=== PATIENT | female | born 1950 | race Hispanic/Latino ===

== ENCOUNTER 2018-04-09 15:48 | Emergency (ER) | payer OTHER ==
--- OUTSIDE RECORDS SUMMARY | 2018-04-09 15:51 | XMS REPORT ---
:1950 Author Organization eClinicalWorks Care Team Providers Name Role Phone DelgadoRosieh Provider Role Unavailable Allergies, Adverse Reactions, Alerts Substance Reaction Event Type codeine Info Not Available Drug Allergy Problems Problem Type Condition Code Onset Dates Condition Status Problem Vitamin D deficiency E55.9 Active Problem Diverticulosis large intestine w/o K57.30 Active perforation or abscess w/o bleeding Problem Benign essential HTN I10 Active Problem Pharyngitis, unspecified etiology J02.9 Active Assessment Atherosclerosis of coronary artery I25.10 Active of [place] heart Problem Edema of foot R60.0 Active Assessment History of CVA (cerebrovascular Z86.73 Active accident) without residual deficits Assessment CKD (chronic kidney disease) stage N18.3 Active 3, GFR 30-59 ml/min Problem Cough R05 Active Problem History of CVA (cerebrovascular Z86.73 Active accident) without residual deficits Problem Irritable bowel syndrome without K58.9 Active diarrhea Problem Atherosclerosis of coronary artery I25.10 Active of [place] heart Problem Hyperlipidemia, mixed E78.2 Active Assessment Diabetes type 2, controlled E11.9 Active Assessment Hyperlipidemia, mixed E78.2 Active Assessment Benign essential HTN I10 Active Problem Diabetes type 2, controlled E11.9 Active Problem Chronic pancreatitis K86.1 Active Problem Tremor R25.1 Active Problem Weakness R53.1 Active Assessment Tremor R25.1 Active Problem CKD (chronic kidney disease) stage N18.3 Active 3, GFR 30-59 ml/min Problem Osteoporosis M81.0 Active Medications Medication Code Code Instructions Start End Status Dosage System Date Date Amlodipine ND 81656273072 10 MG Orally Active 1 tablet Besylate Once a day Vitamin D3 [facility] 17591738811 1000 UNIT Orally Active 1 capsule Once a day Magnesium ND 79836424685 250 MG Orally Active 1 tablet Once a day with a meal Ranexa ND 82980910795 500 MG Orally Active 1 tablet Twice a day Plavix ND 83106098569 75 MG Orally Active 1 tablet Once a day Carbidopa-Levod NDC 0 Active not opa CR defined Furosemide ND 78367124527 20 MG Orally Active 1 tablet Once a day Gabapentin [facility] 62319889985 600 MG Orally Active 1 tablet Once a day Simvastatin [facility] 24316891789 10 MG Orally Active 1 tablet Once a day in the evening Crestor [facility] 85442230067 20 MG Active 1 TAB(S) ONCE A DAY (AT BEDTIME) ORALLY Carvedilol [facility] 43835457971 12.5 MG Orally Active not defined Aspir-81 [facility] 15135989923 81 MG Orally Active 1 tablet Once a day Results No Known Results Summary Purpose eClinicalWorks Submission
--- OUTSIDE RECORDS SUMMARY | 2018-04-09 15:51 | XMS REPORT ---
:1950 Author Organization eClinicalWorks Care Team Providers Name Role Phone DelgadoDomenic Provider Role Unavailable Allergies, Adverse Reactions, Alerts Substance Reaction Event Type codeine Info Not Available Drug Allergy Problems Problem Type Condition Code Onset Dates Condition Status Problem Vitamin D deficiency E55.9 Active Problem Diverticulosis large intestine w/o K57.30 Active perforation or abscess w/o bleeding Problem Benign essential HTN I10 Active Problem Pharyngitis, unspecified etiology J02.9 Active Assessment History of CVA (cerebrovascular Z86.73 Active accident) without residual deficits Problem Edema of foot R60.0 Active Assessment CKD (chronic kidney disease) stage N18.3 Active 3, GFR 30-59 ml/min Assessment Tremor R25.1 Active Problem Cough R05 Active Problem History of CVA (cerebrovascular Z86.73 Active accident) without residual deficits Problem Irritable bowel syndrome without K58.9 Active diarrhea Problem Atherosclerosis of coronary artery I25.10 Active of [place] heart Problem Hyperlipidemia, mixed E78.2 Active Assessment Benign essential HTN I10 Active Assessment Diabetes type 2, controlled E11.9 Active Assessment Atherosclerosis of coronary artery I25.10 Active of [place] heart Assessment Hyperlipidemia, mixed E78.2 Active Problem Diabetes type 2, controlled E11.9 Active Problem Chronic pancreatitis K86.1 Active Problem Tremor R25.1 Active Problem Weakness R53.1 Active Problem CKD (chronic kidney disease) stage N18.3 Active 3, GFR 30-59 ml/min Problem Osteoporosis M81.0 Active Medications Medication Code Code Instructions Start End Status Dosage System Date Date Carvedilol ND 16610252673 12.5 MG Orally Active not defined Plavix NDC 45472740734 75 MG Orally Active 1 tablet Once a day Carbidopa-Levod NDC 0 Active not opa CR defined Ranexa ND 38398961769 500 MG Orally Active 1 tablet Twice a day Crestor NDC 24943592131 20 MG Orally Inactive 1 tablet Once a day Crestor NDC 90248962222 20 MG Active 1 TAB(S) ONCE A DAY (AT BEDTIME) ORALLY Magnesium [facility] 68828750159 250 MG Orally Active 1 tablet Once a day with a meal Aspir-81 [facility] 62771231936 81 MG Orally Active 1 tablet Once a day Furosemide [facility] 89424995353 20 MG Orally Active 1 tablet Once a day Vitamin D3 [facility] 02724188532 1000 UNIT Active 1 capsule Orally Once a day Simvastatin [facility] 55922879110 20 MG Orally July 19, Active 1 tablet Once a day 2018 in the evening Gabapentin [facility] 62141675521 600 MG Orally Active 1 tablet Once a day Results No Known Results Summary Purpose eClinicalWorks Submission
--- OUTSIDE RECORDS SUMMARY | 2018-04-09 15:52 | XMS REPORT ---
:1950 Author Organization eClinicalWorks Care Team Providers Name Role Phone Danny Domenic Provider Role Unavailable Allergies, Adverse Reactions, Alerts [...] Atherosclerosis of coronary artery I25.10 Active of [place] heart Problem Edema of foot R60.0 Active Assessment History of CVA (cerebrovascular Z86.73 Active accident) without residual deficits Assessment CKD (chronic kidney disease) stage N18.3 Active 3, GFR 30-59 ml/min Problem Cough R05 Active Problem History of CVA (cerebrovascular Z86.73 Active accident) without residual deficits Problem Irritable bowel syndrome without K58.9 Active diarrhea Problem Atherosclerosis of coronary artery I25.10 Active of [place] [facility] Problem Hyperlipidemia, mixed E78.2 Active Assessment [...] Start End Status Dosage System Date Date Simvastatin ND 44907055169 10 MG Orally Active 1 tablet Once a day in the evening Aspir-[address] [facility] 62833525861 81 MG Orally Active 1 tablet Once a day Carvedilol ND 73768022248 12.5 MG Orally Active 1 tab BID Carbidopa-Levod NDC 0 Active not opa CR defined Furosemide ND 01130354529 20 MG Orally Active 1 tablet Once a day Ranexa [facility] 69700965628 500 MG Orally Active 1 tablet Twice a day Amlodipine [facility] 80639104900 10 MG Orally Active 1 tablet Besylate Once a day Magnesium [facility] 68457703972 250 MG Orally Active 1 tablet Once a day with a meal Vitamin D3 [facility] 91628778988 1000 UNIT Orally Active 1 capsule Once a day Plavix [facility] 67040213296 75 MG Orally Active 1 tablet Once a day Gabapentin [facility] 81255316801 600 MG Orally Active 1 tablet Once a day Results No Known Results Summary Purpose eClinicalWorks Submission
[2018-04-09] MEDS ORDERED: NA CHLORIDE 0.9% 0 ML ONE (17:19)
[2018-04-09 17:27] LABS: Absolute Lymphocytes (CBC) 1.9 K/uL (0.7-4.9); Absolute Monocytes 0.6 K/uL (0.1-1.3); Absolute Neutrophil 4.7 K/uL (1.8-8.0); Basophils % 1.3 % (0-1.3); Eosinophils % 2.1 % (0-4.4); Hematocrit 41.5 % (36.0-45.0); Lymphocytes % 25.3 % (15.3-44.8); MPV 8.1 fL (7.6-11.3); RBC Red Blood Cell Count 4.22 M/uL (3.86-4.86)
[2018-04-09] MEDS ORDERED: NA CHLORIDE 0.9% 500 ML ONE (17:30)
[2018-04-09 18:00] LABS: Albumin 4.2 g/dL (3.4-5.0); Bilirubin Direct 0.2 mg/dL (0-0.2); Bilirubin Total 0.8 mg/dL (0.2-1.0); Potassium 3.8 mmol/L (3.5-5.1); Protein, Total 8.3 g/dL (6.4-8.2)
[2018-04-09 18:03] LABS: Urine Bacteria <20 /HPF (<20); Urine Culture Reflex Order NOT NEEDED; Urine RBC <5 /HPF (NONE SEEN)
--- NOTE | 2018-04-09 19:47 | RAD REPORT ---
EXAM DESCRIPTION: CT - Abdomen Pelvis W Contrast - 04/09/2018 7:35 pm CLINICAL HISTORY: Abdominal pain, right lower quadrant pain, history of chronic abdominal pain, dive rticulitis, IBS, pancreatitis and renal insufficiency; prior cholecystectomy and hysterectomy COMPARISON: June 2012 TECHNIQUE: Biphasic, helical CT imaging of the abdomen and pelvis was performed following 100 ml non -ionic IV contrast. Oral contrast was given. All CT scans are performed using dose optimization technique as appropriate and may include automated exposure control or mA/KV adjustment according to patient size. FINDINGS: No suspicious findings in the lung bases. The liver, spleen, and pancreas show no suspicious findings. Liver attenuation is borderline fatty in filtrated. Gallbladder is absent. Biliary tree is dilated but not outside of normal for a post cholec ystectomy patient. Duct stones can be occult. No pancreatitis findings. Symmetric renal function is seen with no hydronephrosis or suspicious renal mass. No pyelonephritis o r acute parenchymal process. No bladder abnormalities. No adrenal abnormalities. A 3.5 centimeter sylvain ign right renal cyst is present. No dilated bowel loops or bowel wall thickening. No appendicitis findings. No inflammatory bowel fischer ges identifiable. Patient does have mild to moderate sigmoid diverticulosis and mild retained stool i n the left side colon. No active colon process identifiable. No free air, free fluid or inflammatory stranding. No hernia, mass or bulky lymphadenopathy. Uterus is absent. No ovarian abnormality seen. No suspicious bony findings. Degenerative changes are present. IMPRESSION: Contrast enhanced CT abdomen and pelvis imaging shows no active abdominal or pelvic proc ess. Nonacute findings are detailed in the body of the report. Right renal cyst has enlarged but is other sunshine unremarkable.
[2018-04-09 19:51] LABS: Urine Blood NEGATIVE (NEG); Urine Glucose NEGATIVE (NEG); Urine Protein NEGATIVE (NEG)
--- NOTE | 2018-04-09 20:36 | ER ---
Nurse's Notes [facility] Name: Elisabeth Law Age: 68 yrs Sex: Female : 1950 Arrival Date: 04/09/2018 Time: 15:50 Bed 30 Private MD: Domenic Delgado Diagnosis: Low back pain;Diverticulosis of large intestine without perforation or abscess without bleeding Presentation: 04/09 16:18 Presenting complaint: Patient states: pain to R hip, down leg, and into stomach for the ch past month, getting worse, today it nearly dropped me to my knee. Transition of care: patient was not received from another setting of care. Onset of symptoms was March 2018. Risk Assessment: Do you want to hurt yourself or someone else? Patient reports no desire to harm self or others. Initial Sepsis Screen: Does the patient meet any 2 criteria? No. Patient's initial sepsis screen is negative. Does the patient have a suspected source of infection? No. Patient's initial sepsis screen is negative. Care prior to arrival: Medication(s) given: Tylenol. 16:18 Method Of Arrival: Ambulatory 16:18 Acuity: SHANA 3 Triage Assessment: 16:20 General: Appears in no apparent distress. comfortable, Behavior is calm, cooperative, ch appropriate for age. Pain: Complains of pain in back, abdomen, right iliac crest, right hip and lateral aspect of right thigh Pain currently is 4 out of 10 on a pain scale. at worst was 9 out of 10 on a pain scale. Historical: - Allergies: 16:20 Codeine; - Home Meds: 16:48 Amlodipine Besylate 10mg .5 tab daily [Active]; furosemide 20 mg Oral tab 1 tab once ca1 daily [Active]; carvedilol 25 mg oral tab .5 tab 2 times per day [Active]; Ranexa 500 mg oral Tb12 1 tab 2 times per day [Active]; clopidogrel 75 mg oral tab 1 tab once daily [Active]; simvastatin 20 mg Oral tab .5 tab once daily [Active]; Ecotrin 81 mg Oral 1 tab once daily [Active]; carbidopa-levodopa 25-100 mg Oral tab 1 tab 3 times per day [Active]; Nature Made D3 25mcg (1000 UI) daily [Active]; - PMHx: 16:20 Chronic pain; Diverticulitis; Hyperlipidemia; Hypertension; Irritable bowel syndrome; ch Osteoporosis; Pancreatitis; renal insufficiency; Diabetes - NIDDM; - PSHx: 16:20 neck-carotid; Cholecystectomy; Hysterectomy; ch - Immunization history:: Adult Immunizations up to date, Flu vaccine is up to date. - Social history:: Smoking status: Patient/guardian denies using tobacco, Patient/guardian denies using alcohol, street drugs. - Ebola Screening: : Patient negative for fever greater than or equal to 101.5 degrees Fahrenheit, and additional compatible Ebola Virus Disease symptoms Patient denies exposure to infectious person Patient denies travel to an Ebola-affected area in the 21 days before illness onset No symptoms or risks identified at this time. Screenin:32 Abuse screen: Denies threats or abuse. Denies injuries from another. Nutritional ca1 screening: No deficits noted. Tuberculosis screening: No symptoms or risk factors identified. Fall Risk None identified. IV access (20 points). Ambulatory Aid- Crutches/Cane/Walker (15 pts). Gait- Impaired (20 pts.). Assessment: 16:32 General: Appears in no apparent distress. uncomfortable, Behavior is cooperative, ca1 appropriate for age. Pain: Complains of pain in back and right iliac crest and right hip Pain radiates to right leg and pelvis and abdomen and lateral aspect of right thigh Pain currently is 4 out of 10 on a pain scale. at worst was 10 out of 10 on a pain scale. Quality of pain is described as burning, pressure, Is episodic, lasting a few seconds. Aggravated by repositioning. Neuro: Level of Consciousness is awake, alert, obeys commands, Oriented to person, place, time, situation, Reports dizziness. Neuro: Reports dizziness. Cardiovascular: Heart tones S1 S2 present Capillary refill < 3 seconds Patient's skin is warm and dry. Respiratory: Airway is patent Respiratory effort is even, unlabored, Respiratory pattern is regular, symmetrical, Breath sounds are clear bilaterally. GI: Abdomen is round non-distended, Bowel sounds present X 4 quads. Abd is soft and non tender X 4 quads. : No signs and/or symptoms were reported regarding the genitourinary system. EENT: No signs and/or symptoms were reported regarding the EENT system. Derm: Skin is intact, is healthy with good turgor, Skin is pink, warm \T\ dry. Musculoskeletal: Circulation, motion, and sensation intact. Capillary refill < 3 seconds. 17:30 Reassessment: Patient appears in no apparent distress at this time. Patient and/or ca1 family updated on plan of care and expected duration. Pain level reassessed. Patient is alert, oriented x 3, equal unlabored respirations, skin warm/dry/pink. For CT scan, waiting for contrast to flow through GI. 18:45 Reassessment: Patient appears in no apparent distress at this time. Patient and/or ca1 family updated on plan of care and expected duration. Pain level reassessed. Patient is alert, oriented x 3, equal unlabored respirations, skin warm/dry/pink. 19:50 Reassessment: Patient appears in no apparent distress at this time. Patient and/or ca1 family updated on plan of care and expected duration. Pain level reassessed. Patient is alert, oriented x 3, equal unlabored respirations, skin warm/dry/pink. 20:48 Reassessment: Patient appears in no apparent distress at this time. Patient and/or ca1 family updated on plan of care and expected duration. Pain level reassessed. Patient is alert, oriented x 3, equal unlabored respirations, skin warm/dry/pink. Patient states feeling better. Vital Signs: 16:20 Pulse 71; Resp 16; Temp 97.1; Pulse Ox 99% on R/A; Weight 68.04 kg; Height 4 ft. 9 in. (144.78 cm); Pain 4/10; 16:22 BP 152 / 56; ch 17:30 BP 160 / 50; Pulse 72; Resp 19; Pulse Ox 100% on R/A; ca1 18:45 BP 139 / 58; Pulse 67; Resp 18; Pulse Ox 100% on R/A; ca1 19:50 BP 144 / 63; Pulse 73; Resp 19; Pulse Ox 99% on R/A; ca1 20:48 BP 136 / 59; Pulse 71; Resp 19; Pulse Ox 100% on R/A; ca1 16:20 Body Mass Index 32.46 (68.04 kg, 144.78 cm) ED Course: 15:50 Patient arrived in ED. mr 15:51 Francesco Delgado MD is Private Physician. mr 15:51 Domenic Delgado DO is Private Physician. mr 16:19 Triage completed. 16:20 Arm band placed on left wrist. Patient placed in an exam room, on a stretcher. ch 16:28 Majo Martines, RN is Primary Nurse. ca1 16:32 Patient has correct armband on for positive identification. Bed in low position. Call ca1 light in reach. Side rails up X 1. Pulse ox on. NIBP on. Warm blanket given. 16:43 Alex Madrid PA is PHCP. cp 16:43 Lance Peralta MD is Attending Physician. cp 17:15 Inserted saline lock: 22 gauge in right antecubital area, using aseptic technique. ca1 Blood collected. 17:15 No provider procedures requiring assistance completed. ca1 17:16 Oral contrast given. jj2 19:[address] via wheelchair. jj2 19:36 CT completed. Patient tolerated procedure well. Patient moved back from CT. 2 19:37 CT Abd/Pelvis - W/Contrast In Process Unspecified. EDMS 20:49 IV discontinued, intact, bleeding controlled, No redness/swelling at site. Pressure ca1 dressing applied. Administered Medications: 17:20 Drug: NS 0.9% 500 ml Route: IV; Rate: bolus; Site: right antecubital; ca1 18:00 Follow up: Response: No adverse reaction; IV Status: Completed infusion ca1 20:36 Drug: UltRAM 50 mg Route: PO; ca1 20:48 Follow up: Response: Medication administered at discharge. ca1 20:47 Not Given (Patient Refused): TORadol 30 mg IVP once ca1 Outcome: 20:35 Discharge ordered by MD. cp 20:49 Discharged to home ambulatory, with family. ca1 20:49 Condition: stable 20:49 Discharge instructions given to patient, family, Instructed on discharge instructions, follow up and referral plans. medication usage, Demonstrated understanding of instructions, follow-up care, medications, Prescriptions given X 4. 20:50 Patient left the ED. ca1 Signatures: Dispatcher [employer] EDMS Lynda Saxena, REJI RN evert Carolina Mobley Justin j Alex Madrid PA PA cp [place], [facility] Majo Martines, RN RN ca1 Corrections: (The following items were deleted from the chart) 19:09 16:32 Fall Risk None identified. ca1 ca1
--- NOTE | 2018-04-09 20:36 | EDPHYS ---
Physician Documentation [facility] Name: Elisabeth Law Age: 68 yrs Sex: Female : 1950 Arrival Date: 04/09/2018 Time: 15:50 Bed 30 Private MD: Domenic Delgado ED Physician Lance Peralta HPI: 04/09 16:55 This 68 yrs old Female presents to ER via Ambulatory with complaints of cp Abdominal Pain, Back Pain. 16:55 The patient presents with abdominal pain right lower quadrant, right lower flank area. cp Onset: The symptoms/episode began/occurred 1 month(s) ago. The symptoms radiate to right hip. 16:55 Associated signs and symptoms: Pertinent positives: constipation, right side abdominal cp pain. 16:55 Modifying factors: the symptoms are aggravated by pressure. Severity of pain: in the cp emergency department the pain has improved moderately. Historical: - Allergies: 16:20 Codeine; ch - Home Meds: 16:48 Amlodipine Besylate 10mg .5 tab daily [Active]; furosemide 20 mg Oral tab 1 tab once ca1 daily [Active]; carvedilol 25 mg oral tab .5 tab 2 times per day [Active]; Ranexa 500 mg oral Tb12 1 tab 2 times per day [Active]; clopidogrel 75 mg oral tab 1 tab once daily [Active]; simvastatin 20 mg Oral tab .5 tab once daily [Active]; Ecotrin 81 mg Oral 1 tab once daily [Active]; carbidopa-levodopa 25-100 mg Oral tab 1 tab 3 times per day [Active]; Nature Made D3 25mcg (1000 UI) daily [Active]; - PMHx: 16:20 Chronic pain; Diverticulitis; Hyperlipidemia; Hypertension; Irritable bowel syndrome; ch Osteoporosis; Pancreatitis; renal insufficiency; Diabetes - NIDDM; - PSHx: 16:20 neck-carotid; Cholecystectomy; Hysterectomy; ch - Immunization history:: Adult Immunizations up to date, Flu vaccine is up to date. - Social history:: Smoking status: Patient/guardian denies using tobacco, Patient/guardian denies using alcohol, street drugs. - Ebola Screening: : Patient negative for fever greater than or equal to 101.5 degrees Fahrenheit, and additional compatible Ebola Virus Disease symptoms Patient denies exposure to infectious person Patient denies travel to an Ebola-affected area in the 21 days before illness onset No symptoms or risks identified at this time. ROS: 17:05 Constitutional: Negative for body aches, chills, fever, poor PO intake. cp 17:05 Eyes: Negative for injury, pain, redness, and discharge. cp 17:05 Cardiovascular: Negative for chest pain, edema, palpitations. 17:05 Respiratory: Negative for cough, shortness of breath, wheezing. 17:05 Abdomen/GI: Positive for abdominal pain, constipation, of the right lower flank and right lower abdomen, Negative for vomiting, diarrhea, anorexia, black/tarry stool, rectal bleeding. 17:05 Back: Positive for pain at rest, pain with movement, of the right low back. 17:05 : Negative for urinary symptoms. 17:05 Skin: Negative for cellulitis, rash. 17:05 Neuro: Negative for altered mental status, headache, weakness. 17:05 All other systems are negative. Exam: 17:10 Constitutional: The patient appears in no acute distress, alert, awake, cp non-diaphoretic, non-toxic, well developed, well nourished. 17:10 Head/Face: Normocephalic, atraumatic. Eyes: Pupils equal round and reactive to light, cp extra-ocular motions intact. Lids and lashes normal. Conjunctiva and sclera are non-icteric and not injected. Cornea within normal limits. Periorbital areas with no swelling, redness, or edema. ENT: Nares patent. No nasal discharge, no septal abnormalities noted. Tympanic membranes are normal and external auditory canals are clear. Oropharynx with no redness, swelling, or masses, exudates, or evidence of obstruction, uvula midline. Mucous membranes moist. Chest/axilla: Normal chest wall appearance and motion. Nontender with no deformity. No lesions are appreciated. Cardiovascular: Regular rate and rhythm with a normal S1 and S2. No gallops, murmurs, or rubs. Normal PMI, no JVD. No pulse deficits. Respiratory: Lungs have equal breath sounds bilaterally, clear to auscultation and percussion. No rales, rhonchi or wheezes noted. No increased work of breathing, no retractions or nasal flaring. 17:10 Abdomen/GI: Inspection: abdomen appears normal, Bowel sounds: active, all quadrants, Palpation: soft, in all quadrants, mild abdominal tenderness, in the right lower quadrant and right lower flank area, rebound tenderness, is not appreciated, involuntary guarding, is not appreciated. 17:10 Back: pain, that is mild, of the right low back, ROM is normal. 17:10 Musculoskeletal/extremity: ROM: full passive range of motion, in the right hip. 17:10 Skin: cellulitis, is not appreciated, no rash present. 17:10 Neuro: Orientation: to person, place \T\ time. Mentation: is normal, Cerebellar function: is grossly normal, Motor: moves all fours, strength is normal, Sensation: is normal. Vital Signs: 16:20 Pulse 71; Resp 16; Temp 97.1; Pulse Ox 99% on R/A; Weight 68.04 kg; Height 4 ft. 9 in. (144.78 cm); Pain 4/10; 16:22 BP 152 / 56; ch 17:30 BP 160 / 50; Pulse 72; Resp 19; Pulse Ox 100% on R/A; ca1 18:45 BP 139 / 58; Pulse 67; Resp 18; Pulse Ox 100% on R/A; ca1 19:50 BP 144 / 63; Pulse 73; Resp 19; Pulse Ox 99% on R/A; ca1 20:48 BP 136 / 59; Pulse 71; Resp 19; Pulse Ox 100% on R/A; ca1 16:20 Body Mass Index 32.46 (68.04 kg, 144.78 cm) MDM: 16:43 Patient medically screened. cp 20:15 Data reviewed: vital signs, nurses notes, lab test result(s), radiologic studies, CT cp scan. 04/09 16:57 Order name: Basic Metabolic Panel; Complete Time: 18:14 cp 04/09 18:15 Interpretation: Normal except: CL 108; BUN 21; GFR 47. cp 04/09 16:57 Order name: CBC with Diff; Complete Time: 18:14 cp 04/09 16:57 Order name: Creatinine for Radiology; Complete Time: 18:14 cp 03 19:50 Interpretation: Normal except: GFR 50. cp 04/09 16:57 Order name: Hepatic Function; Complete Time: 18:14 cp 04/09 18:15 Interpretation: Normal except: ALT 10; TP 8.3; GLOB 4.1; A/G 1.0. cp 04/09 16:57 Order name: Lipase; Complete Time: 18:14 cp 04/09 16:57 Order name: Urine Microscopic Only; Complete Time: 18:14 cp 04/09 16:57 Order name: IV Saline Lock; Complete Time: 17:22 cp 04/09 16:57 Order name: Labs collected and sent; Complete Time: 17:22 cp 04/09 16:57 Order name: Urine Dipstick-Ancillary (obtain specimen); Complete Time: 17:22 cp 04/09 16:57 Order name: CT Abd/Pelvis - W/Contrast; Complete Time: 19:49 cp 04/09 17:26 Order name: Urine Dipstick--Ancillary (enter results); Complete Time: 20:13 bd 04/09 19:50 Order name: PO challenge; Complete Time: 19:56 cp Administered Medications: 17:20 Drug: NS 0.9% 500 ml Route: IV; Rate: bolus; Site: right antecubital; ca1 18:00 Follow up: Response: No adverse reaction; IV Status: Completed infusion ca1 20:36 Drug: UltRAM 50 mg Route: PO; ca1 20:48 Follow up: Response: Medication administered at discharge. ca1 20:47 Not Given (Patient Refused): TORadol 30 mg IVP once ca1 Disposition: 04/09/18 20:35 Discharged to Home. Impression: Low back pain, Diverticulosis of large intestine without perforation or abscess without bleeding. - Condition is Stable. - Discharge Instructions: Back Pain, Adult, Diverticulosis, Back Exercises, [id number]. - Prescriptions for Tramadol 50 mg Oral Tablet - take 1 tablet by ORAL route every 8 hours as needed; 15 tablet. Cipro 500 mg Oral Tablet - take 1 tablet by ORAL route every 12 hours for 7 days; 14 tablet. Metronidazole 500 mg Oral Tablet - take 1 tablet by ORAL route every 8 hours for 7 days; 21 tablet. Miralax 17 gram/dose Oral - take 1 packet by ORAL route once daily for 10 days dilute powder in 8 ounces of water or juice; 10 packet. - Medication Reconciliation Form, Thank You Letter, Antibiotic Education, Prescription Opioid Use form. - Follow up: Private Physician; When: 2 - 3 days; Reason: Recheck today's complaints. - Problem is new. - Symptoms have improved. Signatures: Dispatcher [employer] EDMS Lynda Saxena, RN RN ch Alex Madrid PA PA cp Majo Martines RN RN ca1 Corrections: (The following items were deleted from the chart) 20:50 20:35 04/09/2018 20:35 Discharged to Home. Impression: Low back pain; Diverticulosis of ca1 large intestine without perforation or abscess without bleeding. Condition is Stable. Forms are Medication Reconciliation Form, Thank You Letter, Antibiotic Education, Prescription Opioid Use. Follow up: Private Physician; When: 2 - 3 days; Reason: Recheck today's complaints. Problem is new. Symptoms have improved. cp
[2018-04-09] MEDS ORDERED: TRAMADOL HCL 50 MG TAB ONE (20:44)
[2018-04-09] MEDS ORDERED: KETOROLAC 30 MG/ML INJ ONE (20:45)
[2018-04-09 21:06] VITALS: TEMP 97.1
[2018-04-09 21:14] VITALS: BP 136/59; O2SAT 100
== END 2018-04-09 20:50 | disposition home or self-care (01) ==
LOC: ER 15:48
DX: K57.30 Diverticulosis of large intestine without perforation or abscess without bleeding (principal); I10 Essential (primary) hypertension; E11.9 Type 2 diabetes mellitus without complications; E78.5 Hyperlipidemia, unspecified; Z88.5 Allergy status to narcotic agent
CPT/HCPCS: 85025; 80048; 36415; 80076; 83690; 74177; Q9967; 81003; 81015; 96360; 99284

== ENCOUNTER 2018-04-09 21:50 | Emergency (ER) | payer OTHER ==
--- OUTSIDE RECORDS SUMMARY | 2018-04-09 21:52 | XMS REPORT ---
[...] Atherosclerosis of coronary artery I25.10 Active of [place] heart Problem Edema of foot R60.0 Active Assessment History of CVA (cerebrovascular Z86.73 Active accident) without residual deficits Assessment CKD (chronic kidney disease) stage N18.3 Active 3, GFR 30-59 ml/min Problem Cough R05 Active Problem History of CVA (cerebrovascular Z86.73 Active accident) without residual deficits Problem Irritable bowel syndrome without K58.9 Active diarrhea Problem Atherosclerosis of coronary artery I25.10 Active of [place] heart Problem Hyperlipidemia, mixed E78.2 Active Assessment [...] Status Dosage System Date Date Simvastatin ND 66835332485 10 MG Orally Active 1 tablet Once a day in the evening Aspir-81 [facility] 02458216795 81 MG Orally Active 1 tablet Once a day Carvedilol ND 99997473241 12.5 MG Orally Active 1 tab BID Carbidopa-Levod NDC 0 Active not opa CR defined Furosemide ND 75232999149 20 MG Orally Active 1 tablet Once a day Ranexa [facility] 86643018394 500 MG Orally Active 1 tablet Twice a day Amlodipine [facility] 35319537436 10 MG Orally Active 1 tablet Besylate Once a day Magnesium [facility] 53853025986 250 MG Orally Active 1 tablet Once a day with a meal Vitamin D3 [facility] 08959710610 1000 UNIT Orally Active 1 capsule Once a day Plavix [facility] 68010291954 75 MG Orally Active 1 tablet Once a day Gabapentin [facility] 27616014855 600 MG Orally Active 1 tablet Once a day Results No Known Results Summary Purpose eClinicalWorks Submission
--- OUTSIDE RECORDS SUMMARY | 2018-04-09 21:52 | XMS REPORT ---
[...] Atherosclerosis of coronary artery I25.[address] [place] heart Problem Edema of foot R60.0 Active Assessment History of CVA (cerebrovascular Z86.73 Active accident) without residual deficits Assessment CKD (chronic kidney disease) stage N18.3 Active 3, GFR 30-59 ml/min Problem Cough R05 Active Problem History of CVA (cerebrovascular Z86.73 Active accident) without residual deficits Problem Irritable bowel syndrome without K58.9 Active diarrhea Problem Atherosclerosis of coronary artery I25.[address] [place] heart Problem Hyperlipidemia, mixed E78.2 Active Assessment [...] Status Dosage System Date Date Amlodipine ND 74299515759 10 MG Orally Active 1 tablet Besylate Once a day Vitamin D3 [facility] 66369806216 1000 UNIT Orally Active 1 capsule Once a day Magnesium ND 66299732666 250 MG Orally Active 1 tablet Once a day with a meal Ranexa ND 77775828128 500 MG Orally Active 1 tablet Twice a day Plavix ND 64754755769 75 MG Orally Active 1 tablet Once a day Carbidopa-Levod NDC 0 Active not opa CR defined Furosemide ND 78355201183 20 MG Orally Active 1 tablet Once a day Gabapentin [facility] 50467341544 600 MG Orally Active 1 tablet Once a day Simvastatin [facility] 88169173287 10 MG Orally Active 1 tablet Once a day in the evening Crestor [facility] 36147059812 20 MG Active 1 TAB(S) ONCE A DAY (AT BEDTIME) ORALLY Carvedilol [facility] 74332966669 12.5 MG Orally Active not defined Aspir-81 [facility] 55764441164 81 MG Orally Active 1 tablet Once a day Results No Known Results Summary Purpose eClinicalWorks Submission
--- OUTSIDE RECORDS SUMMARY | 2018-04-09 21:52 | XMS REPORT ---
[...] Atherosclerosis of coronary artery I25.10 Active of [place] heart Problem Hyperlipidemia, mixed E78.2 Active Assessment Benign essential HTN I10 Active Assessment Diabetes type 2, controlled E11.9 Active Assessment Atherosclerosis of coronary artery I25.10 Active of [place] heart Assessment Hyperlipidemia, mixed E78.2 Active Problem Diabetes type 2, controlled E11.9 Active Problem Chronic pancreatitis K86.1 Active Problem Tremor R25.1 Active Problem Weakness R53.1 Active Problem CKD (chronic kidney disease) stage N18.3 Active 3, GFR 30-59 ml/min Problem Osteoporosis M81.0 Active Medications Medication Code Code Instructions Start End Status Dosage System Date Date Carvedilol ND 42195862502 12.5 MG Orally Active not defined Plavix NDC 10036410030 75 MG Orally Active 1 tablet Once a day Carbidopa-Levod NDC 0 Active not opa CR defined Ranexa ND 57798803995 500 MG Orally Active 1 tablet Twice a day Crestor NDC 16336219032 20 MG Orally Inactive 1 tablet Once a day Crestor NDC 38835271207 20 MG Active 1 TAB(S) ONCE A DAY (AT BEDTIME) ORALLY Magnesium [facility] 79337401320 250 MG Orally Active 1 tablet Once a day with a meal Aspir-81 [facility] 31908548270 81 MG Orally Active 1 tablet Once a day Furosemide [facility] 36576829821 20 MG Orally Active 1 tablet Once a day Vitamin D3 [facility] 87112168828 1000 UNIT Active 1 capsule Orally Once a day Simvastatin [facility] 43846934413 20 MG Orally July 19, Active 1 tablet Once a day 2018 in the evening Gabapentin [facility] 77551168214 600 MG Orally Active 1 tablet Once a day Results No Known Results Summary Purpose eClinicalWorks Submission
[2018-04-09 22:43] LABS: Absolute Lymphocytes (CBC) 1.7 K/uL (0.7-4.9); Absolute Monocytes 0.8 K/uL (0.1-1.3); Absolute Neutrophil 5.9 K/uL (1.8-8.0); Eosinophils % 1.7 % (0-4.4); Hematocrit 41.1 % (36.0-45.0); Lymphocytes % 19.9 % (15.3-44.8); MPV 8.4 fL (7.6-11.3); Monocytes % 9.6 % (3.3-12.3); RBC Red Blood Cell Count 4.27 M/uL (3.86-4.86)
[2018-04-09 23:08] LABS: Albumin 3.9 g/dL (3.4-5.0); Bilirubin Direct 0.2 mg/dL (0-0.2); Bilirubin Total 0.8 mg/dL (0.2-1.0); Protein, Total 7.8 g/dL (6.4-8.2)
[2018-04-09 23:19] LABS: Magnesium 2.2 mg/dL (1.8-2.4); Troponin I < 0.02 ng/mL (0.0-0.045)
[2018-04-09] MEDS ORDERED: DICYCLOMINE HCL 10 MG CAP ONE (23:28)
[2018-04-09] MEDS ORDERED: FENTANYL CITR 100 MCG/2 ML ONE (23:29)
[2018-04-09] MEDS ORDERED: NA CHLORIDE 0.9% 500 ML ONE (23:29)
[2018-04-10] MEDS ORDERED: metroNIDAZOLE 500 MG TABLET ONE (00:09)
[2018-04-10] MEDS ORDERED: CIPROFLOXACIN HCL 500 MG TAB ONE (00:10)
[2018-04-10] MEDS ORDERED: ASPIRIN 81 MG CHEWABLE TABLET ONE (00:57)
--- NOTE | 2018-04-10 01:09 | ER ---
Nurse's Notes [facility] Name: Elisabeth Law Age: 68 yrs Sex: Female : 1950 Arrival Date: 04/09/2018 Time: 21:52 Bed 17 Private MD: Domenic Delgado Diagnosis: Other chest pain;Lower abdominal pain, unspecified;Low back pain Presentation: 04/09 21:45 Presenting complaint: Patient states: that she was just discharged from here approx 30 fc minutes ago. Upon arriving home she started to have severe abd pain that radiated to her back and down her right leg. Transition of care: patient was not received from another setting of care. Onset of symptoms was April 09, 2018. Risk Assessment: Do you want to hurt yourself or someone else? Patient reports no desire to harm self or others. Initial Sepsis Screen: Does the patient meet any 2 criteria? No. Patient's initial sepsis screen is negative. Does the patient have a suspected source of infection? No. Patient's initial sepsis screen is negative. Care prior to arrival: None. 21:45 Method Of Arrival: EMS: [facility] 21:45 Acuity: SHANA 3 fc Historical: - Allergies: 22:02 Codeine; fc - Home Meds: 22:02 Amlodipine Besylate 10mg 0.5 tab daily [Active]; furosemide 20 mg Oral tab 1 tab once fc daily [Active]; carvedilol 25 mg Oral tab 0.5 tab 2 times per day [Active]; Ranexa 500 mg Oral Tb12 1 tab 2 times per day [Active]; clopidogrel 75 mg Oral tab 1 tab once daily [Active]; simvastatin 20 mg Oral tab 0.5 tab once daily [Active]; Ecotrin 81 mg Oral 1 tab once daily [Active]; carbidopa-levodopa 25-100 mg Oral tab 1 tab 3 times per day [Active]; Nature Made D3 25mcg (1000 UI) daily [Active]; - PMHx: 22:02 Chronic pain; Diverticulitis; Hyperlipidemia; Hypertension; Irritable bowel syndrome; fc Osteoporosis; Pancreatitis; renal insufficiency; Diabetes - NIDDM; CAD; - PSHx: 22:02 neck-carotid; Cholecystectomy; Hysterectomy; fc - Immunization history:: Last tetanus immunization: up to date Flu vaccine is up to date. - Social history:: Smoking status: Patient/guardian denies using tobacco, Patient/guardian denies using alcohol, street drugs. - Ebola Screening: : Patient negative for fever greater than or equal to 101.5 degrees Fahrenheit, and additional compatible Ebola Virus Disease symptoms Patient denies exposure to infectious person Patient denies travel to an Ebola-affected area in the 21 days before illness onset. Screenin:59 Abuse screen: Denies threats or abuse. Nutritional screening: No deficits noted. fc Tuberculosis screening: No symptoms or risk factors identified. Fall Risk None identified. Assessment: 22:28 General: Appears uncomfortable, Behavior is calm, cooperative. Pain: Complains of pain ed1 in low back area Pain radiates to right leg Pain currently is 7 out of 10 on a pain scale. Quality of pain is described as sharp, shooting, Pain began 1 hour ago. Is continuous. Neuro: Level of Consciousness is awake, alert, obeys commands, Oriented to person, place, time, situation. Cardiovascular: Denies chest pain, Heart tones S1 S2 present. Respiratory: Airway is patent Respiratory effort is even, unlabored, Respiratory pattern is regular, symmetrical, Breath sounds are clear bilaterally. GI: Abdomen is non-distended, Bowel sounds present X 4 quads. Abd is soft and non tender X 4 quads. : No signs and/or symptoms were reported regarding the genitourinary system. EENT: No signs and/or symptoms were reported regarding the EENT system. Derm: Skin is intact, is healthy with good turgor, Skin is dry, Skin is normal, Skin temperature is warm. Musculoskeletal: Circulation, motion, and sensation intact. Range of motion: intact in all extremities, Swelling absent Reports pain in low back area. 23:33 Reassessment: Patient appears in no apparent distress at this time. No changes from ed1 previously documented assessment. Patient and/or family updated on plan of care and expected duration. Pain level reassessed. Patient is alert, oriented x 3, equal unlabored respirations, skin warm/dry/pink. Pt unable to ambulate at this time. Pt states "I feel dizzy." Patient states symptoms have not improved. 04/10 00:04 Reassessment: Patient and/or family updated on plan of care and expected duration. Pain ed1 level reassessed. Patient is alert, oriented x 3, equal unlabored respirations, skin warm/dry/pink. Pt reports chest pressure. Provider notified. 00:24 Reassessment: EKG repeated. ed1 01:08 Reassessment: Patient and/or family updated on plan of care and expected duration. Pain ed1 level reassessed. Patient is alert, oriented x 3, equal unlabored respirations, skin warm/dry/pink. Pt continues to report chest pressure. Provider notified. No new orders received. Vital Signs: 04/09 21:45 BP 151 / 66; Pulse 75; Resp 20; Temp 97.8(O); Pulse Ox 96% on R/A; Weight 68.04 kg (R); fc Height 4 ft. 9 in. (144.78 cm) (R); Pain 7/10; 23:33 BP 146 / 63; Pulse 67; Resp 17; Pulse Ox 96% on R/A; Pain 7/10; ed1 03/06 00:04 BP 143 / 48; Pulse 69; Resp 19; Pulse Ox 95% on R/A; Pain 6/10; ed1 01:23 BP 130 / 47; Pulse 66; Resp 16; Pulse Ox 98% on R/A; Pain 6/10; ed1 03/05 21:45 Body Mass Index 32.46 (68.04 kg, 144.78 cm) fc ED Course: 04/09 21:45 Arm band placed on Patient placed in an exam room, on a stretcher. fc 21:52 Patient arrived in ED. fc 21:52 Francesco Delgado MD is Private Physician. fc 21:52 Domenic Delgado DO is Private Physician. fc 21:56 [facility] Madrid [facility] cp 21:56 Alex Larios MD is Attending Physician. cp 21:57 Triage completed. fc 21:59 Patient has correct armband on for positive identification. Placed in gown. Bed in low fc position. Call light in reach. Side rails up X 1. Pulse ox on. NIBP on. 21:59 No provider procedures requiring assistance completed. fc 22:01 Hollie Ortiz, RN is Primary Nurse. ed1 22:31 Patient requests pain medication. ed1 03/06 00:24 EKG done, by ED staff, reviewed by Alex Larios MD. ed1 01:08 Kay Sahu MD is Hospitalizing Provider. cp 01:35 XRAY Chest (1 view) In Process Unspecified. EDMS 01:40 Domenic Delgado DO is Referral Physician. cp 01:55 IV discontinued, intact, bleeding controlled, No redness/swelling at site. Pressure ed1 dressing applied. Administered Medications: 04/09 23:25 Drug: NS 0.9% 500 ml Route: IV; Rate: bolus; Site: left antecubital; ed1 03 01:57 Follow up: IV Intake: 500ml ed1 01:58 Follow up: IV Status: Completed infusion; IV Intake: 500ml ed1 04/09 23:25 Drug: fentaNYL (PF) 25 mcg Route: IVP; Site: left antecubital; ed1 04/10 00:37 Follow up: Response: No adverse reaction; Pain is decreased ed1 00:37 Follow up: Response: No adverse reaction ed1 04/09 23:25 Drug: Bentyl 20 mg Route: PO; ed1 03 00:52 Follow up: Response: No adverse reaction; Pain is unchanged, physician notified ed1 00:09 Not Given (Physician Discretion): Cipro 500 mg PO once cp 00:09 Not Given (Physician Discretion): metroNIDAZOLE 500 mg PO once cp 00:52 Drug: Aspirin Chewable Tablet 324 mg Route: PO; ed1 01:56 Follow up: Response: No adverse reaction ed1 01:56 Not Given (Physician Discretion): NS 0.9% 1000 ml IV at 75 ml/hr continuous ed1 Intake: 01:57 IV: 500ml; Total: 500ml. ed1 01:58 IV: 500ml; Total: 1000ml. ed1 Outcome: 01:09 Decision to Hospitalize by Provider. cp 01:41 Discharge ordered by . cp 01:55 Discharged to home via wheelchair, with family. ed1 01:55 Condition: good 01:55 Discharge instructions given to patient, family, Instructed on discharge instructions, follow up and referral plans. Demonstrated understanding of instructions, follow-up care. 01:57 Patient left the ED. ed1 Signatures: Dispatcher [employer] EDMS Nathaly Peters RN RN Hollie Ortiz RN RN ed1 Alex Madrid PA PA cp Corrections: (The following items were deleted from the chart) 04/09 23:34 23:33 Reassessment: Patient appears in no apparent distress at this time. No changes ed1 from previously documented assessment. Patient and/or family updated on plan of care and expected duration. Pain level reassessed. Patient is alert, oriented x 3, equal unlabored respirations, skin warm/dry/pink. ed1
--- NOTE | 2018-04-10 01:09 | EDPHYS ---
Physician Documentation [facility] Name: Elisabeth Law Age: 68 yrs Sex: Female : 1950 Arrival Date: 04/09/2018 Time: 21:52 Bed 17 Private MD: Domenic Delgado ED Physician Alex Larios HPI: 04/09 22:20 This 68 yrs old Female presents to ER via EMS with complaints of Abd Pain > 50 cp y/o. 22:20 The patient presents with abdominal pain in the lower abdomen. Onset: The cp symptoms/episode began/occurred suddenly, tonight after returning home. The symptoms radiate to right leg. Associated signs and symptoms: Pertinent positives: low back pain. Patient reports she was at home after being discharged from this ED and went to remove her pants, had sudden onset severe lower back pain. EMS was called. Historical: - Allergies: 22:02 Codeine; fc - Home Meds: 22:02 Amlodipine Besylate 10mg 0.5 tab daily [Active]; furosemide 20 mg Oral tab 1 tab once fc daily [Active]; carvedilol 25 mg Oral tab 0.5 tab 2 times per day [Active]; Ranexa 500 mg Oral Tb12 1 tab 2 times per day [Active]; clopidogrel 75 mg Oral tab 1 tab once daily [Active]; simvastatin 20 mg Oral tab 0.5 tab once daily [Active]; Ecotrin 81 mg Oral 1 tab once daily [Active]; carbidopa-levodopa 25-100 mg Oral tab 1 tab 3 times per day [Active]; Nature Made D3 25mcg (1000 UI) daily [Active]; - PMHx: 22:02 Chronic pain; Diverticulitis; Hyperlipidemia; Hypertension; Irritable bowel syndrome; fc Osteoporosis; Pancreatitis; renal insufficiency; Diabetes - NIDDM; CAD; - PSHx: 22:02 neck-carotid; Cholecystectomy; Hysterectomy; fc - Immunization history:: Last tetanus immunization: up to date Flu vaccine is up to date. - Social history:: Smoking status: Patient/guardian denies using tobacco, Patient/guardian denies using alcohol, street drugs. - Ebola Screening: : Patient negative for fever greater than or equal to 101.5 degrees Fahrenheit, and additional compatible Ebola Virus Disease symptoms Patient denies exposure to infectious person Patient denies travel to an Ebola-affected area in the 21 days before illness onset. ROS: 22:25 Constitutional: Negative for body aches, chills, fever, poor PO intake. cp 22:25 Eyes: Negative for injury, pain, redness, and discharge. cp 22:25 ENT: Negative for drainage from ear(s), ear pain, sore throat, difficulty swallowing, difficulty handling secretions. 22:25 Neck: Positive for pain at rest, Negative for injury or acute deformity. 22:25 Cardiovascular: Negative for chest pain, edema, palpitations. 22:25 Respiratory: Negative for cough, shortness of breath, wheezing. 22:25 Abdomen/GI: Positive for abdominal pain, Negative for diarrhea, constipation, black/tarry stool, rectal bleeding. 22:25 Back: Positive for pain at rest, pain with movement, of the right low back. 22:25 : Negative for urinary symptoms, difficulty urinating, bladder incontinence. 22:25 MS/extremity: Positive for pain, of the right leg, Negative for injury or acute deformity, decreased range of motion. 22:25 Skin: Negative for cellulitis, rash. 22:25 Neuro: Negative for altered mental status, headache, numbness, visual changes, weakness. 22:25 All other systems are negative. Exam: 22:30 Constitutional: The patient appears in no acute distress, alert, awake, non-toxic, well cp developed, well nourished. 22:30 Head/Face: Normocephalic, atraumatic. cp 22:30 Eyes: Periorbital structures: appear normal, Conjunctiva: normal, no exudate, no injection, Sclera: no appreciated abnormality, Lids and lashes: appear normal, bilaterally. 22:30 ENT: External ear(s): are unremarkable, Ear canal(s): are normal, clear, TM's: dullness, bilaterally, Nose: is normal, Mouth: Lips: moist, Oral mucosa: pink and intact, moist, Posterior pharynx: is normal, airway is patent, no erythema, no exudate. 22:30 Neck: ROM/movement: pain, that is mild, limited range of motion, is not appreciated, Meningeal signs: are not present, nuchal rigidity, is not appreciated. 22:30 Chest/axilla: Inspection: normal, Palpation: is normal, no crepitus, no tenderness. 22:30 Cardiovascular: Rate: normal, Rhythm: regular, Edema: is not appreciated, JVD: is not appreciated. 22:30 Respiratory: the patient does not display signs of respiratory distress, Respirations: normal, no use of accessory muscles, no retractions, no splinting, no tachypnea, labored breathing, is not present, Breath sounds: are clear throughout, no decreased breath sounds, no stridor, no wheezing. 22:30 Abdomen/GI: Inspection: abdomen appears normal, Bowel sounds: active, all quadrants, Palpation: soft, in all quadrants, mild abdominal tenderness, in the right lower quadrant, rebound tenderness, is not appreciated, voluntary guarding, is not appreciated, involuntary guarding, is not appreciated. 22:30 Back: pain, that is severe, of the right low back, ROM is painful. 22:30 Skin: cellulitis, is not appreciated, no rash present. 22:30 Neuro: Orientation: to person, place \T\ time. Mentation: is normal, Cerebellar function: is grossly normal, Motor: moves all fours, strength is normal, Sensation: is normal. 22:55 ECG was reviewed by the Attending Physician. cp Vital Signs: 21:45 BP 151 / 66; Pulse 75; Resp 20; Temp 97.8(O); Pulse Ox 96% on R/A; Weight 68.04 kg (R); fc Height 4 ft. 9 in. (144.78 cm) (R); Pain 7/10; 23:33 BP 146 / 63; Pulse 67; Resp 17; Pulse Ox 96% on R/A; Pain 7/10; ed1 04/10 00:04 BP 143 / 48; Pulse 69; Resp 19; Pulse Ox 95% on R/A; Pain 6/10; ed1 01:23 BP 130 / 47; Pulse 66; Resp 16; Pulse Ox 98% on R/A; Pain 6/10; ed1 04/09 21:45 Body Mass Index 32.46 (68.04 kg, 144.78 cm) fc MDM: 04/09 21:56 Patient medically screened. cp 23:00 Differential diagnosis: AAA, acute coronary syndrome, diverticulitis, gastritis, cp non-specific abd pain, Pyelonephritis, Ureterolithiasis, urinary tract infection, chronic low back pain. 04/10 00:30 Data reviewed: vital signs, nurses notes, lab test result(s), EKG. 01:37 Physician consultation: Kay Sahu MD was contacted at 01:37, regarding admission, cp to the telemetry unit. in the emergency department to see patient at 01:30, evaluates patient, reviews labs, EKG and recommends patient is stable for discharge to home. Discussed findings of CT showing diverticulosis and recommends return to ED worsen symptoms and no antibiotic use at this time. 04/09 22:00 Order name: Basic Metabolic Panel; Complete Time: 23:30 cp 04/09 23:30 Interpretation: Normal except: CL 109; GLUC 139; BUN 20; GFR 51. cp 04/09 22:00 Order name: CBC with Diff; Complete Time: 23:30 04/09 23:30 Interpretation: Reviewed. 04/09 22:00 Order name: Creatinine for Radiology; Complete Time: 23:30 cp 04/09 22:00 Order name: Hepatic Function; Complete Time: 23:30 cp 04/09 22:00 Order name: Lipase; Complete Time: 23:30 cp 04/09 22:19 Order name: Magnesium; Complete Time: 23:30 cp 04/09 22:19 Order name: Troponin I; Complete Time: 23:30 cp 04/10 00:31 Order name: XRAY Chest (1 view) cp 04/09 22:00 Order name: IV Saline Lock; Complete Time: 22:31 cp 04/09 22:00 Order name: Labs collected and sent; Complete Time: 22:31 cp 04/09 22:19 Order name: EKG; Complete Time: 22:20 cp 04/09 22:19 Order name: EKG - Nurse/Tech; Complete Time: 23:24 cp EC/05 22:55 Rate is 68 beats/min. Rhythm is regular. NC interval is normal. QRS interval is normal. cp QT interval is normal. Interpreted by me. Reviewed by me. Administered Medications: 23:25 Drug: NS 0.9% 500 ml Route: IV; Rate: bolus; Site: left antecubital; ed1 03/ 01:57 Follow up: IV Intake: 500ml ed1 01:58 Follow up: IV Status: Completed infusion; IV Intake: 500ml ed1 04/09 23:25 Drug: fentaNYL (PF) 25 mcg Route: IVP; Site: left antecubital; ed1 04/10 00:37 Follow up: Response: No adverse reaction; Pain is decreased ed1 00:37 Follow up: Response: No adverse reaction ed1 03 23:25 Drug: Bentyl 20 mg Route: PO; ed1 04/10 00:52 Follow up: Response: No adverse reaction; Pain is unchanged, physician notified ed1 00:09 Not Given (Physician Discretion): Cipro 500 mg PO once cp 00:09 Not Given (Physician Discretion): metroNIDAZOLE 500 mg PO once cp 00:52 Drug: Aspirin Chewable Tablet 324 mg Route: PO; ed1 01:56 Follow up: Response: No adverse reaction ed1 01:56 Not Given (Physician Discretion): NS 0.9% 1000 ml IV at 75 ml/hr continuous ed1 Disposition: 11:09 Co-signature as Attending Physician, Alex Larios MD I agree with the assessment and [facility] plan of care. Disposition: 04/10/18 01:41 Discharged to Home. Impression: Other chest pain, Lower abdominal pain, unspecified, Low back pain. - Condition is Stable. - Discharge Instructions: Abdominal Pain, Adult, Back Pain, Adult, Nonspecific Chest Pain, Aspirin and Your Heart, Back Exercises, [id number]. - Medication Reconciliation Form, Thank You Letter, Antibiotic Education, Prescription Opioid Use form. - Follow up: Domenic Delgado DO; When: 1 - 2 days; Reason: Recheck today's complaints. - Problem is new. - Symptoms have improved. Signatures: Dispatcher [employer] [facility] Alex Larios MD MD cha Chretien, Felicia RN RN Hollie Barajas RN RN ed1 Alex Madrid PA PA cp Corrections: (The following items were deleted from the chart) 00:37 03 23:31 Misc. Order ordered. cp ed1 04/10 01:40 01:09 Hospitalization Ordered by Kay Sahu MD for Observation. Preliminary cp diagnosis is Chest pain, unspecified; Lower abdominal pain, unspecified. Bed requested for Telemetry/MedSurg (observation). Status is Observation. Condition is Stable. Problem is new. Symptoms have improved. UTI on Admission? No. cp 01:57 01:41 04/10/2018 01:41 Discharged to Home. Impression: Other chest pain; Lower ed1 abdominal pain, unspecified; Low back pain. Condition is Stable. Forms are Medication Reconciliation Form, Thank You Letter, Antibiotic Education, Prescription Opioid Use. Follow up: Domenic Delgado; When: 1 - 2 days; Reason: Recheck today's complaints. Problem is new. Symptoms have improved. cp
--- NOTE | 2018-04-10 01:43 | P.CNS ---
Date of Consult: 04/10/18 Reason for Consult: abdominal pain Requesting Physician: Alex Madrid Primary Care Provider: Marleen Delgado Chief Complaint: abdominal pain History of Present Illness: Ms Law is a 68 years old woman with multiple medical problems including DM II, HTN, CKD, chronic back pain, who came to ED this morning complaining of right lower quadrant pain. The patient says that she has had this pain for 1 month already, and today it was worse. She describe a constant pain, 5/10 of intensity. She denied fever, chills, nausea, vomiting or diarrhea. She had a CT abd/pelvis done showing no acute abnormalities. The patient was discharged home from ER, however, she came back later to ED complaining of the same pain. After she was told that there was no acute pathology to be treated in the hospital, she start complaining of chest pain. At my encounter, she was chest pain free. She describe a right side chest wall pain radiated to the right arm and right neck. The pain is worse with the right arm movement and head movement. Trop I is negative. EKG shows no ST-T abnormalities. Allergies codeine Allergy (Severe, Verified 08/01/13 23:11) Anaphylaxis Home medications list reviewed: Yes Home Medications: Carvedilol [Coreg*] 25 mg PO BID 06/21/12 Ranolazine [Ranexa*] 500 mg PO BID 06/21/12 Rosuvastatin [Crestor*] 20 mg PO BEDTIME 06/21/12 Clopidogrel Bisulfate [Plavix] 75 mg PO 30 MIN BEFORE HS 04/11/13 Dexlansoprazole [Dexilant] 60 mg PO DAILY 03/21/16 Gabapentin Enacarbil [Horizant] 600 mg PO BEDTIME 03/21/16 Metformin HCl [Glucophage*] 500 mg PO DAILY 03/21/16 Olmesartan/Hydrochlorothiazide [Benicar Hct 40-25 mg Tablet] mg PO BID 03/21/16 Ciprofloxacin HCl [Cipro 500 MG Tablet] 500 mg PO BID #10 tab 03/23/16 Metronidazole 500 mg PO TID #15 tablet 03/23/16 - Past Medical/Surgical History Diabetic: Yes -: HTN -: Diabetes mellitus type 2 -: Hyperlipidemia -: Carotid arterial disease -: Diverticulosis -: GERD -: Chronic renal disease -: Anemia -: Chronic back pain -: History of CVA -: Hystercotomy -: Cholecystectomy -: Carotid endarterectomy bilaterally Psychosocial/ Personal History: She is , has 4 children. She lives with her . She does not work. - Social History Smoking Status: Never smoker Alcohol use: No CD- Drugs: No Caffeine use: No Place of Residence: Home Review of Systems 10-point ROS is otherwise unremarkable Physical Examination General: Alert, Mild distress (due to anxiety) HEENT: Atraumatic, PERRLA, Mucous membr. moist/pink, EOMI, Sclerae nonicteric Neck: Supple, 2+ carotid pulse no bruit, No LAD, Without JVD or thyroid abnormality Respiratory: Clear to auscultation bilaterally, Normal air movement Cardiovascular: Regular rate/rhythm, Normal S1 S2 Gastrointestinal: Normal bowel sounds, No tenderness Musculoskeletal: No tenderness Integumentary: No rashes Neurological: Normal gait, Normal speech, Normal tone, Normal affect Lymphatics: No axilla or inguinal lymphadenopathy Laboratory Data (last 24 hrs) 04/09/18 22:25: Magnesium 2.2, Troponin I < 0.02 04/09/18 22:25: Creatinine 1.02 04/09/18 22:25: WBC 8.7 D, Hgb 13.9, Hct 41.1, Plt Count 205 04/09/18 22:25: Sodium 142, Potassium 4.0, BUN 20 H, Creatinine 1.06, Glucose 139 H, Total Bilirubin 0.8, AST 17, ALT 16, Alkaline Phosphatase 59, Lipase 118 - Problems (1) Chest pain, atypical Current Visit: Yes Status: Acute (2) Abdominal pain Onset Date: 03/22/16 Current Visit: No Status: Acute Qualifiers: Abdominal location: generalized Qualified Code(s): R10.84 - Generalized abdominal pain (3) Carotid arterial disease Onset Date: 03/22/16 Current Visit: No Status: Chronic Qualifiers: Laterality: bilateral Qualified Code(s): I77.9 - Disorder of arteries and arterioles, unspecified (4) Chronic renal disease Onset Date: 03/22/16 Current Visit: No Status: Chronic Qualifiers: Chronic kidney disease stage: stage 3 (moderate) Qualified Code(s): N18.3 - Chronic kidney disease, stage 3 (moderate) (5) Diabetes mellitus, type II Onset Date: 03/22/16 Current Visit: No Status: Chronic Qualifiers: Diabetes mellitus correction insulin use: unspecified correction insulin use status Diabetes mellitus complication status: without complication Qualified Code(s): E11.9 - Type 2 diabetes mellitus without complications (6) Hypertension Onset Date: 03/22/16 Current Visit: No Status: Chronic Qualifiers: Hypertension type: essential hypertension Qualified Code(s): I10 - Essential (primary) hypertension (7) Renal cyst Onset Date: 03/22/16 Current Visit: No Status: Chronic Conclusions/Impression: The patient came to ED due to right lower quadrant abdominal pain. She has normal WBC count, no fever, CT abd/pelis shows no signs of acute intra- abdominal process. Her chest pain is atypical, with normal cardiac enzymes and EKG. At this point, the patient will not benefit from a hospital admission. I recommend to discharge the patient with pain medication, and follow up with her PCP to continue investigating the unclear etiology of her chronic abdominal pain. The patient and her daughter understood and they are agree with the plan.
[2018-04-10 02:05] VITALS: BP 130/47; O2SAT 98
--- NOTE | 2018-04-10 08:25 | RAD REPORT ---
EXAM DESCRIPTION: RAD - Chest Single View - 04/10/2018 1:34 am CLINICAL HISTORY: CHEST PAIN Chest pain. COMPARISON: Chest Single View dated 03/22/2016; Chest Single View dated 03/21/2016; CHEST SINGLE VIEW dated 07/13/2013 FINDINGS: Portable technique limits examination quality. The lungs are grossly clear. The heart is normal in size. No displaced fractures. IMPRESSION: No acute intrathoracic process suspected.
--- NOTE | 2018-04-10 12:35 | EKG ---
Test Date: 2018-04-10 Test Time: 00:19:12 Helicopter Repairer: AKHIL MEASUREMENT RESULTS: Intervals: Rate: 70 VA: 158 QRSD: 78 QT: 394 QTc: 425 [place]: P: 49 VA: 158 QRS: 68 T: 39 INTERPRETIVE STATEMENTS: Normal sinus rhythm Nonspecific ST and T wave abnormality Abnormal ECG Compared to ECG 07/18/2016 13:39:36 ST (T wave) deviation now present Electronically Signed On 04-10-18 12:34:39 MODELING AGENCY MANAGER by Stepan Thompson
--- NOTE | 2018-04-10 12:36 | EKG ---
Test Date: 2018-04-09 Test Time: 22:45:44 Embossing Machine Tender: TAB MEASUREMENT RESULTS: Intervals: Rate: 68 VA: 136 QRSD: 76 QT: 420 QTc: 446 [place]: P: 48 VA: 136 QRS: 42 T: 57 INTERPRETIVE STATEMENTS: Normal sinus rhythm Normal ECG Compared to ECG 07/18/2016 13:39:36 No significant changes Electronically Signed On 04-10-18 12:34:55 ELECTRICAL ENGINEERING DRAFTING OFFICER by Stepan Thompson
== END 2018-04-10 01:57 | disposition home or self-care (01) ==
LOC: ER 21:50
DX: R07.89 Other chest pain (principal); M54.5 Low back pain; I10 Essential (primary) hypertension; E11.9 Type 2 diabetes mellitus without complications; Z88.5 Allergy status to narcotic agent
CPT/HCPCS: 96361; 93005 ×2; 85025; 80048; 36415; 83735; 80076; 84484; 83690; 71045; 96374; 99284; J3010

== ENCOUNTER 2018-10-23 17:55 | Emergency (ER) | payer OTHER ==
--- OUTSIDE RECORDS SUMMARY | 2018-10-23 17:58 | XMS REPORT ---
:1950 Author Organization eClinical[employer] Care Team Providers Name Role Phone Domenic Delgado Provider Role Unavailable Allergies No Known Allergies Problems Problem Type Condition Code Onset Dates Condition Status Problem Weakness R53.1 Active Problem Vitamin D deficiency E55.9 Active Problem Osteoporosis M81.0 Active Problem Other chronic pain G89.29 Active Problem Constipation, unspecified K59.00 Active constipation type Problem Diverticulitis K57.92 Active Problem Cough R05 Active Problem Benign essential HTN I10 Active Problem Adult BMI 31.0-31.9 kg/sq m Z68.31 Active Problem Pharyngitis, unspecified etiology J02.9 Active Problem Irritable bowel syndrome without K58.9 Active diarrhea Problem History of CVA (cerebrovascular Z86.73 Active accident) without residual deficits Problem Tremor R25.1 Active Problem CKD (chronic kidney disease) stage N18.3 Active 3, GFR 30-59 ml/min Problem Atherosclerosis of coronary artery I25.10 Active of ambler heart Problem Edema of foot R60.0 Active Problem Hyperlipidemia, mixed E78.2 Active Problem Diabetes type 2, controlled E11.9 Active Problem Diverticulosis large intestine w/o K57.30 Active perforation or abscess w/o bleeding Problem Chronic pancreatitis K86.1 Active Medications No Known Medications Results No Known Results Summary Purpose eClinicalWorks Submission
--- NOTE | 2018-10-23 18:23 | EDPHYS ---
Physician Documentation [facility] Name: Elisabeth Law Age: 68 yrs Sex: Female : 1950 Arrival Date: 10/23/2018 Time: 17:58 Bed 17 Private MD: ED Physician Emanuel Powers HPI: 10/23 18:19 This 68 yrs old Female presents to ER via Ambulatory with complaints of Finger kb laceration. 18:19 The patient has a laceration related to: cutting grape [place] occurred at home, and kb there are no complicating factors. The injury was accidental. The laceration(s) is(are) located on the palmar aspect of distal phalanx of left little finger. Onset: The symptoms/episode began/occurred just prior to arrival. Associated signs and symptoms: Pertinent positives: heavy bleeding, Pertinent negatives: deformity, dizziness, loss of consciousness, numbness distal to injury, suspected foreign body. The patient has not experienced similar symptoms in the past. The patient has not recently seen a physician. PT reports she was using scissors to cut grapes off of the vine and accidentally cut a piece of the tip of her left pinky off. Pt is on Plavix and Aspirin and she was worried because of the bleeding. Historical: - Allergies: 18:08 Codeine; hb - Immunization history:: Adult Immunizations up to date. - Social history:: Smoking status: Patient/guardian denies using tobacco. - Ebola Screening: : No symptoms or risks identified at this time. ROS: 18:18 Constitutional: Negative for fever, chills, and weight loss, ENT: Negative for injury, kb pain, and discharge, Neck: Negative for injury, pain, and swelling, Cardiovascular: Negative for chest pain, palpitations, and edema, Respiratory: Negative for shortness of breath, cough, wheezing, and pleuritic chest pain, Abdomen/GI: Negative for abdominal pain, nausea, vomiting, diarrhea, and constipation, MS/Extremity: Negative for injury and deformity, Neuro: Negative for headache, weakness, numbness, tingling, and seizure. 18:18 Skin: Positive for avulsion, laceration(s), of the palmar aspect of distal phalanx of left little finger. Exam: 18:18 Constitutional: This is a well developed, well nourished patient who is awake, alert, kb and in no acute distress. Head/Face: Normocephalic, atraumatic. Neck: Trachea midline, no thyromegaly or masses palpated, and no cervical lymphadenopathy. Supple, full range of motion without nuchal rigidity, or vertebral point tenderness. No Meningismus. Chest/axilla: Normal chest wall appearance and motion. Nontender with no deformity. No lesions are appreciated. Cardiovascular: Regular rate and rhythm with a normal S1 and S2. No gallops, murmurs, or rubs. Normal PMI, no JVD. No pulse deficits. Respiratory: Lungs have equal breath sounds bilaterally, clear to auscultation and percussion. No rales, rhonchi or wheezes noted. No increased work of breathing, no retractions or nasal flaring. Abdomen/GI: Soft, non-tender, with normal bowel sounds. No distension or tympany. No guarding or rebound. No evidence of tenderness throughout. MS/ Extremity: Pulses equal, no cyanosis. Neurovascular intact. Full, normal range of motion. Neuro: Awake and alert, GCS 15, oriented to person, place, time, and situation. Cranial nerves II-XII grossly intact. Motor strength 5/5 in all extremities. Sensory grossly intact. Cerebellar exam normal. Normal gait. 18:18 Skin: injury, avulsion(s), a small of the palmar aspect of distal phalanx of left little finger. Vital Signs: 18:08 BP 135 / 58; Pulse 87; Resp 16; Temp 97.8; Pulse Ox 100% on R/A; Weight 63.96 kg; hb Height 4 ft. 9 in. (144.78 cm); Pain 2/10; 18:08 Body Mass Index 30.51 (63.96 kg, 144.78 cm) hb MDM: 18:12 Patient medically screened. kb 18:18 Data reviewed: vital signs, nurses notes. Data interpreted: Pulse oximetry: on room air kb is 100 %. Interpretation: normal. Counseling: I had a detailed discussion with the patient and/or guardian regarding: the historical points, exam findings, and any diagnostic results supporting the discharge/admit diagnosis, the need for outpatient follow up, a family practitioner, to return to the emergency department if symptoms worsen or persist or if there are any questions or concerns that arise at home. 10/23 18:17 Order name: Dressing - Wound: surgicel and pressure dressing; Complete Time: 18:25 kb Administered Medications: 18:40 Drug: Tetanus-Diphtheria Toxoid Adult 0.5 ml {Service Administrator: [employer]. Exp: ca1 06/18/2020. Lot #: [id number]. } Route: IM; Site: right deltoid; 18:55 Follow up: Response: No adverse reaction ca1 Disposition: 10/24 08:55 Co-signature as Attending Physician, Emnauel Powers MD I agree with the assessment and kdr plan of care. Disposition: 10/23/18 18:22 Discharged to Home. Impression: Laceration without foreign body of left little finger with damage to nail - avulsion laceration. - Condition is Stable. - Discharge Instructions: Laceration Care, Adult, [id number]. - Medication Reconciliation Form, Thank You Letter, Antibiotic Education, Prescription Opioid Use form. - Follow up: Emergency Department; When: As needed; Reason: Worsening of condition. Follow up: Private Physician; When: 2 - 3 days; Reason: Recheck today's complaints, Continuance of care, Re-evaluation by your physician. Signatures: Falguni Ortiz, JUKE BOX MECHANIC-C JUKE BOX MECHANIC-Cameronb Emanuel Powers MD MD [facility] Tiffanie Sharp RN RN Majo Martines RN RN ca1 Corrections: (The following items were deleted from the chart) 10/23 18:57 18:22 10/23/2018 18:22 Discharged to Home. Impression: Laceration without foreign body ca1 of left little finger with damage to nail - avulsion laceration. Condition is Stable. Forms are Medication Reconciliation Form, Thank You Letter, Antibiotic Education, Prescription Opioid Use. Follow up: Emergency Department; When: As needed; Reason: Worsening of condition. Follow up: Private Physician; When: 2 - 3 days; Reason: Recheck today's complaints, Continuance of care, Re-evaluation by your physician. kb
--- NOTE | 2018-10-23 18:23 | ER ---
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 Transition of care: patient was not received from another setting of care. Onset of symptoms was October 23, 2018. Risk Assessment: Do you want to hurt yourself or someone else? Patient reports no desire to harm self or others. Initial Sepsis Screen: Does the patient meet any 2 criteria? No. Patient's initial sepsis screen is negative. Does the patient have a suspected source of infection? No. Patient's initial sepsis screen is negative. Care prior to arrival: None. 18:07 Method Of Arrival: Ambulatory hb 18:07 Acuity: SHANA 4 hb Historical: - Allergies: 18:08 Codeine; hb - Immunization history:: Adult Immunizations up to date. - Social history:: Smoking status: Patient/guardian denies using tobacco. - Ebola Screening: : No symptoms or risks identified at this time. Screenin:20 Abuse screen: Denies threats or abuse. Denies injuries from another. Nutritional ca1 screening: No deficits noted. Tuberculosis screening: No symptoms or risk factors identified. Fall Risk None identified. Assessment: 18:20 General: Appears in no apparent distress. comfortable, Behavior is calm, cooperative, ca1 appropriate for age. Pain: Complains of pain in palmar aspect of distal phalanx of left little finger Pain currently is 4 out of 10 on a pain scale. Pain began 30 min ago. Derm: Skin is healthy with good turgor, Skin is pink, warm \T\ dry. Musculoskeletal: Circulation, motion, and sensation intact. Capillary refill < 3 seconds, Range of motion: intact in all extremities. Injury Description: Laceration sustained to palmar aspect of distal phalanx of left little finger is clean, 0.5 to 2.5 cm long, bleeding moderately, was sustained less than 30 minutes ago. a small amount of bleeding noted at this time. Vital Signs: 18:08 BP 135 / 58; Pulse 87; Resp 16; Temp 97.8; Pulse Ox 100% on R/A; Weight 63.96 kg; hb Height 4 ft. 9 in. (144.78 cm); Pain 2/10; 18:08 Body Mass Index 30.51 (63.96 kg, 144.78 cm) hb ED Course: 17:58 Patient arrived in ED. mr 17:58 Francesco Delgado MD is Private Physician. mr 18:08 Triage completed. hb 18:08 Arm band placed on. hb 18:09 Majo Martines, RN is Primary Nurse. ca1 18:11 Falguni Ortiz FNP-C is [facility]. kb 18:11 Emanuel Powers MD is Attending Physician. kb 18:20 Patient has correct armband on for positive identification. Placed in gown. Bed in low ca1 position. Call light in reach. Side rails up X 1. Pulse ox on. NIBP on. 18:26 Dressings: SURGICEL AND PRESSURE DRESSING . [facility] 18:43 No provider procedures requiring assistance completed. Patient did not have IV access ca1 during this emergency room visit. Administered Medications: 18:40 Drug: Tetanus-Diphtheria Toxoid Adult 0.5 ml {Typist: [email or web address]. Exp: ca1 06/18/2020. Lot #: [id number]. } Route: IM; Site: right deltoid; 18:55 Follow up: Response: No adverse reaction ca1 Outcome: 18:22 Discharge ordered by . kb 18:56 Discharged to home ambulatory, with significant other. ca1 18:56 Condition: stable 18:56 Discharge instructions given to patient, Instructed on discharge instructions, follow up and referral plans. wound care, Demonstrated understanding of instructions, follow-up care, wound care. 18:57 Patient left the ED. ca1 Signatures: Falguni Ortiz FNP-C FNP-Ckb Carolina Mobley Tiffanie Sharp RN RN hb Martinez, Maria [facility] Majo Martines RN RN [facility]
[2018-10-23] MEDS ORDERED: TETANUS & DIPHTHERIA TOX,ADULT 0.5 ML VIAL ONE (18:35)
[2018-10-23 22:36] VITALS: BP 135/58; TEMP 97.8; O2SAT 100
== END 2018-10-23 18:57 | disposition home or self-care (01) ==
LOC: ER 17:55
DX: S61.317A Laceration without foreign body of left little finger with damage to nail, initial encounter (principal); W45.8XXA Other foreign body or object entering through skin, initial encounter; Y93.H2 Activity, gardening and landscaping; Y92.009 Unspecified place in unspecified non-institutional (private) residence as the place of occurrence of the external cause; Z23 Encounter for immunization; Z88.5 Allergy status to narcotic agent
CPT/HCPCS: 90471; 90714; 99283

== ENCOUNTER 2020-08-15 13:54 | Emergency (ER) | payer OTHER ==
--- OUTSIDE RECORDS SUMMARY | 2020-08-15 13:57 | XMS REPORT | Continuity of Care Document ---
:1950 Author Organization [facility] t Address [address] [place] [address] Care Team Providers Name Role Phone Edward Delgado DO Primary Care Physician MCCULLOUGH Attending Clinician Unavailable MCCULLOUGH Admitting Clinician Unavailable Problems Condition Condition Condition Status Onset Resolution Last Treating Co mments Source Name Details Category Date Date Treatment Clinician Date Diverticul Diverticul Disease Active 2020-0 [place] itis, itis, 1-10 [facility] colon colon 00:00: st 00 Allergies, Adverse Reactions, Alerts Allergy Allergy Status Severity Reaction(s) Onset Inactive Treating Comm ents Source Name Type Date Date Clinician Codeine Propensi Active GI 2019- Shortness [place] to Intolerance 2-24 of breath Me thodi adverse 00:00: st reaction 00 s to drug codeine Adverse Active Info Not [facility] Reaction Available [facility] Family History Family Member Diagnosis Comments Start Date Stop Date Source Natural father Colon cancer [place] [facility] Natural mother Diabetes [place] [facility] Social History Social Habit Start Date Stop Date Quantity Comments Source History SDOH [place] [facility] Alcohol Binge History SDOH [place] [facility] Alcohol Std Drinks Tobacco use and 2019-02-17 2019-02-17 Never used [place] ethodist exposure 00:00:00 00:00:00 Alcohol intake 2019-02-17 2019-02-17 Lifetime Flaco Tucker thodist 00:00:00 00:00:00 non-drinker (finding) History SDOH 2019-02-14 2019-02-14 1 [place] [facility] Alcohol Frequency 00:00:00 00:00:00 Sex [birth year] [place] Rosa ethodist 00:00:00 00:00:00 Smoking Status Start Date Stop Date Source Never smoker [place] [facility] t Medications Ordered Filled Start Stop Current Ordering Indication Dosage Frequency Signature Comments Components Source Medication Medication Date Date Medication? Clinician (SIG) Name Name Rosuvastati Rosuvastati Yes [place] [address] [facility] n Calcium n Calcium 3-11 Delgado [facility] denosumab Yes 60mg Q180D Inject 60 [place] (PROLIA) 60 1-12 mg under Meth juan mg/mL 13:57: the skin st syringe 53 every 6 syringe (six) months. aspirin Yes 81mg QD Take 81 mg [place] (ECOTRIN) 1-12 by mouth Method i 81 MG 13:57: daily. st enteric 53 coated tablet cholecalcif Yes 1000U QD Take 1,000 Sam elver, 1-12 Units by [facility] vitamin D3, 13:57: mouth st (VITAMIN 53 daily. D3) 1,000 unit tablet clopidogrel 2018-02 Yes 75mg QD Take 75 mg Sam (PLAVIX) 75 02-05 by mouth Meth juan mg tablet 00:00: daily. st 00 simvastatin 2018-02 Yes 10mg QD Take 10 mg Sam (ZOCOR) 10 02-05 by mouth Metho di MG tablet 00:00: every st 00 evening. carbidopa-l 2018-02 Yes 1{tbl} QD Take 1 [place] evodopa -01 tablet by [facility] (SINEMET) 00:00: mouth st 25-100 mg 00 daily. May per tablet take 2nd dose in the evening if needed per amLODIPine 2018-02 Yes 10mg QD Take 10 mg [place] (NORVASC) 0-22 by mouth Method i 10 mg 00:00: daily. st tablet 00 pantoprazol 2018-02 Yes QD every [place] e 0-22 morning. [facility] (PROTONIX) 00:00: st 40 MG EC 00 tablet ranolazine 2018-02 Yes 500mg Q.5D Take 500 [place] (RANEXA) 0-15 mg by [facility] 500 MG 12 00:00: mouth 2 st hr ER 00 (two) tablet times a day. Ondansetron Ondansetron Yes Domenic [address] [facility] HCl HCl 9-04 [facility]gado [facility] furosemide Yes 20mg Q24H Take 20 mg [place] (LASIX) 20 4-06 by mouth Metho di mg tablet 00:00: daily as st 00 needed. carvedilol Yes 25mg Q.5D Take 25 mg [place] (COREG) 25 9-27 by mouth 2 Met hodi MG tablet 00:00: (two) st 00 times a day. Probiotic Probiotic Yes Domenic as [facility] Pear[facility] Pearls Delgado directed [facility] Colace Colace Yes Domenic [address] [facility] Delgado as needed [facility] Ranexa Ranexa Yes [facility] 1 tablet [facility] Furosemide Furosemide Yes [facility] [address] [facility] Plavix Plavix Yes [facility] 1 tablet [facility] Carvedilol Carvedilol Yes [facility] [address] [facility] Delgado ORALLY 30 [facility] Linzess Linzess Yes Domenic not [facility] Delgado defined [facility] Gabapentin Gabapentin Yes [facility] [address] [facility]gado [facility] Benefiber Benefiber Yes Domenic as [facility] Delgado directed [facility] Amlodipine Amlodipine Yes [facility] [address] [facility] Besylate Besylate Delgado [facility] Vitamin D3 Vitamin D3 Yes [facility]omenic [address] [facility] Delgado [facility] Aspir-81 Aspir-81 Yes Domenic [address] [facility]gado [facility] Carbidopa-L Carbidopa-L Yes Domenic not [facility] evodopa CR evodopa CR Delgado defined [facility] Magnesium Magnesium Yes Domenic [address] [facility] Delgado with a [facility] - meal [facility] Pantoprazol Pantoprazol Yes Domenic [address] e Sodium e Sodium Delgado [facility] Simvastatin Simvastatin Yes Domenic [address] [facility] Delgado in the [facility] - evening [facility] Prolia Prolia Yes Domenic as [facility] Delgado directed [facility] Amlodipine Amlodipine Yes Domenic TAKE [address] [facility] [facility] Besylate Besylate Delgado TABLET BY L ukes - MOUTH Memoria EVERY DAY [facility] Carvedilol Carvedilol Yes Domenic [address] [facility] Delgado ORALLY 30 [facility] - DAYS [facility] Simvastatin Simvastatin Yes Domenic [address] [facility] [facility] Delgado in the [facility] - evening [facility] Immunizations Ordered Filled Immunization Date Status Comments [facility] e Immunization Name Name Afluria single dose Afluria single dose 2018-12-[address] [facility] 00:[facility]:00 [facility] Prevnar 13 Prevnar 13 2018-05-[address] [facility] - -Pneumonia Vaccine -Pneumonia Vaccine 00:00:00 [facility] Procedures This patient has no known procedures. Plan of Care Planned Activity Planned Date Details Comments Source Future Scheduled 2020-09-05 INFLUENZA VACCINE [place] [facility] 00:00:00 [code = INFLUENZA VACCINE] Future Scheduled 1998 BREAST CANCER [facility] thodist Test 00:00:00 SCREENING [code = BREAST CANCER SCREENING] Future Scheduled 1998 COLONOSCOPY SCREENING [place] [facility] Test 00:00:00 [code = COLONOSCOPY SCREENING] Future Scheduled 1998 SHINGLES VACCINES (#1) [place] [facility] Test 00:00:00 [code = SHINGLES VACCINES (#1)] Future Scheduled 1966 Hepatitis C screening [place] [facility] Test 00:00:00 (procedure) [code = 172850005] Future Scheduled 1960 COVID-19 VACCINE (1) [place] [facility] Test 00:00:00 [code = COVID-19 VACCINE (1)] Future Scheduled 1958 DIABETES: RETINAL EYE [place] [facility] 00:00:00 EXAM [code = DIABETES: RETINAL EYE EXAM] Future Scheduled 1958 DIABETIC FOOT EXAM [place] [facility] Test 00:00:00 [code = DIABETIC FOOT EXAM] Future Scheduled 1958 URINE MICROALBUMIN [place] [facility] Test 00:00:00 [code = URINE MICROALBUMIN] Future Scheduled 1954 65+ PNEUMOCOCCAL [facility] Test 00:00:00 VACCINE (1 of 4 - PCV13) [code = 65+ PNEUMOCOCCAL VACCINE (1 of 4 - PCV13)] Encounters Start End Encounter Admission Attending Care Care Encounter Source Date/Time Date/Time Type Type Clinicians Facility Department ID 2020-04-14 2020-04-14 [id number] 2020-03-01 2020-03-01 [facility] [id number] [facility] 2020-02-26 2020-02-26 [facility] [id number] [facility] 2020-02-23 2020-02-23 [facility] [id number] [facility] 2020-02-10 2020-02-10 [facility] [id number] [facility] 2020-02-03 2020-02-03 [facility] [id number] [facility] 2020-01-15 2020-01-15 [facility] [id number] [facility] 2020-01-12 2020-01-12 [facility] [id number] [facility] 2019-12-25 2019-12-25 [facility] [id number] [facility] 2019-12-23 2019-12-23 Out[facility] [id number] [facility] 2019-10-16 2019-10-16 [facility] [id number] 09:30:00 09:30:[address] Luke s - Drive [facility] l [facility] Outpat[facility] Clinics 2019-08-01 2019-08-01 [facility] [id number] 09[facility]50:00 09:50:00 t Eugene Eugene [employer] s - Drive [facility] Out[facility] Clinics 2019-07-17 2019-07-17 [facility] [id number] 10:00:00 10:00:00 t Eugene Eugene [employer] Luke s - Drive [facility] Medicine Outpat[facility] Clinics 2019-07-11 2019-07-11 [facility] [id number] 13:24:00 13:24:00 t Eugene Eugene Zapper s - Drive [facility] l Medicine Outpat[facility] Clinics 2019-04-16 2019-04-16 [facility] [id number] 09:00:00 09:00:00 t Eugene Eugene [employer] s - Drive [facility] l Medicine Outpati ent Clinics 2019-04-16 2019-04-16 [facility] [id number] 08:30:00 08:30:00 t Eugene Eugene [employer] s - Drive [facility] Medicine l Medicine Outpati ent Clinics 2019-03-17 2019-03-17 [facility] [id number] 10:00:00 10:00:00 t Eugene Eugene [employer] s - Drive [facility] Medicine l Medicine Outpati ent Clinics 2019-02-14 2019-02-16 Inpatient REBECCA MCCULLOUGH [facility] [id number] [place] 00:00:00 00:00:[address] 2019-01-23 2019-01-23 [facility] [id number] 11:21:00 11:21:[address] Luke s - Drive [facility] Medicine Medicine Outpati ent Clinics 2019-01-09 2019-01-09 [facility] [id number] 08:15:00 08:15:[address] Luke s - Drive [facility] Medicine Outpati ent Clinics 2018-12-31 2018-12-31 [facility] [id number] 16:44:00 16:44:00 t Eugene Eugene [employer] Luke s - Drive [facility] Medicine Outpati ent Clinics 2018-12-19 2018-12-19 [facility] [id number] 10:45:00 10:45:00 t Eugene Eugene [employer] Luke s - Drive [facility] Medicine Outpati ent Clinics 2018-10-28 2018-10-28 [facility] [id number] 09:30:00 09:30:00 t Eugene Eugene [employer] Luke s - Drive [facility] Medicine Medicine Outpati ent Clinics 2018-10-21 2018-10-21 [facility] [id number] 09:46:00 09:46:00 t Eugene Eugene [employer] Luke s - Drive [facility] Medicine Medicine Outpati ent Clinics 2018-10-09 2018-10-09 [facility] [id number] 14:15:00 14:15:00 t Eugene Eugene [employer] Luke s - Drive [facility] Medicine Medicine Outpati ent Clinics 2018-10-09 2018-10-09 [facility] [id number] 08:30:00 08:30:[address] Luke s - Drive [facility] Medicine Outpati ent Clinics 2018-07-19 2018-07-19 [facility] [id number] 10:04:00 10:04:[address] Luke s - Drive [facility] Medicine Outpati ent Clinics 2018-06-03 2018-06-03 [facility] [id number] 09:20:00 09:20:00 t Eugene Eugene [employer] - [employer] [facility] Medicine Outpati ent Clinics 2018-05-30 2018-05-30 [facility] [id number] 13:00:00 13:00:00 t Eugene [employer] [facility] Medicine Outpati ent Clinics 2018-05-01 2018-05-01 [facility] [id number] 09:15:00 09:15:00 t Eugene [employer] s - [employer] [facility] Medicine Outpati ent Clinics 2018-04-17 2018-04-17 [facility] [id number] 10:04:00 10:04:00 t Eugene [employer] [facility] Medicine Outpati ent Clinics 2018-04-11 2018-04-11 [facility] [id number] 09:45:00 09:45:00 t Eugene [employer] [facility] Medicine Outpati ent Clinics 2018 2018 [facility] [id number] [facility] 08:30:00 08:30:00 t Eugene [employer] Res[employer] [facility] Medicine Outpati ent Clinics 2017-10-02 2017-10-02 [facility] [id number] 09:00:00 09:00:00 t [employer] [facility] Medicine Outpati ent Clinics 2017-07-19 2017-07-19 [facility] [id number] 09:00:00 09:00:00 t [employer] [facility] Medicine Outpati ent Clinics Results This patient has no known results.
[2020-08-15 14:58] LABS: Absolute Lymphocytes (CBC) 1.4 K/uL (0.7-4.9); Hematocrit 40.8 % (36.0-45.0); Lymphocytes % 25.2 % (15.3-44.8); MPV 7.9 fL (7.6-11.3); RBC Red Blood Cell Count 4.16 M/uL (3.86-4.86)
[2020-08-15 15:15] LABS: Bilirubin Direct 0.2 mg/dL (0-0.2); Bilirubin Total 0.8 mg/dL (0.2-1.0); Potassium 4.2 mmol/L (3.5-5.1); Protein, Total 7.7 g/dL (6.4-8.2)
[2020-08-15 15:26] LABS: Urine Blood Negative (Negative); Urine Glucose Negative (Negative); Urine Protein Negative (Negative); Urine Specific Gravity 1.015 (1.005-1.030)
--- NOTE | 2020-08-15 16:05 | RAD REPORT ---
EXAM DESCRIPTION: CT - Abdomen Pelvis W Contrast - 08/15/2020 3:43 pm CLINICAL HISTORY: Abdominal pain COMPARISON: 2019 TECHNIQUE: Computed axial tomography of the abdomen pelvis was obtained. 100 cc Isovue-300 was admin istered intravenously. Oral contrast was not requested which limits evaluation of bowel. All CT scans are performed using dose optimization technique as appropriate and may include automated exposure control or mA/KV adjustment according to patient size. FINDINGS: The liver, spleen, pancreas, and adrenals appear unremarkable. There is no evidence of diverticulitis. Normal appendix. Small umbilical hernia Bilateral renal cysts. Hysterectomy. Cholecystectomy. Sigmoidectomy IMPRESSION: No acute abnormality is displayed.
--- NOTE | 2020-08-15 16:15 | EDPHYS ---
Physician Documentation [facility] Name: Elisabeth Law Age: 70 yrs Sex: Female : 1950 Arrival Date: 08/15/2020 Time: 13:57 Bed 16 Private MD: ED Physician Manuel Moreau HPI: 08/15 16:13 This 70 yrs old Female presents to ER via Ambulatory with complaints of kb Abdominal Pain. 16:13 The patient presents with abdominal pain right lower quadrant. Onset: The kb symptoms/episode began/occurred 9 month(s) ago. The symptoms do not radiate. Associated signs and symptoms: none. The symptoms are described as intermittent. Modifying factors: The symptoms are alleviated by nothing, the symptoms are aggravated by nothing. Severity of pain: At its worst the pain was moderate in the emergency department the pain is unchanged. The patient has not experienced similar symptoms in the past. The patient has not recently seen a physician. Pt reports RLQ pain that has been intermittent for 9 months to a year. States she normally has the pain every day, but it doesn't last all day. This time the pain started Sunday and hasn't gone away at all. . 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 - Social history:: Smoking status: Patient denies any tobacco usage or history of. ROS: 16:12 Constitutional: Negative for fever, chills, and weight loss. kb 16:12 Abdomen/GI: Positive for abdominal pain, Negative for nausea, vomiting, and diarrhea. 16:12 All other systems are negative. Exam: 16:12 Constitutional: This is a well developed, well nourished patient who is awake, alert, kb and in no acute distress. Head/Face: Normocephalic, atraumatic. ENT: Moist Mucous membranes Cardiovascular: Regular rate and rhythm with a normal S1 and S2. No gallops, murmurs, or rubs. No pulse deficits. Respiratory: Respirations even and unlabored. No increased work of breathing, no retractions or nasal flaring. Abdomen/GI: Soft, non-tender. No distention Skin: Warm, dry with normal turgor. Normal color. MS/ Extremity: Pulses equal, no cyanosis. Neurovascular intact. Full, normal range of motion. Neuro: Awake and alert, GCS 15, oriented to person, place, time, and situation. Moves all extremities. Normal gait. Psych: Awake, alert, with orientation to person, place and time. Behavior, mood, and affect are within normal limits. Vital Signs: 14:10 BP 151 / 56; Pulse 67; Resp 18 S; Temp 97.6(TE); Pulse Ox 100% on R/A; Weight 63.5 kg ca1 (R); Height 4 ft. 11 in. (149.86 cm) (R); Pain 7/10; 16:29 BP 132 / 62; Pulse 72; Resp 18; Pulse Ox 98% on R/A; ap3 14:10 Body Mass Index 28.28 (63.50 kg, 149.86 cm) ca1 MDM: 14:39 Patient medically screened. kb 16:09 Data reviewed: vital signs, nurses notes. Data interpreted: Pulse oximetry: on room air kb is 100 %. Interpretation: normal. Counseling: I had a detailed discussion with the patient and/or guardian regarding: the historical points, exam findings, and any diagnostic results supporting the discharge/admit diagnosis, lab results, radiology results, the need for outpatient follow up, a family practitioner, to return to the emergency department if symptoms worsen or persist or if there are any questions or concerns that arise at home. 08/15 14:39 Order name: Basic Metabolic Panel; Complete Time: 15:19 kb 08/15 14:39 Order name: CBC with Diff; Complete Time: 15:02 kb 08/15 14:39 Order name: Hepatic Function; Complete Time: 15:19 kb 08/15 14:39 Order name: Lipase; Complete Time: 15:19 kb 08/15 14:39 Order name: CT Abd/Pelvis - IV Contrast Only; Complete Time: 16:08 kb 08/15 15:25 Order name: Urine Dipstick-Ancillary; Complete Time: 15:27 EDMS 08/15 14:39 Order name: IV Saline Lock; Complete Time: 14:52 kb 08/15 14:39 Order name: Labs collected and sent; Complete Time: 14:52 kb 08/15 14:39 Order name: Urine Dipstick-Ancillary (obtain specimen); Complete Time: 15:58 kb Administered Medications: No medications were administered Disposition Summary: 08/15/20 16:14 Discharge Ordered Location: Home kb Condition: Stable kb Diagnosis - Abdominal pain, Generalized kb Followup: kb - With: Emergency Department - When: As needed - Reason: Worsening of condition Followup: kb - With: Private Physician - When: 2 - 3 days - Reason: Recheck today's complaints, Continuance of care, Re-evaluation by your physician Discharge Instructions: - Discharge Summary Sheet kb - Abdominal Pain, Adult, [id number] kb Forms: - Medication Reconciliation Form kb - Thank You Letter kb - Antibiotic Education kb - Prescription Opioid Use kb Signatures: Dispatcher [employer] EDFalguni Solorzano FNP-C FNP-Ckb Prokisch, Amanda RN RN ap3 Majo Martines RN RN ca1 Corrections: (The following items were deleted from the chart) 14:52 14:50 Home Meds: Nature Made D3 25mcg (1000 UI) daily; ap3 ap3
--- NOTE | 2020-08-15 16:15 | ER ---
Nurse's Notes [facility] Name: Elisabeth Law Age: 70 yrs Sex: Female : 1950 Arrival Date: 08/15/2020 Time: 13:57 Bed 16 Private MD: Diagnosis: Abdominal pain, Generalized Presentation: 08/15 14:10 Chief complaint: Patient states: RLQ pain off and on x 9 months. Haven't seen doctor to ca1 consult re pain. This time it started on Sunday08/13/2020, has been constant and did not go away. Been causing my whole body to hurt too. Coronavirus screen: Client denies travel out of the [place] in the last 14 days. At this time, the client does not indicate any symptoms associated with coronavirus-19. Ebola Screen: Patient negative for fever greater than or equal to 101.5 degrees Fahrenheit, and additional compatible Ebola Virus Disease symptoms Patient denies exposure to infectious person. Patient denies travel to an Ebola-affected area in the 21 days before illness onset. No symptoms or risks identified at this time. Initial Sepsis Screen: Does the patient meet any 2 criteria? No. Patient's initial sepsis screen is negative. Does the patient have a suspected source of infection? No. Patient's initial sepsis screen is negative. Risk Assessment: Do you want to hurt yourself or someone else? Patient reports no desire to harm self or others. Onset of symptoms was August 13, 2020. 14:10 Method Of Arrival: Ambulatory ca1 14:10 Acuity: SHANA 3 ca1 Historical: - Allergies: 14:13 Codeine; ca1 - Home Meds: 14:50 Amlodipine Besylate 10mg 0.5 tab daily [Active]; carvedilol 12.5 mg oral tab [Active]; ap3 Ranexa 500 mg Oral Tb12 1 tab 2 times per day [Active]; clopidogrel 75 mg Oral tab 1 tab once daily [Active]; simvastatin 10 mg oral tab 1 tab once daily [Active]; carbidopa-levodopa 25-100 mg Oral tab 1 tab 3 times per day [Active]; Ecotrin 81 mg Oral 1 tab once daily [Active]; furosemide 20 mg Oral tab 1 tab once daily [Active]; - PMHx: 14:13 Fabián disease; Chronic pain; Diverticulitis; Hyperlipidemia; Osteoporosis; Irritable ca1 bowel syndrome; Hypertension; Diabetes - NIDDM; Pancreatitis; CAD; renal insufficiency; - PSHx: 14:13 hysterectomy; Colon resection; neck surgery; Cholecystectomy; ca1 - Immunization history:: Client reports receiving the 2nd dose of the Covid vaccine, Client reports receiving the 1st dose of the Covid vaccine, Pneumococcal vaccine is up to date, Flu vaccine is up to date. - Social history:: Smoking status: Patient denies any tobacco usage or history of. Screenin:50 Abuse screen: Denies threats or abuse. Nutritional screening: No deficits noted. ap3 Tuberculosis screening: No symptoms or risk factors identified. Fall Risk None identified. Assessment: 14:43 General: Appears in no apparent distress. comfortable, Behavior is calm, cooperative, ap3 appropriate for age. Pain: Complains of pain in right lower quadrant Pain radiates to abdomen Pain currently is 7 out of 10 on a pain scale. at worst was 9 out of 10 on a pain scale. Quality of pain is described as aching, crampy, Pain began 9 months ago. Neuro: Level of Consciousness is awake, alert, obeys commands, Oriented to person, place, time, situation, Appropriate for age Moves all extremities. Speech is normal. Cardiovascular: Denies chest pain, shortness of breath, Capillary refill < 3 seconds. Respiratory: Airway is patent Respiratory effort is even, unlabored, Respiratory pattern is regular, symmetrical. GI: Bowel sounds present X 4 quads. Abd is soft and non tender X 4 quads. : Reports abdominal pain increases when she has a full bladder. 15:06 Reassessment: patient provided with specimen cup, wipes and education on proper urine ap3 collection. Patient verbalized understanding. . 16:07 Reassessment: Patient and/or family updated on plan of care and expected duration. Pain ap3 level reassessed. Patient is alert, oriented x 3, equal unlabored respirations, skin warm/dry/pink. Vital Signs: 14:10 BP 151 / 56; Pulse 67; Resp 18 S; Temp 97.6(TE); Pulse Ox 100% on R/A; Weight 63.5 kg ca1 (R); Height 4 ft. 11 in. (149.86 cm) (R); Pain 7/10; 16:29 BP 132 / 62; Pulse 72; Resp 18; Pulse Ox 98% on R/A; ap3 14:10 Body Mass Index 28.28 (63.50 kg, 149.86 cm) ca1 ED Course: 13:57 Patient arrived in ED. as 14:13 Triage completed. ca1 14:13 Arm band placed on right wrist. ca1 14:39 Falguni Ortiz FNP-C is [facility]. kb 14:39 Manuel Moreau MD is Attending Physician. kb 14:39 Rosalba Keene, RN is Primary Nurse. ap3 14:50 Patient has correct armband on for positive identification. Bed in low position. Call ap3 light in reach. Side rails up X2. Adult w/ patient. Pulse ox on. NIBP on. Door closed. Noise minimized. 15:42 CT Abd/Pelvis - IV Contrast Only In Process Unspecified. EDMS 16:29 No provider procedures requiring assistance completed. IV discontinued, intact, ap3 bleeding controlled, No redness/swelling at site. Pressure dressing applied. Administered Medications: No medications were administered Outcome: 16:14 Discharge ordered by MD. kb 16:29 Discharged to home via wheelchair, with family. ap3 16:29 Condition: good 16:29 Discharge instructions given to patient, family, Instructed on discharge instructions, follow up and referral plans. Demonstrated understanding of instructions, follow-up care. 16:30 Patient left the ED. ap3 Signatures: Dispatcher [employer] EDMS Falguin Ortiz FNP-C FNP-[facility] as Rosalba Keene RN RN ap3 Majo Martines RN RN ca1 Corrections: (The following items were deleted from the chart) 14:52 14:50 Home Meds: Nature Made D3 25mcg (1000 UI) daily; ap3 ap3
[2020-08-15 16:36] VITALS: TEMP 97.6
[2020-08-15 16:38] VITALS: BP 132/62; O2SAT 98
== END 2020-08-15 16:30 | disposition home or self-care (01) ==
LOC: ER 13:54
DX: R10.84 Generalized abdominal pain (principal); N28.9 Disorder of kidney and ureter, unspecified; I10 Essential (primary) hypertension; E11.9 Type 2 diabetes mellitus without complications; Z88.5 Allergy status to narcotic agent
CPT/HCPCS: 85025; 80048; 36415; 80076; 81003; 83690; 74177; 99283; Q9967

== ENCOUNTER 2020-08-19 00:47 | Emergency (ER) | payer OTHER ==
--- OUTSIDE RECORDS SUMMARY | 2020-08-19 00:51 | XMS REPORT | Continuity of Care Document ---
:1950 Author Organization [facility] t Address [address] [place] [address] Care Team Providers Name Role Phone Edward [...] Date Date Clinician Codeine Propensi Active GI 2018- Shortness [place] to Intolerance 2-24 of breath Me thodi adverse 00:00: st reaction 00 s to drug codeine Adverse Active Info Not [facility] Reaction Available [facility] Family History Family Member Diagnosis Comments Start Date Stop Date Source Natural father Colon cancer [place] [facility] Natural mother Diabetes [facility] Social History Social Habit Start Date Stop Date Quantity Comments Source History SDOH [place] [facility] Alcohol Binge History SDOH [place] [facility] Alcohol Std Drinks Tobacco use and 2019-02-17 2019-02-17 Never used [place] [facility] exposure 00:00:00 00:00:00 Alcohol intake 2019-02-17 2019-02-17 Lifetime [place] [facility] 00:00:00 00:00:00 non-drinker (finding) History SDOH 2019-02-14 2019-02-14 1 [place] [facility] Alcohol Frequency 00:00:00 00:00:00 Sex [birth year] [employer] [facility]ist 00:00:00 00:00:00 Smoking Status Start Date Stop Date Source Never smoker [place] [facility] t Medications Ordered Filled Start Stop [...] [facility] Vitamin D3 Vitamin D3 Yes Domenic [address] [facility] Delgado [facility] Aspir-81 Aspir-81 Yes Domenic [address] Delgado [facility] Carbidopa-L Carbidopa-L Yes Domenic not [facility] evodopa CR evodopa CR Delgado defined [facility] ent [facility] Magnesium Magnesium Yes [place]omenic [address] [facility] Delgado with a [facility] - meal [facility] Pantoprazol Pantoprazol Yes [place]omen[place] [address] e Sodium e Sodium Delgado [facility] - [facility] Simvastatin Simvastatin Yes [place]omenic [address] [facility] Delgado in the [facility] - evening [facility] ent Clinics Prolia Prolia Yes Domenic as [facility] Delgado directed [facility] - [facility] ent [facility] Amlodipine Amlodipine Yes Dmoenic TAKE [address] [facility] Besylate Besylate Delgado TABLET BY L [facility] Carvedilol Carvedilol Yes Domenic [address] [facility]gado ORALLY 30 [facility] - DAYS [facility] ent [facility] Simvastatin Simvastatin Yes [place]omenic [address] [facility]gado in the [facility] - evening [facility] Immunizations Ordered Filled Immunization Date Status Comments [facility] e Immunization Name Name Afluria single dose Afluria single dose 2018-12-[address] [facility] - 00:00:00 [facility] Prevnar 13 Prevnar 13 2018-05-[address] [facility] - -Pneumonia Vaccine -Pneumonia Vaccine 00:00:00 [facility] Procedures This patient has no known procedures. Plan of Care Planned Activity Planned Date Details Comments Source Future Scheduled 2020-09-05 INFLUENZA VACCINE [place] [facility] Test 00:00:00 [code = INFLUENZA VACCINE] Future Scheduled 1998 BREAST CANCER [facility] Test 00:00:00 SCREENING [code = BREAST CANCER SCREENING] Future Scheduled 1998 COLONOSCOPY SCREENING [place] [facility] Test 00:00:00 [code = COLONOSCOPY SCREENING] Future Scheduled 1998 SHINGLES VACCINES (#1) [place] [facility] Test 00:00:00 [code = SHINGLES VACCINES (#1)] Future Scheduled 1966 Hepatitis C screening [place] [facility] Test 00:00:00 (procedure) [code = 657041259] Future Scheduled 1960 COVID-19 VACCINE (1) [place] [facility] Test 00:00:00 [code = COVID-19 VACCINE (1)] Future Scheduled 1958 DIABETES: RETINAL EYE [place] [facility] Test 00:00:00 EXAM [code = DIABETES: RETINAL EYE EXAM] Future Scheduled 1958 DIABETIC FOOT EXAM [place] [facility] Test 00:00:00 [code = DIABETIC FOOT EXAM] Future Scheduled 1958 URINE MICROALBUMIN [place] [facility] Test 00:00:00 [code = URINE MICROALBUMIN] Future Scheduled 1954 65+ PNEUMOCOCCAL [place] [facility] Test 00:00:00 VACCINE (1 of 4 - PCV13) [code = 65+ PNEUMOCOCCAL VACCINE (1 of 4 - PCV13)] Encounters Start End Encounter Admission Attending Care Care Encounter Source Date/Time Date/Time Type Type Clinicians Facility Department ID 2020-08-16 2020-08-16 [id number] 2020-04-14 2020-04-14 [facility] [id number] [facility] 2020-03-01 2020-03-01 [facility] [id number] [facility] 2020-02-26 2020-02-26 [facility] [id number] [facility] 2020-02-23 2020-02-23 [facility] [id number] [facility] 2020-02-10 2020-02-10 [facility] [id number] [facility] 2020-02-03 2020-02-03 [facility] [id number] [facility] 2020-01-15 2020-01-15 [facility] [id number] [facility] 2020-01-12 2020-01-12 [facility] [id number] [facility] 2019-12-25 2019-12-25 [facility] [id number] [facility] 2019-12-23 2019-12-23 [facility] [id number] [facility] 2019-10-16 2019-10-16 [facility] [id number] 09:30:00 09:30:[address] Luke s - Drive [facility] l Medicine Outpati ent Clinics 2019-08-01 2019-08-01 [facility] [id number] 09[facility]50:00 09:50:00 t Kingsley Kingsley Livevol s - Drive [facility] Medicine l Medicine Outpati ent Clinics 2019-07-17 2019-07-17 [facility] [id number] 10:00:00 10:00:00 t Kingsley Kingsley FP Complete [place] [facility] - Drive [facility] l Medicine Outpati ent Clinics 2019-07-11 2019-07-11 [facility] [id number] 13:24:00 13:24:00 t Kingsley Kingsley FP Complete [place] s - Drive [facility] l Medicine Outpati ent Clinics 2019-04-16 2019-04-16 [facility] [id number] 09:00:00 09:00:00 t Kingsley Kingsley [place] - Drive [facility] Medicine l Medicine Outpati ent Clinics 2019-04-16 2019-04-16 [facility] [id number] 08:30:00 08:30:[address] Inogen s - Drive [facility] Medicine l Medicine Outpati ent Clinics 2019-03-17 2019-03-17 [facility] [id number] 10:00:00 10:00:00 t Kingsley Kingsley FP Complete [place] s - Drive [facility] Medicine l Medicine Outpati ent Clinics 2019-02-14 2019-02-16 Inpatient [facility] [id number] [place] 00:00:00 00:00:[address] 2019-01-23 2019-01-23 [facility] [id number] 11:21:00 11:21:00 t Kingsley Kingsley FP Complete [place] - Drive [facility] Medicine l Medicine Outpati ent Clinics 2019-01-09 2019-01-09 [facility] [id number] 08:15:00 08:15:00 t Kingsley Kingsley FP Complete [place] s - Drive [facility] Medicine l Medicine Outpati ent Clinics 2018-12-31 2018-12-31 [facility] [id number] 16:44:00 16:44:00 t Kingsley Kingsley [place] - Drive [facility] Medicine Medicine Outpati ent Clinics 2018-12-19 2018-12-19 [facility] [id number] 10:45:00 10:45:00 t Kingsley Kingsley FP Complete LuMeilimei s - FP Complete [facility] Medicine l Medicine Outpati ent Clinics 2018-10-28 2018-10-28 [facility] [id number] 09:30:00 09:30:00 t Kingsley Kingsley FP Complete LuMeilimei s - FP Complete [facility] Medicine l Medicine Outpati ent Clinics 2018-10-21 2018-10-21 [facility] [id number] 09:46:00 09:46:00 t Kingsley Kingsley FP Complete [place] s - Drive [facility] Medicine l Medicine Outpati ent Clinics 2018-10-09 2018-10-09 [facility] [id number] 14:15:00 14:15:00 t Kingsley Kingsley FP Complete [place] s - Drive [facility] Medicine l Medicine Outpati ent Clinics 2018-10-09 2018-10-09 [facility] [id number] 08:30:00 08:30:00 t Kingsley Kingsley FP Complete [place] s - Drive [facility] Medicine l Medicine Outpati ent Clinics 2018-07-19 2018-07-19 [facility] [id number] 10:04:00 10:04:[address] Luke s - Drive [facility] Medicine l Medicine Outpati ent Clinics 2018-06-03 2018-06-03 [facility] [id number] 09:20:00 09:20:00 t Kingsley Kingsley FP Complete [place] s - Drive [facility] l Medicine Outpati ent Clinics 2018-05-30 2018-05-30 [facility] [id number] 13:00:00 13:00:00 t Kingsley Kingsley FP Complete [place] - Drive [facility] Medicine l Medicine Outpati ent Clinics 2018-05-01 2018-05-01 [facility] [id number] 09:15:00 09:15:00 t Kingsley Kingsley [place] - Drive [facility] Medicine l Medicine Outpati ent Clinics 2018-04-17 2018-04-17 [facility] [id number] 10:04:00 10:04:00 t Kingsley Kingsley FP Complete [place] - Drive [facility] l Medicine Outpati ent Clinics 2018-04-11 2018-04-11 [facility] [id number] 09:45:00 09:45:00 t Kingsley Kingsley [place] s - Drive [facility] Medicine Outpati ent Clinics 2018 2018 [facility] [id number] 08:30:00 08:30:00 t Kingsley Kingsley FP Complete [place] s - Drive [facility] l Medicine Outpati ent Clinics 2017-10-02 2017-10-02 [facility] [id number] 09:00:00 09:00:00 t Kingsley Kingsley FP Complete [place] s - Drive [facility] l Medicine Outpati ent Clinics 2017-07-19 2017-07-19 [facility] [id number] 09:00:00 09:00:00 t Kingsley Kingsley Live[place] - Drive [facility] Medicine Outpati ent Clinics Results This patient has no known results.
[2020-08-19 01:38] LABS: Urine Blood Negative (Negative); Urine Glucose Negative (Negative); Urine Protein 2+ (Negative); Urine Specific Gravity 1.025 (1.005-1.030); Urine pH 5.5 (5.0-7.0)
[2020-08-19 01:55] LABS: Absolute Lymphocytes (CBC) 1.7 K/uL (0.7-4.9); Basophils % 0.7 % (0-1.3); Hematocrit 45.5 % (36.0-45.0); Lymphocytes % 23.2 % (15.3-44.8); MPV 8.2 fL (7.6-11.3); RBC Red Blood Cell Count 4.65 M/uL (3.86-4.86)
[2020-08-19 02:06] LABS: Albumin 4.4 g/dL (3.4-5.0); Bilirubin Direct 0.2 mg/dL (0-0.2); Bilirubin Total 0.9 mg/dL (0.2-1.0); Potassium 3.9 mmol/L (3.5-5.1); Protein, Total 8.2 g/dL (6.4-8.2)
[2020-08-19] MEDS ORDERED: ONDANSETRON 4 MG/2 ML VIAL ONE (03:32)
[2020-08-19] MEDS ORDERED: MORPHINE 4 MG/ML SYR ONE (03:32)
--- NOTE | 2020-08-19 04:19 | ER ---
Nurse's Notes [facility] Name: Elisabeth Law Age: 70 yrs Sex: Female : 1950 Arrival Date: 08/19/2020 Time: 00:51 Bed 19 Private MD: Diagnosis: right inguinal lymphadenitis;RLQ abdominal pain Presentation: 08/19 00:55 Coronavirus screen: Client denies travel out of the [place] in the last 14 days. Ebola jm8 Screen: Patient negative for fever greater than or equal to 101.5 degrees Fahrenheit, and additional compatible Ebola Virus Disease symptoms Patient denies exposure to infectious person. Patient denies travel to an Ebola-affected area in the 21 days before illness onset. Initial Sepsis Screen: Does the patient meet any 2 criteria? No. Patient's initial sepsis screen is negative. Does the patient have a suspected source of infection? No. Patient's initial sepsis screen is negative. Risk Assessment: Do you want to hurt yourself or someone else? Patient reports no desire to harm self or others. Onset of symptoms was August 18, 2020 at 15:00. 00:55 Method Of Arrival: EMS: [facility] 8 00:55 Acuity: SHANA 3 jm8 00:57 Chief complaint: EMS states: patient has been complaining of abdominal pain and jm8 diarrhea since yesterday at 3 pm. Triage Assessment: 00:59 General: Appears in no apparent distress. comfortable, Behavior is calm, cooperative, jm8 appropriate for age. Pain: Complains of pain in abdomen Pain currently is 10 out of 10 on a pain scale. Pain began 1 day ago. EENT: No deficits noted. No signs and/or symptoms were reported regarding the EENT system. Neuro: No deficits noted. Level of Consciousness is awake, alert, obeys commands, Oriented to person, place, time. Cardiovascular: No deficits noted. Respiratory: No deficits noted. Airway is patent Trachea midline Respiratory effort is even, unlabored, Respiratory pattern is regular, symmetrical. GI: Reports lower abdominal pain, upper abdominal pain, diarrhea. : No deficits noted. No signs and/or symptoms were reported regarding the genitourinary system. Derm: No deficits noted. No signs and/or symptoms reported regarding the dermatologic system. Musculoskeletal: No deficits noted. No signs and/or symptoms reported regarding the musculoskeletal system. Historical: - Allergies: 00:56 Codeine; jm8 - Home Meds: 00:56 Amlodipine Besylate 10mg 0.5 tab daily [Active]; carvedilol 12.5 mg Oral tab [Active]; jm8 Ecotrin 81 mg Oral 1 tab once daily [Active]; carbidopa-levodopa 25-100 mg Oral tab 1 tab 3 times per day [Active]; Nature Made D3 25mcg (1000 UI) daily [Active]; clopidogrel 75 mg Oral tab 1 tab once daily [Active]; furosemide 20 mg Oral tab 1 tab once daily [Active]; Ranexa 500 mg Oral Tb12 1 tab 2 times per day [Active]; simvastatin 10 mg Oral tab 1 tab once daily [Active]; - PMHx: 00:56 Hypertension; Irritable bowel syndrome; Osteoporosis; Pancreatitis; renal jm8 insufficiency; Fabián disease; CAD; Chronic pain; Diabetes - NIDDM; Diverticulitis; Hyperlipidemia; - PSHx: 00:56 Cholecystectomy; colon resection; neck surgery; hysterectomy; jm8 - Immunization history:: Adult Immunizations up to date, Client reports receiving the 2nd dose of the Covid vaccine. - Social history:: Smoking status: Patient denies any tobacco usage or history of. Screenin:58 Abuse screen: Denies threats or abuse. Denies injuries from another. Nutritional [facility] screening: No deficits noted. Tuberculosis screening: No symptoms or risk factors identified. Fall Risk None identified. Vital Signs: 00:55 BP 185 / 63; Pulse 101; Resp 16; Temp 98; Pulse Ox 100% ; Weight 65.77 kg; Height 4 ft. jm8 11 in. (149.86 cm); Pain 10/10; 03:15 BP 169 / 69; Pulse 95; Resp 16; Pulse Ox 96% on R/A; 8 04:27 BP 152 / 58; Pulse 88; Resp 16; Pulse Ox 99% on R/A; 8 00:55 Body Mass Index 29.29 (65.77 kg, 149.86 cm) jm8 ED Course: 00:51 Patient arrived in ED. 00:56 Triage completed. 8 00:56 Arm band placed on right wrist. 8 00:58 Patient has correct armband on for positive identification. Bed in low position. Call [facility] light in reach. Side rails up X2. Adult w/ patient. 01:00 Inserted saline lock: 20 gauge in right forearm, using aseptic technique. jm8 01:31 Lobo Howard MD is Attending Physician. ps1 02:57 CT Abd/Pelvis - IV Contrast Only In Process Unspecified. EDMS 04:17 Gm Martinez MD is Referral Physician. ps1 04:27 No provider procedures requiring assistance completed. IV discontinued, intact. jm8 Administered Medications: 03:15 Drug: morphine 4 mg Route: IVP; Site: right antecubital; jm8 04:27 Follow up: Response: No adverse reaction jm8 03:15 Drug: Zofran (Ondansetron) 4 mg Route: IVP; Site: right antecubital; jm8 04:27 Follow up: Response: No adverse reaction jm8 04:17 Drug: HYDROcodone-acetaminophen 5 mg-325 mg 1 tabs Route: PO; ak2 04:27 Follow up: Response: No adverse reaction jm8 Outcome: 04:19 Discharge ordered by MD. ps1 04:28 Discharged to home ambulatory, with family. jm8 04:28 Condition: good 04:28 Discharge instructions given to patient, family, Instructed on discharge instructions, follow up and referral plans. medication usage, Demonstrated understanding of instructions, follow-up care, medications. 04:28 Patient left the ED. jm8 Signatures: Dispatcher [employer] EDKY Lobo Howard MD MD ps1 Onel Prasad RN RN jm8 Lauri Evangelista ak2 Corrections: (The following items were deleted from the chart) 00:58 00:55 Chief complaint: jmAlia schulte 00:59 00:58 Patient has correct armband on for positive identification. jmAlia jm8
--- NOTE | 2020-08-19 04:19 | EDPHYS ---
Physician Documentation [facility] Name: Elisabeth Law Age: 70 yrs Sex: Female : 1950 Arrival Date: 08/19/2020 Time: 00:51 Bed 19 Private MD: ED Physician Lobo Howard HPI: 08/19 04:11 This 70 yrs old Female presents to ER via EMS with complaints of Abdominal ps1 Pain. 04:11 pain onset over a week ago. Pain localized R>L lower abdomen and into the groin. ps1 Patient rates the pain as severe and fluctuating. Points to the inguinal area. Patient was seen and evaluated for same complaint a week ago in ED. CT negative and labs unremarkable. Sent to GI for further evaluation. Had a tele visit and was prescribed Carafate, Augmentin, and Flagyl for reported "possible diverticulitis". Patient denies bloody stools, fever, and now has diarrhea since starting the medications. . Historical: - Allergies: 00:56 Codeine; jm8 - Home Meds: 00:56 Amlodipine Besylate 10mg 0.5 tab daily [Active]; carvedilol 12.5 mg Oral tab [Active]; jm8 Ecotrin 81 mg Oral 1 tab once daily [Active]; carbidopa-levodopa 25-100 mg Oral tab 1 tab 3 times per day [Active]; Nature Made D3 25mcg (1000 UI) daily [Active]; clopidogrel 75 mg Oral tab 1 tab once daily [Active]; furosemide 20 mg Oral tab 1 tab once daily [Active]; Ranexa 500 mg Oral Tb12 1 tab 2 times per day [Active]; simvastatin 10 mg Oral tab 1 tab once daily [Active]; - PMHx: 00:56 Hypertension; Irritable bowel syndrome; Osteoporosis; Pancreatitis; renal jm8 insufficiency; Fabián disease; CAD; Chronic pain; Diabetes - NIDDM; Diverticulitis; Hyperlipidemia; - PSHx: 00:56 Cholecystectomy; colon resection; neck surgery; hysterectomy; jm8 - Immunization history:: Adult Immunizations up to date, Client reports receiving the 2nd dose of the Covid vaccine. - Social history:: Smoking status: Patient denies any tobacco usage or history of. ROS: 04:11 Constitutional: Negative for fever, chills, and weight loss, Eyes: Negative for injury, ps1 pain, redness, and discharge, Cardiovascular: Negative for chest pain, palpitations, and edema, Respiratory: Negative for shortness of breath, cough, wheezing, and pleuritic chest pain, MS/Extremity: Negative for injury and deformity, Skin: Negative for injury, rash, and discoloration, Neuro: Negative for headache, weakness, numbness, tingling, and seizure. 04:11 Abdomen/GI: Positive for abdominal pain. Exam: 04:11 Constitutional: This is a well developed, well nourished patient who is awake, alert, ps1 and in no acute distress. Head/Face: Normocephalic, atraumatic. Eyes: Pupils equal round and reactive to light, extra-ocular motions intact. Lids and lashes normal. Conjunctiva and sclera are non-icteric and not injected. Cardiovascular: Regular rate and rhythm. No gallops, murmurs, or rubs. Normal PMI, no JVD. No pulse deficits. Respiratory: Lungs have equal breath sounds bilaterally, clear to auscultation and percussion. No rales, rhonchi or wheezes noted. No increased work of breathing, no retractions or nasal flaring. Skin: Warm, dry with normal turgor. Normal color with no rashes, no lesions, and no evidence of cellulitis. MS/ Extremity: Pulses equal, no cyanosis. Neurovascular intact. Full, normal range of motion. Neuro: Awake and alert, GCS 15, oriented to person, place, time, and situation. Cranial nerves II-XII grossly intact. Sensory grossly intact. 04:11 Abdomen/GI: Inspection: prominent lymph node in right inguinal area, Bowel sounds: normal, Palpation: abdomen is soft and non-tender, in all quadrants, Hernia: not appreciated. Vital Signs: 00:55 BP 185 / 63; Pulse 101; Resp 16; Temp 98; Pulse Ox 100% ; Weight 65.77 kg; Height 4 ft. jm8 11 in. (149.86 cm); Pain 10/10; 03:15 BP 169 / 69; Pulse 95; Resp 16; Pulse Ox 96% on R/A; jm8 04:27 BP 152 / 58; Pulse 88; Resp 16; Pulse Ox 99% on R/A; jm8 00:55 Body Mass Index 29.29 (65.77 kg, 149.86 cm) jm8 MDM: 02:51 Patient medically screened. ps1 04:11 Differential diagnosis: appendicitis, bowel obstruction, gastritis, non-specific abd ps1 pain, pancreatitis, Peptic Ulcer Disease, Ureterolithiasis, urinary tract infection, lymphadenitis, hernia, diverticulitis. Data reviewed: vital signs, nurses notes, lab test result(s), radiologic studies, and as a result, I will discharge patient. Counseling: I had a detailed discussion with the patient and/or guardian regarding: the historical points, exam findings, and any diagnostic results supporting the discharge/admit diagnosis, lab results, radiology results, the need for outpatient follow up, a teller, an speech language pathologist travel, to return to the emergency department if symptoms worsen or persist or if there are any questions or concerns that arise at home. Special discussion: Based on the patient's Hx, exam, and Dx evaluation, there is no indication for emergent surgery or inpatient Tx. It is understood by the patient/guardian that if the Sx's persist or worsen they need to return immediately for re-evaluation. Based on the history and exam findings, there is no indication for further emergent testing or inpatient evaluation. I discussed with the patient/guardian the need to see the teller for further evaluation of the symptoms. 08/19 01:28 Order name: Basic Metabolic Panel [facility] 08/19 01:28 Order name: CBC with Diff; Complete Time: 02:22 [facility] 08/19 01:28 Order name: Hepatic Function; Complete Time: 02:22 [facility] 08/19 01:28 Order name: Lipase; Complete Time: 02:22 [facility] 08/19 01:28 Order name: Basic Metabolic Panel; Complete Time: 02:22 [facility] 08/19 01:36 Order name: Urine Dipstick-Ancillary; Complete Time: 02:22 [facility] 08/19 01:28 Order name: IV Saline Lock; Complete Time: 01:28 [facility] 08/19 01:28 Order name: Labs collected and sent; Complete Time: 01:28 [facility] 08/19 01:30 Order name: Urine Dipstick-Ancillary (obtain specimen); Complete Time: 01:37 [facility] 08/19 02:22 Order name: CT Abd/Pelvis - IV Contrast Only ps1 Administered Medications: 03:15 Drug: morphine 4 mg Route: IVP; Site: right antecubital; jm8 04:27 Follow up: Response: No adverse reaction jm8 03:15 Drug: Zofran (Ondansetron) 4 mg Route: IVP; Site: right antecubital; jm8 04:27 Follow up: Response: No adverse reaction jm8 04:17 Drug: HYDROcodone-acetaminophen 5 mg-325 mg 1 tabs Route: PO; ak2 04:27 Follow up: Response: No adverse reaction jm8 Disposition Summary: 08/19/20 04:19 Discharge Ordered Location: Home ps1 Problem: an ongoing problem ps1 Symptoms: have improved ps1 Condition: Stable ps1 Diagnosis - right inguinal lymphadenitis ps1 - RLQ abdominal pain ps1 Followup: ps1 - With: Gm Martinez MD - When: 48 Hours - Reason: Further diagnostic work-up, Recheck today's complaints, Continuance of care, Re-evaluation by your physician Followup: ps1 - With: Private Physician - When: As needed - Reason: Further diagnostic work-up, Recheck today's complaints, Re-evaluation by your physician Followup: ps1 - With: Emergency Department - When: As needed - Reason: Fever > 102 F, Trouble breathing, Worsening of condition Discharge Instructions: - Discharge Summary Sheet ps1 - Lymphangitis, Adult ps1 Forms: - Medication Reconciliation Form ps1 - Thank You Letter ps1 - Antibiotic Education ps1 - Prescription Opioid Use ps1 Signatures: Dispatcher [employer] Lobo Cotton MD MD ps1 Onel Prasad RN RN jm8 aLuri Evangelista2
[2020-08-19] MEDS ORDERED: HYDROCODONE/APAP 5/325 MG TAB ONE (04:35)
[2020-08-19 04:36] VITALS: TEMP 98
[2020-08-19 04:40] VITALS: BP 152/58; O2SAT 99
--- NOTE | 2020-08-19 11:52 | RAD REPORT ---
EXAM DESCRIPTION: CTAbdomen Pelvis W Contrast - 08/19/2020 6:34 am CLINICAL HISTORY: The patient is 70 years old and is Female; RLQ abdominal pain / inguinal pain pos hernia TECHNIQUE: Axial computed tomography images of the abdomen and pelvis with intravenous contrast. S agittal and coronal reformatted images were created and reviewed. This CT exam was performed using one or more of the following dose reduction techniques: automated exposure control, adjustment of t he mA and/or kV according to patient size, and/or use of iterative reconstruction technique. COMPARISON: CT abdomen and pelvis August 16, 2019 FINDINGS: Lung bases: Unremarkable. No mass. No consolidation. ABDOMEN: Liver: Unremarkable. No mass. Gallbladder and bile ducts: Gallbladder is surgically absent. No ductal dilation. Pancreas: Unremarkable. No mass. No ductal dilation. Spleen: Unremarkable. No splenomegaly. Adrenals: Unremarkable. No mass. Kidneys and ureters: Simple cysts in the kidneys bilaterally. ACR White Paper guidelines (Herjony, et al. JACR 2018; 15(2):264-273) suggest no follow-up is necessary. No hydronephrosis. Stomach and bowel: Postsurgical changes in the distal colon. No obstruction. No mucosal thickening. PELVIS: Appendix: No findings to suggest acute appendicitis. Bladder: Unremarkable. No mass. Reproductive: Uterus is not seen. ABDOMEN and PELVIS: Intraperitoneal space: Unremarkable. No free air. No significant fluid collection. Bones/joints: Disc space narrowing with degenerative endplate changes most prominent at L3-L4. Anterior osteophytosis in the lower thoracic spine. No acute fracture. No dislocation. Soft tissues: Unremarkable. Vasculature: Scattered atherosclerotic vascular calcifications causing narrowing of the mesenter ic and renal arteries. No abdominal aortic aneurysm. Lymph nodes: Unremarkable. No enlarged lymph nodes. IMPRESSION: No acute findings in the abdomen or pelvis. Electronically signed by: Sriram Hardy MD 08/19/2020 3:32 AM CDT Due to temporary technical issues with the PACS/Fluency reporting system, reports are being signed by the in house radiologist without review as a courtesy to ensure prompt reporting. The interpreting r adiologist is fully responsible for the content of the report.
== END 2020-08-19 04:28 | disposition home or self-care (01) ==
LOC: ER 00:47
DX: L04.1 Acute lymphadenitis of trunk (principal); I10 Essential (primary) hypertension; E11.9 Type 2 diabetes mellitus without complications; Z88.5 Allergy status to narcotic agent
CPT/HCPCS: 85025; 80048; 36415; 80076; 81003; 83690; 74177; 96375; 96374; 99284; Q9967; J2405

== ENCOUNTER 2020-10-25 19:50 | Emergency (ER) | payer OTHER | END 2020-10-25 20:41 | disposition left against medical advice (07) | LOC: ER 19:50 | DX: Z02.9 Encounter for administrative examinations, unspecified (principal) ==

== ENCOUNTER 2021-01-18 13:08 | Emergency (ER) | payer OTHER ==
--- OUTSIDE RECORDS SUMMARY | 2021-01-18 13:11 | XMS REPORT | Continuity of Care Document ---
:1950 Author Organization [facility] t Address [address] [place] [address] Care Team Providers Name Role Phone Tracy HERMAN, F Attending Clinician MCCULLOUGH Attending Clinician Unavailable MCCULLOUGH Admitting Clinician Unavailable Payers Payer Name Policy Type Policy Number Effective Date Expiration Date S renetta MEDICARE PART A [id number] 2013 \T\ B 00:00:00 Problems Condition Condition Condition Status Onset Resolution Last Treating Co mments Source Name Details Category Date Date Treatment Clinician Date Chronic Chronic Disease Active Univers low back low back ity of pain pain [facility] Allergies, Adverse Reactions, Alerts Allergy Allergy Status Severity Reaction(s) Onset Inactive Treating Comm ents Source Name Type Date Date Clinician Tramadol Propensi Active Nausea Univer s ty to and/or -04 ity of adverse Vomiting 00:00: [place] reaction 00 Medical s to Branch drug TRAMADOL DRUG Active Med N/V Univers INGREDI 1-04 ity of 00:00: [place] 00 Medical Branch Codeine Propensi Active Nausea Univers ty to and/or 08-16 ity of adverse Vomiting 00:00: [place] reaction 00 Medical s Branch CODEINE DRUG Active N/V Univers INGREDI 08-16 ity of 00:00: [place] 00 Medical Branch codeine Adverse Active Info Not [facility] Reaction Available [facility] Social History Social Habit Start Date Stop Date Quantity Comments Source Exposure to Not sure [facility] SARS-CoV-2 [facility] (event) Branch Tobacco use and 2020-08-19 2020-08-19 Never used Universit y of exposure 00:00:00 00:00:[address] [facility] Alcohol intake 2020-08-19 2020-08-19 Current [facility] 00:00:00 00:00:00 non-drinker of [facility] alcohol Branch (finding) Sex Assigned At [birth year] Universit y of 00:00:00 00:00:[address] [facility] Smoking Status Start Date Stop Date Source Never smoker [facility] Medications Ordered Filled Start Stop Current Ordering Indication Dosage Frequency Signature Comments Components Source Medication Medication Date Date Medication? Clinician (SIG) Name Name dicyclomine 2020- No 20mg 20 mg, Uni vers (BENTYL) 08-20 Intramuscu ity of injection 00:45: 23:50 [place]CE[place] 20 mg 00 :00 1 dose, Medical Maxine Branch 08/19/20 at 1945, Routine dicyclomine 2020- No [id number] 20mg Take 1 Univers 20 mg 08-19 tablet by ity of tablet 00:00: 04:59 mouth 4 [place] 00 :00 (four) Medical times Branch daily for 7 days. Rosuvastati Rosuvastati Yes Domenic [address] n Calcium n Calcium 3-11 Delgado [facility] - 00:00: [facility] Ondansetron Ondansetron Yes Domenic [address] HCl HCl 9-04 [facility] - 00:[facility]: [facility] rosuvastati Yes 10mg Take 10 mg Univers n (CRESTOR) 1-08 by mouth ity of 10 mg 16:46: at [place] [address] bedtime. Medical Branch clopidogrel Yes 75mg Take 75 mg Univers (PLAVIX) 75 1-08 by mouth ity of mg tablet 16:46: daily. [place] [address] Medical Branch ranolazine 2015- Yes 500mg Take 500 Un nhan (RANEXA) 1-08 mg by ity of 500 mg 12 16:46: mouth 2 [place] hr tablet 47 (two) Medical times Branch daily. carvedilol Yes 12.5mg Take 12.5 Univers (COREG) 1-08 mg by ity of 12.5 mg 16:46: mouth 2 [place] tablet 47 (two) Medical times Branch daily with meals. GLIMEPIRIDE Yes 1mg Take 1 mg U nivers ORAL 1-08 by mouth ity of 16:46: at [place] [address] bedtime. Medical Branch Amlodipine- Yes 1{tbl} Take 1 Tab Univers Olmesartan 1-08 by mouth ity o f (CONNIE) 5-40 16:46: [place] mg [facility] Medical Branch Probiotic Probiotic Yes Domenic as [facility] [...] l Outpati ent Clinics Amlodipine Amlodipine Yes Doemnic [address] [facility] [address] Besylate Besylate [facility] Vitamin D3 Vitamin D3 Yes Domenic [address] [facility]gado [facility] Aspir-81 Aspir-81 Yes Domenic [address] [facility] Carbidopa-L Carbidopa-L Yes Domenic not [facility] evodopa CR evodopa CR Delgado defined [facility] Magnesium Magnesium Yes Domenic [address] [facility] [facility] Delgado with a [facility] - meal [facility] Pantoprazol Pantoprazol Yes Domenic [address] e Sodium e Sodium [facility] Simvastatin Simvastatin Yes Domenic [address] Delgado in the [facility] - evening [facility]ics Prolia Prolia Yes Domenic as [facility] Delgado directed [facility] Amlodipine Amlodipine Yes Domenic TAKE [address] [facility] Besylate Besylate Delgado TABLET BY L ukes - MOUTH Memoria EVERY DAY [facility] ent [facility] Carvedilol Carvedilol Yes Domenic [address] [facility] Delgado ORALLY 30 [facility] - DAYS [facility] Simvastatin Simvastatin Yes Domenic [address] Delgado in the [facility] - evening [facility] Immunizations Ordered Filled Immunization Date Status Comments Sour e Immunization Name Name Afluria single dose Afluria single dose 2018-12-[address] [facility] 00:[facility] [facility] Outpatient [facility] Prevnar 13 Prevnar 13 2018-05-[address] [facility] - -Pneumonia Vaccine -Pneumonia Vaccine 00:00:[address] [facility] Vital Signs Vital Name Observation Time Observation Value Comments Source Systolic blood 2020-08-19 23:00:00 184 mm[Hg] Univer sity of pressure [facility] Diastolic blood 2020-08-19 23:00:00 62 mm[Hg] [facility] Heart rate 2020-08-19 23:00:00 93 /min [facility] Respiratory rate 2020-08-19 23:00:00 19 /min [facility] Body temperature 2020-08-19 22:53:[address] [facility] Body weight 2020-08-19 22:53:00 76.658 kg [facility] BMI 2020-08-19 22:53:00 34.13 kg/m2 [facility] Medical Branch Oxygen saturation in 2020-08-19 22:53:00 99 /min University Arterial blood by [facility] Pulse oximetry Branch Procedures Procedure Date / Time Performed Performing Clinician Sour e NOTICE OF PRIVACY 2020-08-19 22:45:09 Doctor Unassigned, No Univ ersity [facility] Name Medical Branch NOTICE OF PRIVACY 2020-08-19 22:42:29 Doctor Unassigned, No Univ ersity [facility] Name Medical Branch CONSENT/REFUSAL FOR 2020-08-19 22:41:47 [facility] AND Name Medical Branch TREATMENT Encounters Start End Encounter Admission Attending Care Care Encounter Source Date/Time Date/Time Type Type Clinicians Facility Department ID 2021-01-05 2021-01-05 ambulatory [facility] [id number] [facility] 2021-01-03 2021-01-03 ambulatory [facility] [id number] [facility] 2020-12-27 2020-12-27 ambulatory [facility] [id number] [facility] 2020-10-18 2020-10-18 Outpatient [facility] [id number] [facility] 2020-08-25 2020-08-25 Outpatient [facility] [id number] [facility] 2020-08-25 2020-08-25 Outpatient [facility] [id number] [facility] 2020-08-19 2020-08-19 Emergency Tracy [facility] [id number] [facility] 17:58:00 19:27:00 Lazarus Lund [id number] [place] [id number] [facility] [id number] [place] [address] Branch 2020-08-19 2020-08-19 Emergency X [facility] ERT [id number] Univers 17:40:00 17:40:00 ity [facility] 2020-08-19 2020-08-19 Outpatient [facility]ML[facility] [id number] [facility] 2020-08-16 2020-08-16 Outpatient [facility] [id number] [facility] 2020-04-14 2020-04-14 Outpatient [facility] [id number] [facility] 2020-03-01 2020-03-01 Outpatient [facility] [id number] [facility] 2020-02-26 2020-02-26 Outpatient [facility] [id number] [facility] 2020-02-23 2020-02-23 Outpatient [facility] [id number] [facility] 2020-02-10 2020-02-10 Outpatient [facility] [id number] [facility] 2020-02-03 2020-02-03 Outpatient [facility] [id number] [facility] 2020-01-15 2020-01-15 Outpatient [facility] [id number] [facility] 2020-01-12 2020-01-12 Outpatient [facility] [id number] [facility] 2019-12-25 2019-12-25 Outpatient [facility] [id number] [facility] 2019-12-23 2019-12-23 Outpatient [facility] [id number] [facility] 2019-10-16 2019-10-16 [facility] [id number] 09:30:00 09:30:00 t Baxter Baxter [employer] s - Drive [facility] Medicine Medicine Outpati ent Clinics 2019-08-01 2019-08-01 [facility] [id number] 09:50:00 09:50:00 t Baxter [employer] s - [employer] [facility] [place] Medicine Outpati ent Clinics 2019-07-17 2019-07-17 [facility] [id number] 10:00:00 10:00:00 t Baxter [employer] s - [employer] [facility] [place] Medicine Outpati ent Clinics 2019-07-11 2019-07-11 [facility] [id number] 13:24:00 13:24:00 t Baxter Baxter [employer] s - [employer] [facility] Medicine Outpati ent Clinics 2019-04-16 2019-04-16 [facility] [id number] 09:00:00 09:00:00 t Baxter [employer] s - [employer] [facility] [place] Medicine Outpati ent Clinics 2019-04-16 2019-04-16 [facility] [id number] 08:30:00 08:30:00 t Baxter [employer] s - [employer] [facility] [place] Medicine Outpati ent Clinics 2019-03-17 2019-03-17 [facility] [id number] 10:00:00 10:00:00 t Baxter [employer] s - [employer] [facility] [place] Medicine Outpati ent Clinics 2019-02-14 2019-02-16 Inpatient REBECCA MCCULLOUGH [facility] [id number] [place] 00:00:00 00:00:[address] 2019-01-23 2019-01-23 [facility] [id number] 11:21:00 11:21:[address] Luke s - Drive [facility] Medicine l Medicine Outpati ent Clinics 2019-01-09 2019-01-09 [facility] [id number] 08:15:00 08:15:[address] Luke s - Drive [facility] Medicine Outpati ent Clinics 2018-12-31 2018-12-31 [facility] [id number] 16:44:00 16:44:[address] Luke s - Drive [facility] Medicine l Medicine Outpati ent Clinics 2018-12-19 2018-12-19 [facility] [id number] 10:45:00 10:45:[address] Luke s - Drive [facility] Medicine Outpati ent Clinics 2018-10-28 2018-10-28 [facility] [id number] 09:30:00 09:30:[address] Luke s - [facility] [place] Medicine Outpati ent Clinics 2018-10-21 2018-10-21 [facility] [id number] 09:46:00 09:46:[address] Luke s - Drive [facility] Medicine Outpati ent Clinics 2018-10-09 2018-10-09 [facility] [id number] 14:15:00 14:15:[address] Luke s - [address] [facility] [place] Medicine Outpati ent Clinics 2018-10-09 2018-10-09 [facility] [id number] 08:30:00 08:30:[address] Luke s - Drive [facility] Medicine l Medicine Outpati ent Clinics 2018-07-19 2018-07-19 [facility] [id number] 10:04:00 10:04:[address] Luke s - Drive [facility] Medicine Outpati ent Clinics 2018-06-03 2018-06-03 [facility] [id number] 09:20:00 09:20:[address] Luke s - Drive [facility] Medicine l Medicine Outpati ent Clinics 2018-05-30 2018-05-30 [facility] [id number] 13:00:00 13:00:[address] [employer] s - Drive [facility] [place] Medicine Outpati ent Clinics 2018-05-01 2018-05-01 [facility] [id number] 09:15:00 09:15:00 t Baxter Baxter [employer] s - Drive [facility] [place] Medicine Outpati ent Clinics 2018-04-17 2018-04-17 [facility] [id number] 10:04:00 10:04:00 t Baxter Baxter [employer] s - Drive [facility] [place] Medicine Outpati ent Clinics 2018-04-11 2018-04-11 [facility] [id number] 09:45:00 09:45:00 t Baxter Baxter [employer] s - Drive [facility] [place] Medicine Outpati ent Clinics 2018 2018 [facility] [id number] 08:30:00 08:30:00 t Baxter Baxter [employer] s - Drive [facility] [place] Medicine Outpati ent Clinics 2017-10-02 2017-10-02 [facility] [id number] 09:00:00 09:00:00 t Baxter Baxter [employer] s - Drive [facility] [place] Medicine Outpati ent Clinics 2017-07-19 2017-07-19 [facility] [id number] 09:00:00 09:00:00 t Baxter [employer] s - Drive [facility] [place] Medicine Outpati ent Clinics Results This patient has no known results.
--- NOTE | 2021-01-18 14:46 | ER ---
Nurse's Notes [facility] Name: Elisabeth Law Age: 70 yrs Sex: Female : 1950 Arrival Date: 01/18/2021 Time: 13:16 Bed Waiting Private MD: Domenic Delgado Diagnosis: Presentation: 01/18 13:23 Chief complaint: Patient states: fell from standing positing and landed on rt hip. pt jh6 having rt hip and leg pain. Coronavirus screen: Vaccine status: Patient reports receiving the 2nd dose of the covid vaccine. Ebola Screen: No symptoms or risks identified at this time. Initial Sepsis Screen: Does the patient meet any 2 criteria? No. Patient's initial sepsis screen is negative. Does the patient have a suspected source of infection? No. Patient's initial sepsis screen is negative. Risk Assessment: Do you want to hurt yourself or someone else? Patient reports no desire to harm self or others. Onset of symptoms was January 18, 2021. 13:23 Method Of Arrival: EMS: [facility] 13:23 Acuity: SHANA 3 [facility] 13:23 Acuity: Unassigned [facility] Triage Assessment: 13:29 General: Appears in no apparent distress. Behavior is calm, cooperative. Pain: 6 Complains of pain in right iliac crest and right hip Pain radiates to right leg Pain currently is 5 out of 10 on a pain scale. Pain began suddenly, Is continuous, Aggravated by increased activity, repositioning, weight bearing. Historical: - Immunization history:: Adult Immunizations up to date, Client reports receiving the 2nd dose of the Covid vaccine. - Social history:: Smoking status: Patient denies any tobacco usage or history of. Vital Signs: 13:23 BP 106 / 84; Pulse 82; Resp 18; Temp 98.2(T); Pulse Ox 98% ; Weight 61.23 kg; Height 4 [facility] ft. 10 in. (147.32 cm); Pain 5/10; 13:23 Body Mass Index 28.21 (61.23 kg, 147.32 cm) [facility] ED Course: 13:16 Patient arrived in ED. as 13:16 Domenic Delgado DO is Private Physician. as 13:29 Triage completed. [facility] 13:30 Arm band placed on left wrist. jh6 Administered Medications: No medications were administered Outcome: 14:45 Patient left the ED. ss Signatures: Caridad Acuña Shelby, RN RN ss Sangeeta Saldana RN RN 6 Corrections: (The following items were deleted from the chart) 13: 13:29 PMHx: Irritable bowel syndrome; [place] [address] 13: 13:29 PMHx: Pancreatitis; [place] [address] 13: 13:29 PMHx: Osteoporosis; [place] [address] 13: 13:29 PMHx: Hypertension; [place] [address] 13: 13:29 PMHx: Hyperlipidemia; [place] [address] 13: 13:29 PMHx: Diverticulitis; [place] [address] 13: 13:29 PMHx: renal insufficiency; [place] [address] 13: 13:29 PMHx: Chronic pain; [place] [address] 13: 13:29 PMHx: Diabetes - NIDDM; [place] [address] 13: 13:29 PMHx: CAD; [place] [address] 13: 13:29 PMHx: Fabián disease; [place] [address] 13:29 13:29 PSHx: hysterectomy; [place] [address] 13:29 13:29 PSHx: colon resection; [place] [address] 13:29 13:29 PSHx: neck surgery; [place] [address] 13:29 13:29 PSHx: Cholecystectomy; [place] [address]
[2021-01-18 15:24] VITALS: BP 106/84; TEMP 98.2; O2SAT 98
== END 2021-01-18 14:45 | disposition left against medical advice (07) ==
LOC: ER 13:08
DX: Z53.21 Procedure and treatment not carried out due to patient leaving prior to being seen by health care provider (principal)
CPT/HCPCS: 99282

== ENCOUNTER 2023-11-01 05:03 | Inpatient (IN) | payer OTHER ==
[2023-11-01] MEDS ORDERED: KETOROLAC 30 MG/ML INJ ONE (05:39)
[2023-11-01] MEDS ORDERED: ONDANSETRON 4 MG/2 ML VIAL ONE (05:39)
[2023-11-01] MEDS ORDERED: FENTANYL CITR 100 MCG/2 ML ONE (05:40)
[2023-11-01] MEDS ORDERED: FAMOTIDINE 20 MG/2 ML VIAL IV ONE (05:41)
[2023-11-01] MEDS ORDERED: NA CHLORIDE 0.9% 1,000 ML ONE (05:41)
[2023-11-01] MEDS ORDERED: NA CHLORIDE 0.9% 500 ML ONE (05:41)
[2023-11-01 05:46] LABS: Absolute Basophils 0.1 K/uL (0-0.5); Absolute Lymphocytes (CBC) 0.6 K/uL (0.7-4.9); Absolute Monocytes 0.4 K/uL (0.1-1.3); Absolute Neutrophil 8.9 K/uL (1.8-8.0); Basophils % 0.6 % (0-1.3); Eosinophils % 0.1 % (0-4.4); Hematocrit 40.3 % (36.0-45.0); Hemoglobin 13.4 g/dL (12.0-15.0); Lymphocytes % 6.2 % (15.3-44.8); MCH 32.7 pg (27.0-35.0); MCHC 33.3 g/dL (32.0-36.0); MCV 98.2 fL (80-100); MPV 8.4 fL (7.6-11.3); Monocytes % 3.5 % (3.3-12.3); Neutrophils % 89.6 % (41.7-73.7); Platelets 162 thou/uL (152-406); Red Cell Distribution Width 14.5 % (12.1-15.2)
[2023-11-01 08:27] LABS: Specific Gravity 1.015 (1.005-1.030); Urine Bilirubin Negative (Negative); Urine Blood Negative (Negative); Urine Clarity Clear (Clear); Urine Color Yellow (Yellow); Urine Glucose 1+ (Negative); Urine Ketones Negative (Negative); Urine Nitrite Negative (Negative); Urine Protein Negative (Negative); Urine Urobilinogen 0.2 mg/dL (0.2-1.0)
[2023-11-01 08:31] LABS: Urine Microscopic Reflex YN NO UMIC
[2023-11-01 08:42] LABS: AST/SGOT 11 U/L (15-37); Albumin 3.2 g/dL (3.4-5.0); Albumin/Globulin Ratio 0.9 (1.1-1.8); Alkaline Phosphatase 37 U/L (45-117); BUN Blood Urea Nitrogen 22 mg/dL (7-18); Bicarbonate 26 mEq/L (21-32); Bilirubin Total 0.7 mg/dL (0.2-1.0); Globulin 3.4 g/dL (2.3-3.5); Glomerular Filtration Rate 64 ml/min (=/>90); Glucose Level 171 mg/dL (74-106); Lipase 18 U/L (13-75); Protein, Total 6.6 g/dL (6.4-8.2); Sodium Level 139 mEq/L (136-145)
[2023-11-01 08:46] LABS: ALT/SGPT < 14 U/L (13-56)
[2023-11-01 09:13] LABS: Blood Morphology Comment NOT SEEN (NOT SEEN); Platelet Estimate ADEQ; White Blood Cell Scan OK (OK)
--- NOTE | 2023-11-01 09:54 | RAD REPORT ---
EXAMINATION: CT ABDOMEN AND PELVIS WITH CONTRAST CLINICAL INDICATION: Female, 73 years old. Abdominal pain TECHNIQUE: CT abdomen and pelvis was performed, after the administration of 100 mL Isovue 300 intrave nously, as per department protocol. Axial, sagittal and coronal reconstructions were obtained. One or more of the following dose reduction techniques were used: Automated exposure control, adjustment of the mA and kV according to patient size, and iterative reconstruction. Unless otherwise specified, incidental findings do not require dedicated imaging follow-up. COMPARISON: 09/19/2023 CT abdomen and pelvis FINDINGS: LOWER CHEST: The visualized lung bases are clear. LIVER: Normal in size and contour. No focal lesion. BILIARY SYSTEM: Status post cholecystectomy. SPLEEN: Normal size. No focal lesion. PANCREAS: No mass, ductal dilation, or rylie-pancreatic fluid. ADRENALS: Normal; no mass. KIDNEYS: Normal size and contour. No hydronephrosis. Multiple renal cysts, largest at the right inter polar region measuring 5.2 cm, stable URINARY BLADDER: Unremarkable. GASTROINTESTINAL TRACT: No evidence of free air, bowel obstruction or abscess. Small volume pelvic f ree fluid along loops of nondistended fluid filled small bowel. Sequelae of partial colon resection with colorectal anastomosis again seen. APPENDIX: Normal appendix. LYMPH NODES: No lymphadenopathy. MUSCULOSKELETAL: No acute or suspicious osseous abnormality. ADDITIONAL FINDINGS: None. IMPRESSION: Small volume pelvic free fluid, among nondistended small bowel fluid-filled loops. The findings are n onspecific and could relate to enteritis or mild ileus. No other acute or concerning abnormalities seen in the abdomen or pelvis.
--- NOTE | 2023-11-01 10:13 | ER ---
Nurse's Notes [facility] Name: Elisabeth Law Age: 73 yrs Sex: Female : 1950 Arrival Date: 11/01/2023 Time: 05:03 Bed 14 Private MD: Diagnosis: Ileus, unspecified;Constipation, unspecified;Dehydration Presentation: 10/31 05:24 Chief complaint: Patient states: c/o generalized abdominal pain since 1900 yesterday al5 evening, has been experiencing also nausea and constipation. Coronavirus screen: At this time, the client does not indicate any symptoms associated with coronavirus-19. Ebola Screen: No symptoms or risks identified at this time. Initial Sepsis Screen: Does the patient meet any 2 criteria? No. Patient's initial sepsis screen is negative. Does the patient have a suspected source of infection? No. Patient's initial sepsis screen is negative. Risk Assessment: Do you want to hurt yourself or someone else? Patient reports no desire to harm self or others. Onset of symptoms was October 31, 2023. 05:24 Method Of Arrival: Ambulatory al5 05:24 Acuity: SHANA 3 al5 Triage Assessment: 05:29 General: Appears in no apparent distress. uncomfortable, Behavior is calm, cooperative. al5 Pain: Complains of pain in abdomen Pain currently is 8 out of 10 on a pain scale. EENT: No signs and/or symptoms were reported regarding the EENT system. Neuro: Level of Consciousness is awake, alert, obeys commands, Oriented to person, place, time, situation. Cardiovascular: Capillary refill < 3 seconds Patient's skin is warm and dry. Respiratory: Airway is patent Respiratory effort is even, unlabored, Respiratory pattern is regular, symmetrical. GI: Abdomen is round Stools are reported to be normal. constipated. Last BM was October 31, 2023. Reports lower abdominal pain, upper abdominal pain, constipation, nausea. : No signs and/or symptoms were reported regarding the genitourinary system. Derm: Skin is intact, Skin is pink, warm \\T\\ dry. normal. Musculoskeletal: No signs and/or symptoms reported regarding the musculoskeletal system. Historical: - Allergies: 05:26 Codeine; al5 05:26 Morphine; al5 - PMHx: 05:26 Parkinson's disease; Hypertensive disorder; Diabetes mellitus; al5 - PSHx: 05:26 colon resection; Cholecystectomy; al5 - Immunization history:: Adult Immunizations up to date. - Infectious Disease History:: Denies. - Social history:: Smoking status: Patient denies any tobacco usage or history of. - Family history:: not pertinent. Screenin:31 [facility] ED Fall Risk Assessment (Adult) History of falling in the last 3 months, al5 including since admission No falls in past 3 months (0 pts) Confusion or Disorientation No (0 pts) Intoxicated or Sedated No (0 pts) Impaired Gait Yes (1 pt) Mobility Assist Device Used Yes (1 pt) Altered Elimination No (0 pt) Score/Fall Risk Level 0 - 2 = Low Risk Oriented to surroundings, Maintained a safe environment, Hourly rounding (assess needs \\T\\ fall precautionary measures) done. Abuse screen: Denies threats or abuse. Denies injuries from another. Nutritional screening: No deficits noted. Tuberculosis screening: No symptoms or risk factors identified. Assessment: 05:31 Reassessment: see triage assessment. al5 05:32 GI: Bowel sounds present X 4 quads. Abdomen is tender to palpation X 4 quads. al5 07:43 General: Appears in no apparent distress. Behavior is calm, cooperative. Neuro: Level iw of Consciousness is awake, alert, obeys commands, Oriented to person, place, time, situation, Moves all extremities. Full function. Respiratory: Respiratory effort is even, unlabored, Respiratory pattern is regular. Derm: Skin is intact, is healthy with good turgor. Musculoskeletal: Range of motion: intact in all extremities. 08:22 Reassessment: Patient states feeling better. Patient states symptoms have improved. iw 09:30 Reassessment: Patient appears in no apparent distress at this time. Patient and/or iw family updated on plan of care and expected duration. Pain level reassessed. Patient is alert, oriented x 3, equal unlabored respirations, skin warm/dry/pink. Vital Signs: 05:24 BP 151 / 87; Pulse 86; Resp 18; Temp 97.9; Pulse Ox 100% on R/A; Weight 63.96 kg; al5 Height 4 ft. 11 in. ; Pain 8/10; 07:00 BP 164 / 56; Pulse 81; Resp 18 S; Pulse Ox 97% on R/A; br2 05:24 Body Mass Index 28.48 (63.96 kg, 149.86 cm) al5 05:24 Pain Scale: Adult al5 Meredith Coma Score: 06:29 Eye Response: spontaneous(4). Motor Response: obeys commands(6). Verbal Response: sp4 oriented(5). Total: 15. ED Course: 05:07 Patient arrived in ED. jj6 05:09 Dm Mckeon MD is Attending Physician. al5 05:26 Triage completed. al5 05:30 Arm band placed on right wrist. Patient placed in the treatment room, on a stretcher. al5 05:31 Patient has correct armband on for positive identification. Placed in gown. Bed in low al5 position. Call light in reach. Side rails up X2. Provided Education on: processes and procedures. 05:31 No provider procedures requiring assistance completed. al5 05:35 Inserted saline lock: 22 gauge in right hand, using aseptic technique. ,using aseptic br2 technique. THUMB Blood collected. Flushed with 10 mL NS Missed attempt(s): 20 gauge in left antecubital area. 05:51 CMP Sent. br2 05:51 Lipase Sent. br2 07:00 CMP Sent. br2 07:00 Lipase Sent. br2 07:05 Inserted saline lock: 20 gauge in right antecubital area, using aseptic technique. br2 07:25 Attending Physician role handed off by Dm Mckeon MD rn 07:25 Lance Peralta MD is Attending Physician. rn 07:43 Jackie Mac, REJI is Primary Nurse. iw 09:02 CT Abd/Pelvis - IV Contrast Only In Process Unspecified. EDMS 10:13 Sylvia Jerome MD is Hospitalizing Provider. rn 12:33 MIKE met with , her son and daughter in law at the bedside in the ED exam ane room. Patient identified by name and . Demographic sheet confirmed. Patient states she lives with her Melchor and daughter Rosi in a single story home. She reports that prior to admission, she performs all ADLs independently with use of a walker at all times. She also states she has a cane , a "completely handicapped equipped home", including wide doorways, occasional babysitter bars in the bedroom and bathroom. No HH, no home oxygen or other medical services at this time. Patient states MPOA is in place. Her preferred plan is to return home upon discharge and states Rosi will be her transportation home. CM team will continue to follow and coordinate care during this hospital stay. Administered Medications: 05:49 Drug: NS 0.9% IV 500 ml IV at bolus once Route: IV; Rate: bolus; Site: right hand; br2 05:49 Drug: Ketorolac IVP 15 mg IVP once Route: IVP; Site: right hand; br2 06:59 Follow up: Response: No adverse reaction br2 05:50 Drug: Famotidine IVP 20 mg IVP once; dilute with 10 mL 0.9% NaCl; give over 2 minutes br2 Route: IVP; Site: right hand; 06:59 Follow up: Response: No adverse reaction br2 05:50 Drug: Ondansetron IVP 4 mg IVP once; over 2 minutes Route: IVP; Site: right hand; br2 07:00 Follow up: Response: No adverse reaction br2 05:50 Drug: fentaNYL (PF) IVP 50 mcg IVP once Route: IVP; Site: right hand; br2 06:59 Follow up: Response: No adverse reaction; Pain is decreased br2 08:21 Drug: NS 0.9% IV 1000 ml IV at 125 ml/hr continuous Route: IV; Rate: 125 ml/hr; Site: iw right antecubital; Medication: 05:31 VIS not applicable for this client. al5 Outcome: 10:13 Decision to Hospitalize by Provider. rn 15:13 Patient left the ED. ph Signatures: Dispatcher [employer] EDJackie Gordillo RN RN iw Nieto, Roman, MD MD rn Hall, Patricia, RN RN ph Sangeeta Garcia6 Dm Mckeon MD MD sp4 Rosalba Madrid RN RN al5 Nicole Lopez RN RN br2 Jennifer Montejo RN RN ane
--- NOTE | 2023-11-01 10:13 | EDPHYS ---
Physician Documentation [facility] Name: Elisabeth Law Age: 73 yrs Sex: Female : 1950 Arrival Date: 11/01/2023 Time: 05:03 Bed 14 Private MD: ED Physician Lance Peralta HPI: 10/31 05:19 This 73 yrs old Female presents to ER via Unassigned with complaints of sp4 Abdominal Pain. 06:29 Patient presents with acute onset diffuse abdominal pain associated with nausea. sp4 History of partial colectomy, hypertension, diabetes, cholecystectomy, Parkinson's disease. Partial abdominal hysterectomy. Historical: - Allergies: 05: Codeine; al5 05:26 Morphine; al5 - PMHx: 05:26 Parkinson's disease; Hypertensive disorder; Diabetes mellitus; al5 - PSHx: 05:26 colon resection; Cholecystectomy; al5 - Immunization history:: Adult Immunizations up to date. - Infectious Disease History:: Denies. - Social history:: Smoking status: Patient denies any tobacco usage or history of. - Family history:: not pertinent. ROS: 06:29 Constitutional: Negative for fever, chills, and weight loss, positive diffuse abdominal sp4 pain and nausea 06:29 All other systems are negative, Exam: 06:29 Constitutional: This is a well developed, well nourished patient who is awake, alert, sp4 and in no acute distress. Head/Face: Normocephalic, atraumatic. Eyes: Pupils equal round and reactive to light, extra-ocular motions intact. Lids and lashes normal. Conjunctiva and sclera are not injected. Cornea within normal limits. Periorbital areas with no swelling, redness, or edema. ENT: Nares patent. No nasal discharge, no septal abnormalities noted. Tympanic membranes are normal and external auditory canals are clear. Oropharynx with no redness, swelling, or masses, exudates, or evidence of obstruction, uvula midline. Mucous membranes moist. Neck: Trachea midline, no thyromegaly or masses palpated, and no cervical lymphadenopathy. Supple, full range of motion without nuchal rigidity, or vertebral point tenderness. Chest/axilla: Normal chest wall appearance and motion. Nontender with no deformity. No lesions are appreciated. Cardiovascular: Regular rate and rhythm with a normal S1 and S2. No gallops, murmurs, or rubs. Normal PMI, no JVD. No pulse deficits. Respiratory: Lungs have equal breath sounds bilaterally, clear to auscultation and percussion. No rales, rhonchi or wheezes noted. No increased work of breathing, no retractions or nasal flaring. Abdomen/GI: Soft, with normal bowel sounds. No distension or tympany. No guarding or rebound. Significant diffuse abdominal tenderness without rebound Back: No spinal tenderness. No costovertebral tenderness. Skin: Warm, dry with normal turgor. Normal color with no rashes, no lesions, and no evidence of cellulitis. MS/ Extremity: Pulses equal, no cyanosis. Neurovascular intact. Full, normal range of motion. Neuro: Awake and alert, GCS 15, oriented to person, place, time, and situation. Cranial nerves II-XII grossly intact. Motor strength 5/5 in all extremities. Sensory grossly intact. Psych: Awake, alert, with orientation to person, place and time. Behavior, mood, and affect are within normal limits Vital Signs: 05:24 BP 151 / 87; Pulse 86; Resp 18; Temp 97.9; Pulse Ox 100% on R/A; Weight 63.96 kg; al5 Height 4 ft. 11 in. ; Pain 8/10; 07:00 BP 164 / 56; Pulse 81; Resp 18 S; Pulse Ox 97% on R/A; br2 05:24 Body Mass Index 28.48 (63.96 kg, 149.86 cm) al5 05:24 Pain Scale: Adult al5 Michie Coma Score: 06:29 Eye Response: spontaneous(4). Motor Response: obeys commands(6). Verbal Response: sp4 oriented(5). Total: 15. MDM: 06:31 Differential diagnosis: appendicitis, bowel obstruction, gastritis, gastroesophageal sp4 reflux disease, GI Bleed. Data reviewed: vital signs, nurses notes, lab test result(s), radiologic studies, CT scan. Consideration of Admission/Observation Escalation of care including admission/observation considered. Transition of care: After a detail discussion of the patient's case, care is transferred to Alex Larios MD. 06:40 Patient medically screened. sp4 07:10 Transition of care: After a detail discussion of the patient's case, care is sp4 transferred to Lance Peralta MD. 07:35 ED course: Signed out to me by previous attending, patient reports 8 months of rn abdominal pain. Has known biliary dilatation and sees Dr. Acuña for this. Dr. Acuña wanted colonoscopy prior to make sure nothing was wrong with intestine. GI does not want a scope until her account information clerk clears her and tells her she can come off of her Plavix. Abdominal pain feels like it has in the past just got worse last night so came in for pain control. No vomiting. Reports having bowel movements but slightly constipated. No blood in stool.. 10:12 Counseling: I had a detailed discussion with the patient and/or guardian regarding the rn historical points, exam findings, and any diagnostic results supporting the discharge/admit diagnosis, lab results, radiology results, the need for further work-up and treatment in the hospital. 10/31 05:20 Order name: CBC with Diff; Complete Time: 09:48 [facility] 10/31 05:20 Order name: CMP; Complete Time: 09:00 [facility] 10/31 05:20 Order name: Lipase; Complete Time: 09:00 [facility] 10/31 08:27 Order name: Urinalysis w/ reflexes; Complete Time: 09:00 [facility] 10/31 09:13 Order name: CBC Smear Scan; Complete Time: 09:48 [facility] 10/31 10:35 Order name: Basic Metabolic Panel [facility] 10/31 10:35 Order name: Basic Metabolic Panel [facility] 10/31 10:35 Order name: CBC with Automated Diff [facility] 10/31 10:35 Order name: CBC with Automated Diff [facility] 10/31 10:35 Order name: Lipase [facility] 10/31 10:35 Order name: Lipase [facility] 10/31 10:35 Order name: Liver (Hepatic) Function [facility] 10/31 10:35 Order name: Liver (Hepatic) Function [facility] 10/31 05:20 Order name: CT Abd/Pelvis - IV Contrast Only; Complete Time: 10:00 [facility] 10/31 10:35 Order name: Dr Amarjit Acuña [facility] 10/31 05:20 Order name: IV Saline Lock; Complete Time: 05:50 4 10/31 05:20 Order name: Labs collected and sent; Complete Time: 05:50 sp4 Administered Medications: 05:49 Drug: NS 0.9% IV 500 ml IV at bolus once Route: IV; Rate: bolus; Site: right hand; br2 05:49 Drug: Ketorolac IVP 15 mg IVP once Route: IVP; Site: right hand; br2 06:59 Follow up: Response: No adverse reaction br2 05:50 Drug: Famotidine IVP 20 mg IVP once; dilute with 10 mL 0.9% NaCl; give over 2 minutes br2 Route: IVP; Site: right hand; 06:59 Follow up: Response: No adverse reaction br2 05:50 Drug: Ondansetron IVP 4 mg IVP once; over 2 minutes Route: IVP; Site: right hand; br2 07:00 Follow up: Response: No adverse reaction br2 05:50 Drug: fentaNYL (PF) IVP 50 mcg IVP once Route: IVP; Site: right hand; br2 06:59 Follow up: Response: No adverse reaction; Pain is decreased br2 08:21 Drug: NS 0.9% IV 1000 ml IV at 125 ml/hr continuous Route: IV; Rate: 125 ml/hr; Site: iw right antecubital; Disposition Summary: 11/01/23 10:13 Hospitalization Ordered Notes: Hospitalization Status: Observation rn Provider: Sylvia Jerome rn Condition: Stable rn Problem: new rn Symptoms: are unchanged rn Bed/Room Type: Standard rn Location: Telemetry/MedSurg (observation)(11/01/23 14:32) bd Room Assignment: 204(11/01/23 14:32) bd Diagnosis - Ileus, unspecified rn - Constipation, unspecified rn - Dehydration rn Forms: - Medication Reconciliation Form rn - SBAR form rn - Leadership Thank You Letter rn Signatures: Dispatcher [employer] EDMS Keely Leger bd Jackie Mac RN RN iw Lance Peralta MD MD rn Potepalov, Sergey, MD MD sp4 Rosalba Madrid RN RN al5 Nicole Lopez RN RN br2 Corrections: (The following items were deleted from the chart) 08:36 05:20 Urinalysis+U.LAB.BRZ ordered. EDDE EDMS 11:39 10:13 Telemetry/MedSurg (observation) rn bd 11:39 10:13 rn bd 14:32 11:39 [facility] ER HOLD bd bd 14 11:39 ERHOLD- bd bd
--- NOTE | 2023-11-01 10:35 | P.HP ---
Certification for Inpatient Patient admitted to: Observation With expected LOS: <2 Midnights Patient will require the following post-hospital care: None Practitioner: I am a practitioner with admitting privileges, knowledge of patient current condition, hospital course, and medical plan of care. Services: Services provided to patient in accordance with Admission requirements found in Title 42 Section 412.3 of the Code of Federal Regulations <Regina Alarcon - Last Filed: 11/01/23 12:15> Patient History Date of Service: 11/01/23 Reason for admission: Intractable abdominal pain Home medications list reviewed: Yes - Past Medical/Surgical History Diabetic: Yes -: HTN -: Diabetes mellitus type 2 -: Hyperlipidemia -: Carotid arterial disease -: Diverticulosis -: GERD -: Chronic renal disease -: arthritis/chronic back pain -: Parkinsonian/dementia -: History of CVA -: osteoporosis/hip -: Chronic abdominal pain -: Hysterectomy -: Cholecystectomy -: Carotid endarterectomy bilaterally -: Partial colectomy Psychosocial/ Personal History: She is , has 4 children. She lives with her . She does not work. - Family History Father -: Heart disease, Cancer Mother -: GI disease, Diabetes Sister -: Cancer Brother -: Heart disease, Kidney disease - Social History Alcohol use: No CD- Drugs: No Caffeine use: Yes Place of Residence: Home <Regina Alarcon - Last Filed: 11/01/23 12:15> Date of Service: 11/02/23 <KevinericaSylvia lima Michael - Last Filed: 11/02/23 07:27> Allergies codeine Allergy (Severe, Verified 10/04/18 23:24) Anaphylaxis Home Medications: Ranolazine [Ranexa*] 500 mg PO BID 06/21/12 carvediloL [Coreg*] 25 mg PO BEDTIME 06/21/12 Clopidogrel Bisulfate [Plavix] 75 mg PO DAILY 04/11/13 Amlodipine [Norvasc*] 10 mg PO DAILY 10/04/18 Aspirin [Ecotrin 81 MG] 81 mg PO DAILY 10/04/18 Carbidopa/Levodopa 25-100 [Sinemet 25-100*] 1 tab PO DAILYPRN PRN 10/04/18 Amantadine [Symmetrel*] 100 mg PO DAILY 11/01/23 Cholecalciferol (Vitamin D3) [Vitamin D3] 25 mcg PO DAILY 11/01/23 Memantine HCl 10 mg PO DAILY 11/01/23 Pramipexole Di-HCl [Pramipexole Dihydrochloride] 0.5 mg PO BEDTIME 11/01/23 Rosuvastatin [Crestor] 10 mg PO DAILY 11/01/23 Ubidecarenone/Vit E Acet [Co Q-10 100 mg Softgel] 2 each PO DAILY 11/01/23 Review of Systems 10-point ROS is otherwise unremarkable General: Unremarkable Eyes: Unremarkable ENT: Unremarkable Respiratory: Unremarkable Cardiovascular: Unremarkable Gastrointestinal: Nausea, Abdominal Pain, Constipation Genitourinary: Unremarkable Musculoskeletal: Unremarkable Integumentary: Unremarkable Neurological: Unremarkable Lymphatics: Unremarkable <Regina Alarcon - Last Filed: 11/01/23 12:15> Physical Examination - Physical Exam General: Alert, In no apparent distress, Oriented x3 HEENT: Atraumatic, Normocephalic Neck: Supple Respiratory: Clear to auscultation bilaterally, Normal air movement Cardiovascular: Normal pulses, Regular rate/rhythm, Normal S1 S2 Capillary refill: <2 Seconds Gastrointestinal: Hypoactive, Tenderness (Right lower quadrant) Musculoskeletal: No clubbing Integumentary: No rashes Neurological: Normal speech, Normal tone, Normal affect Lymphatics: No axilla or inguinal lymphadenopathy External genitalia: Deferred Rectal: Deferred - Studies Laboratory Data (last 24 hrs) 11/01/23 11/01/23 08:16 05:30 WBC 10.00 Hgb 13.4 Hct 40.3 Plt Count 162 Sodium 139 Potassium 4.0 BUN 22 H Creatinine 0.93 Glucose 171 H Total Bilirubin 0.7 AST 11 L ALT < 14 Alkaline Phosphatase 37 L Lipase 18 <Regina Alarcon - Last Filed: 11/01/23 12:15> - Studies Laboratory Data (last 24 hrs) 11/01/23 11/01/23 08:16 05:30 WBC 10.00 Hgb 13.4 Hct 40.3 Plt Count 162 Sodium 139 Potassium 4.0 BUN 22 H Creatinine 0.93 Glucose 171 H Total Bilirubin 0.7 AST 11 L ALT < 14 Alkaline Phosphatase 37 L Lipase 18 <Sylvia Jerome - Last Filed: 11/02/23 07:27> Assessment and Plan - Plan Intractable abdominal pain Status post cholecystectomy, partial colectomy Consult Dr. Acuña, consult Dr. Martinez Gentle IVF Pain control Observe for infection Observe for bleeding Lactulose 20 g p.o. daily Protonix Teds Reconcile home meds and start as appropriate Past medical history: Arthritis, Parkinson's, CAD, HLD, multiple abdominal surgeries - Advance Directives Does patient have a Living Will: No Does patient have a Durable POA for Healthcare: No <Regina Alarcon Hermelindo - Last Filed: 11/01/23 12:15> Physician Review Additional Text: Pt seen and examined. I agree with the note by the CRISIS INTERVENTION SPECIALIST. Pt is a 73 yo female with past medical history of Parkinsons disease, Htn, and DM II who presents with abdominal pain. Of note, pt is waiting for a GI proedure pending Cardiac clearance. She had cholecystectomy many years ago. The abdominal pain progressively worsened and became associated with nausea. This made pt to come to the ER for evaluation. Lab studies show wbc 10, Hgb 13.4, K 4, Cr 0.93, glucose 171. CT abd shows mild ileus or enteritis. At bedside, pt is in NAD. A/P: Intractable abdominal pain: Will continue IVF, prn antiemetic and pain med. Keep pt NPO. Consulted Gen surgeon and GI. Status post cholecystectomy many years ago. CT abd shows mild ileus and enteritis. Pt has history of multiple abdominal surgeries. Arthritis: Continue prn pain med. Parkinson's disease: Continue home meds and supportive care. Hx of CAD: Continue home med HLD: Statin. DVT ppx: SCD Code: full <Sylvia Jerome - Last Filed: 11/02/23 07:27>
[2023-11-01] MEDS: SIMETHICONE 125 MG TAB PO SCH (11:00)
[2023-11-01] MEDS: NA CHLORIDE 0.9% 1,000 ML IV SCH (11:00)
[2023-11-01] MEDS ORDERED: SODIUM CHLORIDE 0.9% 10ML INJ IV PRN (12:19)
[2023-11-01] MEDS ORDERED: LACTULOSE 20 GM/30 ML UCUP ONE (13:13)
[2023-11-01 14:03] VITALS: BMI 28.5
--- NOTE | 2023-11-01 15:38 | CON ---
Date of Consultation: 11/01/2023 Reason For Service: Abdominal pain. History Of Present Illness: Ms. Law is a 73-year-old patient who came to us with abdominal pain , she describes at this time mainly in epigastric and upper abdomen. We had seen her before due to g eneralized abdominal pain, and in fact, she has been pending a GI workup by Dr. Martinez, but that bein g put on hold since it was requested a Cardiology evaluation first and she is about to have that done in the next few days. The pain is on and off. She does not know what triggers that last night. Wh at she knows is that it was epigastric, hurting. She feels better now, but she does not remember eat ing anything out of the usual. Denies any family member sick at home. Denies any dysuria, hematuria , hematochezia, or melena. Past Medical History: Includes diabetes, hypertension, hyperlipidemia, coronary artery disease, dive rticular disease, GERD, renal insufficiency, Parkinson's, dementia, history of CVA, osteoporosis. Past Surgical History: Includes carotid endarterectomy, partial colectomy, cholecystectomy, hysterec collins. Family History: Includes heart disease and diabetes. Social History: She does not smoke. She does not drink alcohol. Review of Systems: Nausea, abdominal pain, cramping. 10 points, otherwise, unremarkable. Physical Examination: Vital Signs: Reviewed. General: The patient is awake and alert. HEENT: Pupils are equal and reactive. Anicteric. Neck: Supple. Chest: Clear. Abdomen: Epigastric mild tenderness. No guarding or rebound. No peritoneal signs. Breasts: Deferred. Rectal: Deferred. Extremities: Good capillary refill. Laboratory Data: Blood work shows a WBC count of 10, hemoglobin of 13.4, and platelets of 162, potas sium is 4.0, creatinine is 0.93, total bilirubin of 0.7, lipase 18. CAT scan of the abdomen and pelv is interpreted by Dr. Troncoso as no evidence of free air, bowel obstruction or abscess in the small suly wel or pelvic free fluid and nondistended fluid-filled small bowel. No evidence of appendicitis. Th e findings are nonspecific, and as per radiologist, could be related to enteritis or mild ileus. Assessment: This is a 73-year-old patient with abdominal pain. CAT scan showed ileus of unknown catalina ology. The patient has been admitted for observation, IV hydration. We will continue doing serial a bdominal examination. We will follow the patient with you and give more recommendations as the case develops. CANDICE/LANA Voice ID: [id number] Report ID: [id number]
[2023-11-01] MEDS: CARBIDOPA/LEVODOPA 25/100 TAB PO SCH (21:00)
[2023-11-01] MEDS: ROSUVASTATIN 10 MG TAB PO SCH (21:00)
[2023-11-01] MEDS: PANTOPRAZOLE 40 MG INJ IVP SCH (21:00)
[2023-11-01] MEDS: PRAMIPEXOLE 0.25 MG TAB PO SCH (21:00)
[2023-11-01] MEDS: carvediloL 6.25 MG TAB PO SCH (21:00)
[2023-11-02 06:39] LABS: Absolute Eosinophils 0.1 K/uL (0-0.5); Absolute Lymphocytes (CBC) 1.9 K/uL (0.7-4.9); Absolute Monocytes 0.6 K/uL (0.1-1.3); Absolute Neutrophil 3.2 K/uL (1.8-8.0); Basophils % 0.8 % (0-1.3); Eosinophils % 1.8 % (0-4.4); Hematocrit 37.1 % (36.0-45.0); Hemoglobin 12.5 g/dL (12.0-15.0); Lymphocytes % 32.8 % (15.3-44.8); MCH 32.9 pg (27.0-35.0); MCHC 33.6 g/dL (32.0-36.0); MCV 97.9 fL (80-100); Monocytes % 9.8 % (3.3-12.3); Neutrophils % 54.8 % (41.7-73.7); Nucleated Red Blood Cells % 0.2 % (0-0); Platelets 166 thou/uL (152-406); RBC Red Blood Cell Count 3.79 M/uL (3.86-4.86); Red Cell Distribution Width 14.2 % (12.1-15.2)
[2023-11-02 07:01] LABS: AST/SGOT 15 U/L (15-37); Albumin/Globulin Ratio 0.9 (1.1-1.8); Alkaline Phosphatase 37 U/L (45-117); Anion Gap 7.7 mEq/L (5.0-15.0); BUN Blood Urea Nitrogen 12 mg/dL (7-18); Bicarbonate 24 mEq/L (21-32); Bilirubin Direct 0.2 mg/dL (0-0.2); Bilirubin Indirect, Calculated 0.8 mg/dL (0.2-0.8); Globulin 3.3 g/dL (2.3-3.5); Glomerular Filtration Rate 90 ml/min (=/>90); Glucose Level 98 mg/dL (74-106); Lipase 15 U/L (13-75); Potassium 3.7 mEq/L (3.5-5.1); Protein, Total 6.3 g/dL (6.4-8.2); Sodium Level 138 mEq/L (136-145)
[2023-11-02 07:02] LABS: ALT/SGPT < 14 U/L (13-56)
[2023-11-02] MEDS: AMANTADINE 100 MG CAP PO SCH (09:00)
[2023-11-02] MEDS: AMLODIPINE 10 MG TAB PO SCH (09:00)
--- NOTE | 2023-11-02 10:06 | P.PN ---
Subjective Date of Service: 11/02/23 Chief Complaint: Intractable abdominal pain Pt is resting comfortably in bed. Pt reports having a good night rest. She is NPO. Pt had BM yesterday. Waiting for Gen surgeon siria. Will f/u KUB. No other complaints. Review of Systems General: Unremarkable Eyes: Unremarkable ENT: Unremarkable Respiratory: Unremarkable Cardiovascular: Unremarkable Gastrointestinal: Abdominal Pain, Unremarkable Genitourinary: Unremarkable Musculoskeletal: Unremarkable Integumentary: Unremarkable Neurological: Unremarkable Lymphatics: Unremarkable Physical Examination - Vital Signs Temperature: 97.5 F Blood Pressure: 150/58 Pulse: 67 Respirations: 16 Pulse Ox (%): 99 - Physical Exam General: Alert, In no apparent distress, Oriented x3 HEENT: Atraumatic, Normocephalic, PERRLA Neck: Supple, 2+ carotid pulse no bruit, JVD not distended Respiratory: Clear to auscultation bilaterally, Normal air movement Cardiovascular: No edema, Normal pulses, Regular rate/rhythm Capillary refill: <2 Seconds Gastrointestinal: Normal bowel sounds, Soft and benign, Non-distended Musculoskeletal: No clubbing, No swelling, No contractures Integumentary: No rashes, No breakdown, No significant lesion, No tenderness/swelling Neurological: Normal gait, Normal speech, Normal strength at 5/5 x4 extr, Normal tone, Sensation intact, Cranial nerves 3-12 intact Lymphatics: No axilla or inguinal lymphadenopathy Assessment And Plan - Plan Intractable abdominal pain: Will continue IVF, prn antiemetic and pain med. Keep pt NPO. Consulted Gen surgeon and GI. Status post cholecystectomy many years ago. CT abd shows mild ileus and enteritis. Pt has history of multiple abdominal surgeries. Will f/u KUB. Arthritis: Continue prn pain med. Parkinson's disease: Continue home meds and supportive care. Hx of CAD: Continue home med HLD: Statin. DVT ppx: SCD Code: full Dispo: pending hospital course.
[2023-11-02] MEDS: METOCLOPRAMIDE 10 MG/2mL INJ IV SCH ×2 (11:00→22:45)
[2023-11-02] MEDS: MAGNESIUM CITRATE 300 ML BOT PO SCH ×2 (13:00→22:52)
--- NOTE | 2023-11-02 13:37 | RAD REPORT ---
EXAM: Single view of the abdomen HISTORY: Abdominal pain Findings: Unremarkable bowel gas pattern with moderate amount of stool within the colon Surgical clips right upper quadrant
[2023-11-02] MEDS: LACTULOSE 20 GM/30 ML UCUP PO PRN (15:37)
[2023-11-02] MEDS: GOLYTELY 4000 ML PO SCH ×2 (19:00→21:35)
--- NOTE | 2023-11-02 21:54 | PN ---
Date of Progress Note: 11/02/2023 Diagnosis: Abdominal pain of unknown origin. Subjective: This is a case of a 73-year-old patient who comes to us with abdominal pain. She stays it only happens occasionally. Yesterday, she had an attack. She could not sleep well the night befo re. Yesterday morning, the pain subsided. Today, the pain is in the lower abdomen, but it got too r again. The patient has imaging in that area showing a small amount of free fluid in the pelvis and some findings that could be consistent with enteritis of ileus, but it is hard to pinpoint at this m oment. Objective: Chest: Clear. Abdomen: Soft and depressible. No peritonitis and bowel sounds are positive. Extremities: Good capillary refill. Imaging: CAT scan reviewed with the patient, daughter, and . Laboratory Data: WBC count of 5.9 with hemoglobin of 12.5. UA is negative for blood or nitrite and chemistry shows creatinine is 0.9 and potassium is 4.0. Assessment And Plan: A 73-year-old patient, pain on and off. She is due for an endoscopy by the GI doctor, but as per patient have not done it yet because she still needs some cardiac clearance. If c ardiac workup is negative and she continues with the pain, we always have the option for a diagnostic laparoscopy. I discussed the pros and cons with them, although she is not ready to use that alterna tive at this moment. CANDICE/LANA Voice ID: [id number] Report ID: [id number]
[2023-11-02] MEDS: BISACODYL E.C. 5 MG TAB PO ONE (22:46)
--- NOTE | 2023-11-03 06:47 | RAD REPORT ---
EXAMINATION: ONE VIEW CHEST XR CLINICAL INDICATION: Female, 73 years old.preop TECHNIQUE: 1 View, AP supine, X-ray of the chest was performed. [id number]. COMPARISON: No prior exam. FINDINGS: Lungs and pleura: Clear lungs. No effusion. Heart and mediastinum: Normal heart size. Unremarkable mediastinal contours. Osseous structures: No acute abnormality. Tubes/lines: None Other: None. IMPRESSION: No acute intrathoracic abnormality.
--- NOTE | 2023-11-03 09:33 | P.PN ---
Subjective Date of Service: 11/03/23 Chief Complaint: Intractable abdominal pain Subjective: No new changes (Continued mild lower quadrant pain) <Regina Alarcon - Last Filed: 11/03/23 09:27> Date of Service: 11/03/23 <Sylvia Jerome C - Last Filed: 11/03/23 10:40> Review of Systems 10-point ROS is otherwise unremarkable General: Unremarkable Eyes: Unremarkable ENT: Unremarkable Respiratory: Unremarkable Cardiovascular: Unremarkable Gastrointestinal: Abdominal Pain (Mild lower abdomen), Other (Bowel prep overnight with good results) Genitourinary: Unremarkable Musculoskeletal: Unremarkable Integumentary: Unremarkable Neurological: Unremarkable Lymphatics: Unremarkable <Regina Alarcon - Last Filed: 11/03/23 09:27> Physical Examination - Vital Signs Temperature: 98.0 F Blood Pressure: 187/78 Pulse: 88 Respirations: 16 Pulse Ox (%): 99 - Physical Exam General: Alert, In no apparent distress, Oriented x3 HEENT: Atraumatic, Normocephalic, PERRLA Neck: Supple Respiratory: Normal air movement Cardiovascular: Regular rate/rhythm Capillary refill: <2 Seconds Gastrointestinal: Normal bowel sounds, Soft and benign Musculoskeletal: No clubbing, No swelling Integumentary: No rashes Neurological: Normal gait (With walker/rollator), Normal speech, Normal tone Lymphatics: No axilla or inguinal lymphadenopathy External genitalia: Deferred Rectal: Deferred <Regina Alarcon - Last Filed: 11/03/23 09:27> Assessment And Plan - Plan Intractable abdominal pain Status post cholecystectomy, partial colectomy Consult Dr. Acuña, consult Dr. Martinez Gentle IVF Pain control Observe for infection Observe for bleeding Lactulose 20 g p.o. daily Protonix Teds Reconcile home meds and start as appropriate Past medical history: Arthritis, Parkinson's, CAD, HLD, multiple abdominal surgeries 11/02/2023 Dr. Dominguez plans colonoscopy tomorrow Patient made n.p.o. and bowel prep ordered 11/03/23 Bowel prep successful, patient in no distress, c/o continued mild lower abdominal pain Chest x-ray clear EKG placed on chart Plan to discharge in: 48 Hours <Regina Alarcon - Last Filed: 11/03/23 09:27> - Plan Pt seen and examined. I agree with the note by the LOCKSTITCH TOPSTITCHER. Pt did colon prep. GI will do colonoscopy today. Will continue home meds forother chronic medical problems. <Sylvia Jerome - Last Filed: 11/03/23 10:40>
--- NOTE | 2023-11-03 11:48 | PN ---
Date of Progress Note: 11/03/2023 Ms. Law comes with abdominal pain, doing better. She had a bowel prep overnight. Today, she is due for colonoscopy. Even the findings of her pain is not clear, we discussed with her and her husb and the options of diagnostic lap as an outpatient once the GI workup is done. CANDICE/LANA Voice ID: [id number] Report ID: [id number]
[2023-11-03] MEDS ORDERED: Ringers Lactate 1,000 ML IV ONE (14:18)
[2023-11-03] MEDS ORDERED: SIMETHICONE 40 MG/ 0.6 ML ONE (14:38)
[2023-11-03] MEDS ORDERED: LIDOCAINE 1% MPF 5 ML VIAL ONE (15:26)
[2023-11-03] MEDS ORDERED: propofoL 200 MG/20 ML VIAL IV ONE ×2 (15:26→16:01)
[2023-11-03 16:36] VITALS: O2SAT 100
[2023-11-03] MEDS: FENTANYL CITR 100 MCG/2 ML IV ONE (17:02)
--- NOTE | 2023-11-03 19:45 | RAD REPORT ---
EXAMINATION: Small bowel series CLINICAL INDICATION: Female, 73 years old.abdominal pain, nausea of unknown etiology COMPARISON: 11/01/2023 FINDINGS: Blasting [employer] film shows a nonspecific bowel gas pattern. No obstruction or free air. No suspicious calcifica tions. Surgical clips in right upper quadrant. Gastric size and mucosal fold pattern are normal. No delay in transit of contrast into the small bowel. Small bowel is normal in diameter with no mucos al fold thickening. No intrinsic or extrinsic mass identifiable. Terminal ileum has normal appearance. Transit time to the colon is Normal. No fluoroscopy was performed. Total images acquired: IMPRESSION: Normal small bowel series.
--- NOTE | 2023-11-03 20:27 | CON ---
Date of Consultation: 11/03/2023 Reason For Consultation: Persistent right and left lower quadrant pain with change in bowel habits, constipation, nausea. History Of Present Illness: The patient is a 73-year-old female with history of diabetes, h ypertension, hyperlipidemia, coronary artery disease, gastric reflux disease, stroke, diverticulitis, status post colon resection, hysterectomy, and cholecystectomy. The patient presents to the [facility] due to nausea with persistent abdominal pain of unknown etiology. The patient had a scheduled GI C linic followup and procedures pending cardiac clearance. The patient came to the hospital because of the severity of pain. The patient states right and left lower quadrant pain is 9/10 maximum, now do wn to 7/10. Says in hospital had pain medicine and antiemetics. Still has some nausea. She denies any hematochezia, hematemesis, coffee-grounds emesis, hemoptysis, hematuria, dysuria, polydipsia. Ho wever, she does have melena, which she says has been present for the past 3 days. No change in bowel habits, constipation. She also notes upper abdominal pain across the top of her abdomen, midepigast meme, right upper and left upper quadrant area, maximum 8/10 now down and 0. Says this pain has been going up and down fluctuate on and off over the past 8 months, whereas the lower abdominal pain has b ecome constant and never totally goes away. Past Medical History: Significant for diabetes; hypertension; hyperlipidemia; coronary artery diseas e, status post carotid endarterectomy bilaterally; obesity; osteoporosis; gastroesophageal reflux dis ease; dementia; diverticulitis with colon resection in the past; Vidales esophagus; Parkinson disease ; dementia; laparoscopic cholecystectomy; and hysterectomy; chronic kidney disease; and osteoporosis. Medicines: Medicines include amantadine, amlodipine, Dulcolax, Sinemet, carvedilol, lactulose, Megan nix, Mirapex, Crestor, Phazyme in the hospital. Allergies: CODEINE. Social History: She is , 4 children, 2 boys, 2 girls. No tobacco. No alcohol. Family History: Father of myocardial infarction. Also had colon cancer. Mother of stroke . Sister with stomach cancer. Another sister with breast cancer. Review of Systems: The patient has midepigastric right and left lower quadrant pain, melena, change in bowel habits, con stipation, some anxiety, some depression with some mild joint aches, backaches, muscle aches, but no hematemesis coffee-grounds emesis, hemoptysis, hematuria, dysuria, polydipsia. No hematochezia, thou gh she does have melena. Physical Examination: Vital Signs: She currently has a temperature of 97 degrees Fahrenheit, pulse 70, respirations 14, bl ood pressure 155/68, O2 sat is 98% on room air. She is 4 feet 11 inches, 141 pounds, BMI 28.5 kg/sq m. General: She is a slightly obese elderly female, lying in bed, in mild distress, stating that her lo wer abdomen hurts and upper abdominal pain has relented. She said it comes and goes with lower abdom inal pain never totally goes away. She has 7/10 currently. HEENT: Normocephalic, atraumatic. Anicteric. Pupils equal, round, and reactive to light. Extraocu lar movements are intact. Oropharynx is clear. Neck: Supple. No masses. Respirations: Clear to auscultation bilaterally. Cardiac: Regular rate and rhythm. Gastrointestinal: Positive bowel sounds. Soft, nondistended. Tenderness. Mild pain in the lower a bdominal, right and left. No peritoneal or Stewart sign. Slight guarding. No hepatosplenomegaly. N o rebound. No Stewart sign. Extremities: No clubbing, cyanosis. Mild lower extremity edema. Neuro: Alert and oriented x3. Grossly nonfocal. 5/5 motor strength. Sensation is intact to light touch. Laboratory Data: The patient has a white count of 5.9, down from 10.0; hemoglobin 12.5, down from 13 .4; hematocrit 37.1; MCV of 98; platelet count 166; polys of 55%, down from 90%; lymphocytes 33%; mo nocytes 10%; and eosinophils 2%. The patient has a sodium 138, potassium 3.7, chloride 110, bicarb 2 4, BUN of 12, creatinine of 0.7, glucose 98, calcium 8.5. Total bilirubin 1.0, direct bilirubin 0.2, indirect 2.8. AST 15, ALT less than 40, alkaline phosphatase 37, total protein 6.3, albumin 3.0. L ipase is 15. UA is show 1+ glucose. All else negative. Serologies not done. CT abdomen and pelvis revealed no evidence of bowel obstruction. Small amount of pelvic fluid. Nondistended small bowel. Partial colon resection with colorectal anastomosis again seen within nondistended small bowel. Sm all bowel fluid-filled loops could be consistent with possibly enteritis and mild ileus. Otherwise, CT negative. Impression: 1.Right and left lower quadrant pain for 8 months. Maximum pain 9/10, now down 7/10 associated with nausea with no emesis, hematochezia or other disorders except maybe melena. She reports some consti pation could be due to ileus or functional bowel disease or irritable bowel syndrome or infection. [place] will need to check further labs inpatient and possibly consider a colonoscopy. 2.Midepigastric right upper quadrant pain, left upper quadrant pain over the past 8 months. It fluc tuates maximally at 10, now none. Once again, could be related to irritable bowel syndrome, inflamma tory bowel disease, infection, or other. We will need to investigate with labs and possible endoscopy . 3.Melena for past 3 days. It is alarm symptoms. We will need to investigate with endoscopy. 4.Change in bowel habits. Constipation. 5.History of diabetes. 6.Hypertension. 7.Hyperlipidemia. 8.Coronary artery disease. 9.Chronic renal insufficiency. 10.Dementia. 11.Stroke. 12.Parkinson disease. 13.Vidales esophagus. 14.Osteoporosis. 15.Obesity. 16.Carotid endarterectomy. 17.Colon resection due to diverticulitis. 18.Laparoscopic cholecystectomy. 19.Hysterectomy. 20.Chronic renal insufficiency. Recommendations: 1.Proceed with colonoscopy, EGD. 2.Continue IV fluids. 3.Constipation therapy. 4.Continue p.r.n. pain medications. Antiemetics. 5.Probiotic therapy. MARILIN/LANA Voice ID: [id number] Report ID: [id number]
[2023-11-03] MEDS: LACTOBACILLUS/ACIDOPHILUS TAB PO SCH (20:46)
[2023-11-03] MEDS: AMITRIPTYLINE 10 MG TAB PO SCH (20:47)
[2023-11-04] MEDS: PSYLLIUM 1 PKT PO SCH (09:00)
--- NOTE | 2023-11-04 09:17 | P.DS ---
Admission Date: 11/02/23 Discharge Date: 11/04/23 Reason for Admission: Intractable abdominal pain Consultations: Dr. Domenico Martinez Procedures: EGD and colonoscopy Brief History of Present Illness: Ms. Law is a 73-year-old female with a past medical history of hypertension, diabetes, parkinsonian tremor, anxiety, and chronic, intractable abdominal pain x 8 months with intermittent constipation who has had a cholecys tectomy and a partial colectomy. She arrives to the emergency department with increased pain, decreased stools, possible melena. Hemoglobin/hematocrit stable, patient sees Dr. Acuña and Dr. Martinez. We will admit her for further investigation and treatment with consultation to her physicians. Hospital Course: Ms. Law is feeling much better, status post bowel prep she underwent EGD and colonoscopy 11/03/[address] Martinez. He did note gastritis and some findings consistent with irritable bowel, no polyps, recommends daily fiber, Lactinex, PPI twice daily. He notes patient's poor sleeping pattern/restless legs therefore iron was checked (he 60), amitriptyline 10 mg p.o. at at bedtime given. On assessment today, Ms. Law states she has no pain and is feeling significantly better. She will be discharged with daily fiber, Lactinex, PPI, amitriptyline for bedtime with plan to follow-up with Dr. Acuña and Dr. Martinez in 1 to 2 weeks. <Regina Alarcon - Last Filed: 11/04/23 09:33> Admission Date: 11/02/23 Discharge Date: 11/04/23 Hospital Course: Patient was seen and examined. Events of the last 24 hours have been noted. Spoke with with JAH regarding patient's clinical picture after evaluating and examining the patient independently. I performed a substantial part of the MDM during this patient's care today. I personally made or approved the documented management plan and acknowledge its risk of complications. I agree with the findings and documentation provided in the JAH's notes. <Opal Centeno - Last Filed: 11/11/23 21:51> Disposition: ROUTINE DISCHARGE Discharge Condition: GOOD Vital Signs/Physical Exam: Temp Pulse Resp BP Pulse Ox 96.9 F 76 16 141/52 H 99 11/04/23 04:00 11/04/23 04:00 11/04/23 04:00 11/04/23 04:00 11/04/23 04:00 General: Alert, In no apparent distress, Oriented x3 HEENT: Atraumatic, Normocephalic Neck: Supple Respiratory: Clear to auscultation bilaterally, Normal air movement Cardiovascular: Normal pulses, Regular rate/rhythm Capillary refill: <2 Seconds Gastrointestinal: Soft and benign, No tenderness, No guarding Musculoskeletal: No clubbing Integumentary: No rashes Neurological: Normal speech, Normal tone, Normal affect Lymphatics: No axilla or inguinal lymphadenopathy External genitalia: Deferred Rectal: Deferred Laboratory Data at Discharge: WBC 5.90 thou/uL (4.3-10.9) 11/02/23 06:08 Hgb 12.5 g/dL (12.0-15.0) 11/02/23 06:08 Hct 37.1 % (36.0-45.0) 11/02/23 06:08 Plt Count 166 thou/uL (152-406) 11/02/23 06:08 Sodium 138 mEq/L (136-145) 11/02/23 06:08 Potassium 3.7 mEq/L (3.5-5.1) 11/02/23 06:08 BUN 12 mg/dL (7-18) 11/02/23 06:08 Creatinine 0.69 mg/dL (0.55-1.02) 11/02/23 06:08 Glucose 98 mg/dL (74-106) 11/02/23 06:08 Total Bilirubin 1.0 mg/dL (0.2-1.0) 11/02/23 06:08 AST 15 U/L (15-37) 11/02/23 06:08 ALT < 14 U/L (13-56) 11/02/23 06:08 Alkaline Phosphatase 37 U/L (45-117) L 11/02/23 06:08 Lipase 15 U/L (13-75) 11/02/23 06:08 <Alarcon,Regina Hermelindo - Last Filed: 11/04/23 09:33> Vital Signs/Physical Exam: Temp Pulse Resp BP Pulse Ox 97.1 F 64 16 146/53 H 99 11/04/23 08:00 11/04/23 09:58 11/04/23 08:00 11/04/23 09:58 11/04/23 08:00 Laboratory Data at Discharge: WBC 5.90 thou/uL (4.3-10.9) 11/02/23 06:08 Hgb 12.5 g/dL (12.0-15.0) 11/02/23 06:08 Hct 37.1 % (36.0-45.0) 11/02/23 06:08 Plt Count 166 thou/uL (152-406) 11/02/23 06:08 Sodium 138 mEq/L (136-145) 11/02/23 06:08 Potassium 3.7 mEq/L (3.5-5.1) 11/02/23 06:08 BUN 12 mg/dL (7-18) 11/02/23 06:08 Creatinine 0.69 mg/dL (0.55-1.02) 11/02/23 06:08 Glucose 98 mg/dL (74-106) 11/02/23 06:08 Total Bilirubin 1.0 mg/dL (0.2-1.0) 11/02/23 06:08 AST 15 U/L (15-37) 11/02/23 06:08 ALT < 14 U/L (13-56) 11/02/23 06:08 Alkaline Phosphatase 37 U/L (45-117) L 11/02/23 06:08 Lipase 15 U/L (13-75) 11/02/23 06:08 <Opal Centeno - Last Filed: 11/11/23 21:51> Diet: AHA Activity: Ad patricia <Alarcon,Regina Hermelindo - Last Filed: 11/04/23 09:33> <Opal Centeno - Last Filed: 11/11/23 21:51> Home Medications: Ranolazine [Ranexa*] 500 mg PO BID 06/21/12 carvediloL [Coreg*] 25 mg PO BEDTIME 06/21/12 Clopidogrel Bisulfate [Plavix] 75 mg PO DAILY 04/11/13 Amlodipine [Norvasc*] 10 mg PO DAILY 10/04/18 Aspirin [Ecotrin 81 MG] 81 mg PO DAILY 10/04/18 Carbidopa/Levodopa 25-100 [Sinemet 25-100*] 1 tab PO DAILYPRN PRN 10/04/18 Amantadine [Symmetrel*] 100 mg PO DAILY 11/01/23 Cholecalciferol (Vitamin D3) [Vitamin D3] 25 mcg PO DAILY 11/01/23 Memantine HCl 10 mg PO DAILY 11/01/23 Pramipexole Di-HCl [Pramipexole Dihydrochloride] 0.5 mg PO BEDTIME 11/01/23 Rosuvastatin [Crestor] 10 mg PO DAILY 11/01/23 Ubidecarenone/Vit E Acet [Co Q-10 100 mg Softgel] 2 each PO DAILY 11/01/23 Acidophilus/Bulgaricus [Lactinex Tablet Chewable] 1 each PO TID #90 tab.chew 11/04/23 Amitriptyline HCl 10 mg PO BEDTIME PRN PRN #90 tab 11/04/23 Pantoprazole Granules [Protonix Packet (for suspension)] 40 mg PO BID #90 packet 11/04/23 Psyllium Husk/Aspartame [Metamucil Sugar-Free Powder] See Rx Instructions .ROUTE .COMPLEX #1 unit 11/04/23 New Medications: Amitriptyline HCl 10 mg PO BEDTIME PRN PRN #90 tab PRN Reason: Insomnia Acidophilus/Bulgaricus [Lactinex Tablet Chewable] 1 each PO TID #90 tab.chew Psyllium Husk/Aspartame [Metamucil Sugar-Free Powder] See Rx Instructions .ROUTE .COMPLEX #1 unit Pantoprazole Granules [Protonix Packet (for suspension)] 40 mg PO BID #90 packet Physician Discharge Instructions: Dr. Acuña consult Dr. Martinez consult, colonoscopy prep completed overnight, colonoscopy plan for 11/03/2023 Ms. Law is feeling much better, status post bowel prep she underwent EGD and colonoscopy 11/03/[address] Martinez. He did note gastritis and some findings consistent with irritable bowel, no polyps, recommends daily fiber, Lactinex, PPI twice daily. He notes patient's poor sleeping pattern/restless legs therefore iron was checked (he 60), amitriptyline 10 mg p.o. at at bedtime given. On assessment today, Ms. Law states she has no pain and is feeling significantly better. She will be discharged with daily fiber, Lactinex, PPI, amitriptyline for bedtime with plan to follow-up with Dr. Acuña and Dr. Martinez in 1 to 2 weeks. Followup: Domenic Delgado, [Primary Care Provider] - Gm Martinez MD [ASSOCIATE-ACTIVE - CAN ADMIT] - Jamison Acuña MD [ACTIVE - CAN ADMIT] -
[2023-11-04 10:00] VITALS: BP 146/53
[2023-11-04 10:17] VITALS: TEMP 97.1
== END 2023-11-04 11:50 | disposition home or self-care (01) | DRG 378 ==
LOC: ER 05:03 → ERHOLD 10:34 → 2ND 14:56 → OBSVTOIN 11-02 12:29
PROVIDERS: ADMIT Hospitalist; ATTEND Hospitalist
PROC: 0DJD8ZZ Inspection of Lower Intestinal Tract, Via Natural or Artificial Opening Endoscopic (ICD-10-PCS; 2023-11-03)
PROC: 0DB68ZX Excision of Stomach, Via Natural or Artificial Opening Endoscopic, Diagnostic (ICD-10-PCS; principal; 2023-11-03 15:00)
PROC: 0DB78ZX Excision of Stomach, Pylorus, Via Natural or Artificial Opening Endoscopic, Diagnostic (ICD-10-PCS; 2023-11-03 15:00)
DX: K29.71 Gastritis, unspecified, with bleeding (principal); F03.93 Unspecified dementia, unspecified severity, with mood disturbance; K56.7 Ileus, unspecified; F03.94 Unspecified dementia, unspecified severity, with anxiety; K52.9 Noninfective gastroenteritis and colitis, unspecified; E86.0 Dehydration; I10 Essential (primary) hypertension; E11.9 Type 2 diabetes mellitus without complications; K59.00 Constipation, unspecified; K64.8 Other hemorrhoids; E66.9 Obesity, unspecified; K22.70 Barrett's esophagus without dysplasia; N28.9 Disorder of kidney and ureter, unspecified; E78.5 Hyperlipidemia, unspecified; M81.0 Age-related osteoporosis without current pathological fracture; K21.00 Gastro-esophageal reflux disease with esophagitis, without bleeding; G20.A1 Parkinson's disease without dyskinesia, without mention of fluctuations; K57.30 Diverticulosis of large intestine without perforation or abscess without bleeding; I25.10 Atherosclerotic heart disease of native coronary artery without angina pectoris; Z88.5 Allergy status to narcotic agent; Z79.82 Long term (current) use of aspirin; Z68.28 Body mass index [BMI] 28.0-28.9, adult; Z79.02 Long term (current) use of antithrombotics/antiplatelets; Z90.49 Acquired absence of other specified parts of digestive tract; Z86.73 Personal history of transient ischemic attack (TIA), and cerebral infarction without residual deficits; Z79.899 Other long term (current) drug therapy; Z90.710 Acquired absence of both cervix and uterus
CPT/HCPCS: 36415; 71045; 74018; 74177; 74250; 80048; 80053; 80076; 81003; 83540; 83690; 85025; 88305; 88312; 96374; 96375; 99284; G0378; J2001; J2405; J2470; J2704; J2765; J3010; J7030; J7040; J7120; Q9967

== ENCOUNTER 2024-04-03 21:22 | Emergency (ER) | payer OTHER ==
--- OUTSIDE RECORDS SUMMARY | 2024-04-03 21:55 | XMS REPORT | Continuity of Care Document ---
Author Name Unknown Address [address] [facility] [place] [address] [facility] thconnect Address [address] [facility] [address] [place] [address] Care Team Providers Care Summer Analyst Name Role Phone Kelsie Delgado DO Primary Care Physician + Kelsie Delgado Attending Clinician Unavailable KELSIE DELGADO Attending Clinician Unavailable Lazarus Austin Attending Clinician REBECCA MCCULLOUGH Attending Clinician Unavailable REBECCA MCCULLOUGH Admitting Clinician Unavailable Payers Payer Name Policy Type Policy Number Effective Date Expirati on Date Source [facility] [employer] TRS/ERS MCR PPO 1 [id number] 2023 00:00:00 [facility] MEDICARE [facility] [id number] [facility] [id number] [facility] MEDICARE [place] MB [id number] C [facility] MEDICARE PART A \T\ B [id number] 2013 00:00:00 Problems Condition Name Condition Details Condition Category Status Onset Date Resolution Date Last Treatment Date Treating Clinician Comments Source Diverticul itis, colon Diverticul itis, colon Disease Active 02-14 00:00: 00 [facility] Chronic low back pain Chronic low back pain Disease Active [facility] [id number] Vidales's esophagus with dysplasia Problem [facility] Biliary stricture Biliary stricture Problem [facility] Gastroduod enitis Gastritis, unspecifie d, without bleeding Problem [facility] Insomnia Insomnia due to medical condition Problem [facility] [id number] Morbid (severe) obesity due to excess calories Problem [facility] [id number] Type 2 diabetes mellitus with other diabetic kidney complicati on Problem [facility] [id number] Parkinson disease, symptomati c Problem [facility] Irritable bowel syndrome Irritable bowel syndrome without diarrhea Problem [facility] Mixed hyperlipid emia Hyperlipid emia, mixed Problem [facility] [id number] History of CVA (cerebrova scular accident) without residual deficits Problem [facility] Chronic pancreatit is Chronic pancreatit is Problem [facility] Type II diabetes mellitus well controlled Diabetes type 2, controlled Problem [facility] Osteoporos is Osteoporos is Problem [facility] Weakness Weakness Problem [facility] [id number] Primary osteoarthr itis of left knee Problem [facility] [id number] Primary insomnia Problem [facility] Diverticul ar disease of colon Diverticul osis large intestine w/o perforatio n or abscess w/o bleeding Problem [facility] [id number] Primary osteoarthr itis of right knee Problem [facility] [id number] +5th digit eff 11/06/19*CK D (chronic kidney disease) stage 3, GFR 30-59 ml/min Problem [facility] Edema of foot Edema of foot Problem [facility] 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 Problem [facility] [id number] Adult BMI 31.0-31.9 kg/sq m Problem [facility] [id number] Pharyngiti s, unspecifie d etiology Problem [facility] Parkinson' s disease Parkinsons Problem [facility] Recurrent falls Risk for falls Problem [facility] 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 Problem [facility] [id number] Other chronic pain Problem [facility] [id number] Constipati on, unspecifie d constipati on type Problem [facility] [id number] Depression , major, single episode, mild Problem [facility] [id number] Diverticul itis Problem [facility] [id number] H/O partial resection of colon Problem [facility] [id number] Tremor Problem [facility] [id number] Macrocytos is without anemia Problem [facility] [id number] Atheroscle rosis of renal artery Problem [facility] Degenerati on of lumbar interverte bral disc Other interverte bral disc degenerati on, lumbar region Problem [facility] Diabetic renal disease Type 2 diabetes mellitus with other kidney complicati on, unspecifie d whether fpc insulin use Problem [facility] [id number] Atheroscle rosis of superior mesenteric artery Problem [facility] Essential hypertensi on Essential (primary) hypertensi on Problem [facility] Vitamin D deficiency Vitamin D deficiency Problem [facility] [id number] Cough Problem [facility] Chronic kidney disease stage 3A (disorder) Chronic kidney disease, stage 3a Problem [facility] Allergies, Adverse Reactions, Alerts Allergy Name Allergy Type Status Severity Reaction(s) Onset Date Inactive Date Treating Clinician Comments Source Codeine Propensi ty to adverse reaction s to drug Active GI Intolerance 2018-02 00:00: 00 Shortness of breath [facility] Tramadol Propensi ty to adverse reaction s to drug Active Nausea and/or Vomiting 02-08 00:00: 00 [facility] TRAMADOL DRUG INGREDI Active Med N/V 02-08 00:00: 00 [facility] Codeine Propensi ty to adverse reaction s Active Nausea and/or Vomiting 08-16 00:00: 00 [facility] CODEINE DRUG INGREDI Active N/V 08-16 00:00: 00 [facility] codeine codeine Active Unknown [facility] Family History Family Member Diagnosis Comments Start Date Stop Date Sourc e Natural father Colon cancer [facility] Buddhism Natural mother Diabetes [place] [employer] Social History Social Habit Start Date Stop Date Quantity Comments Source ASSERTION Not [place] [employer] Sexual orientation pinky [employer] Exposure to SARS-CoV-2 (event) Not sure [facility] History of Tobacco Use [facility] Tobacco use and exposure 2020-08-19 00:00:00 2020-08-19 00:00:00 Never used [facility] Alcohol intake 2020-08-19 00:00:00 2020-08-19 00:00:00 Current non-drinker of alcohol (finding) [facility] Alcoholic beverage intake 2019-02-17 00:00:00 2019-02-17 00:00:00 Lifetime non-drinker (finding) [facility] History of Social function 2019-02-14 00:00:00 2019-02-14 00:00:00 [facility] [employer] Sex assigned at 1950 00:00:00 1950 00:00:00 [facility] [employer] Smoking Status Start Date Stop Date Source Never Smoker [facility] Medications Ordered Medication Name Filled Medication Name Start Date Stop Date Current Medication? Ordering Clinician Indication Dosage Frequency Signature (SIG) Comments Components Source Prolia Prolia 02-21 00:00: 00 No 1mL [facility] Lactulose 10 GM/15ML Lactulose 10 GM/15ML 2023-02 0 00:00: 00 No 15{ml_a s_neede d} QD Lactulose 10 GM/15ML Naropin (Ropivacain e HCl) Naropin (Ropivacain e HCl) 10-27 00:00: 00 No 5mg [facility] Synvisc One Synvisc One 10-27 00:00: 00 No 8mg [facility] dicyclomine (BENTYL) injection 20 mg 08-20 00:45: 00 08-19 23:50 :00 No 20mg 20 mg, Intramuscu lar, ONCE, 1 dose, Maxine 08/19/20 at 1945, Routine [facility] dicyclomine 20 mg tablet 08-19 00:00: 00 08-27 04:59 :00 No [id number] 20mg Take 1 tablet by mouth 4 (four) times daily for 7 days. [facility] Synvisc Synvisc 03-01 00:00: 00 No 16mg [facility] Bupivicaine Yolyn Bupivicaine Yolyn 2019-02 00:00: 00 No 2.5mL [facility] Kenalog (Triamcinol one) Kenalog (Triamcinol one) 2019-02 00:00: 00 No 40mg [facility] denosumab (PROLIA) 60 mg/mL syringe syringe 02-16 13:57: 53 Yes 60mg Q180D Inject 60 mg under the skin every 6 (six) months. [facility] aspirin (ECOTRIN) 81 MG enteric coated tablet 02-16 13:57: 53 Yes 81mg QD Take 81 mg by mouth daily. [facility] cholecalcif elver, vitamin D3, (VITAMIN D3) 1,000 unit tablet 02-16 13:57: 53 Yes 1000U QD Take 1,000 Units by mouth daily. [facility] simvastatin (ZOCOR) 10 MG tablet 2018-02 00:00: 00 Yes 10mg QD Take 10 mg by mouth every evening. [place] [facility] clopidogrel (PLAVIX) 75 mg tablet 2018-02 00:00: 00 Yes 75mg QD Take 75 mg by mouth daily. [place] pantoprazol e (PROTONIX) 40 MG EC tablet 2018-02 00:00: 00 Yes QD every morning. [place] [facility] ranolazine (RANEXA) 500 MG 12 hr ER tablet 2018-02 00:00: 00 Yes 500mg Q.5D Take 500 mg by mouth 2 (two) times a day. [facility] furosemide (LASIX) 20 mg tablet 06 00:00: 00 Yes 20mg Q24H Take 20 mg by mouth daily as needed. [place] [facility] carvedilol (COREG) 25 MG tablet 11-01 00:00: 00 Yes 25mg Q.5D Take 25 mg by mouth 2 (two) times a day. [facility] rosuvastati n (CRESTOR) 10 mg tablet 02-12 16:46: 47 Yes 10mg Take 10 mg by mouth at bedtime. [facility] clopidogrel (PLAVIX) 75 mg tablet 02-12 16:46: 47 Yes 75mg Take 75 mg by mouth daily. [facility] ranolazine (RANEXA) 500 mg 12 hr tablet 02-12 16:46: 47 Yes 500mg Take 500 mg by mouth 2 (two) times daily. [facility] GLIMEPIRIDE ORAL 02-12 16:46: 47 Yes 1mg Take 1 mg by mouth at bedtime. [facility] Amlodipine- Olmesartan (CONNIE) 5-40 mg Tab 02-12 16:46: 47 Yes 1{tbl} Take 1 Tab by mouth daily. [facility] Ecotrin Ecotrin No 1{table t} QD Ecotrin traZODone HCl 50 MG traZODone HCl 50 MG No QD traZODone HCl 50 MG Ondansetron HCl 4 MG Ondansetron HCl 4 MG No 1{table t} Ondansetro n HCl 4 MG Vitamin D3 25 MCG (1000 UT) Vitamin D3 25 MCG (1000 UT) No 1{capsu le} QD Vitamin D3 25 MCG (1000 UT) Carvedilol 12.5 MG Carvedilol 12.5 MG No BID Carvedilol 12.5 MG Plavix 75 MG Plavix 75 MG No 1{table t} QD Plavix 75 MG Pramipexole Dihydrochlo ride 0.5 MG Pramipexole Dihydrochlo ride 0.5 MG No 1{table t} QD Pramipexol e Dihydrochl oride 0.5 MG Rosuvastati n Calcium 10 MG Rosuvastati n Calcium 10 MG No 1{table t} QD Rosuvastat in Calcium 10 MG Memantine HCl 10 MG Memantine HCl 10 MG No 1{table t} BID Memantine HCl 10 MG Carbidopa-L evodopa 25-100 MG Carbidopa-L evodopa 25-100 MG No 1{table t_as_ne eded} Carbidopa- Levodopa 25-100 MG Ranolazine ER 500 MG Ranolazine ER 500 MG No 1{table t} BID Ranolazine ER 500 MG Amantadine HCl 100 MG Amantadine HCl 100 MG No 1{table t} QD Amantadine HCl 100 MG Co Q-10 200 MG Co Q-10 200 MG No Co Q-10 200 MG Pantoprazol e Sodium 40 MG Pantoprazol e Sodium 40 MG No QD Pantoprazo le Sodium 40 MG Metamucil Free & Natural 43 % Metamucil Free & Natural 43 % No Metamucil Free & Natural 43 % Amitriptyli ne HCl 10 MG Amitriptyli ne HCl 10 MG No 1{table t_at_be dtime} QD Amitriptyl ine HCl 10 MG amLODIPine Besylate 10 MG amLODIPine Besylate 10 MG No amLODIPine Besylate 10 MG Immunizations Ordered Immunization Name Filled Immunization Name Date Status Comments Source Moderna COVID-19 Vaccine (Low Dose Booster) Moderna COVID-19 Vaccine (Low Dose Booster) 2021-01-05 10:53:00 Completed [facility] Moderna COVID-19 Vaccine (Low Dose Booster) Moderna COVID-19 Vaccine (Low Dose Booster) 2021-01-05 10:53:00 Completed [facility] Moderna COVID-19 Vaccine (Low Dose Booster) Moderna COVID-19 Vaccine (Low Dose Booster) 2021-01-05 10:53:00 Completed [facility] Moderna COVID-19 Vaccine (Low Dose Booster) Moderna COVID-19 Vaccine (Low Dose Booster) 2021-01-05 10:53:00 Completed [facility] Moderna COVID-19 Vaccine (Low Dose Booster) Moderna COVID-19 Vaccine (Low Dose Booster) 2021-01-05 10:53:00 Completed [facility] Moderna COVID-19 Vaccine (Low Dose Booster) Moderna COVID-19 Vaccine (Low Dose Booster) 2021-01-05 10:53:00 Completed [facility] Fluzone Fluzone 2020-12-27 09:00:00 Completed [facility] Fluzone Fluzone 2020-12-27 09:00:00 Completed [facility] Fluzone Fluzone 2020-12-27 09:00:00 Completed [facility] Fluzone Fluzone 2020-12-27 09:00:00 Completed [facility] Fluzone Fluzone 2020-12-27 09:00:00 Completed [facility] Fluzone Fluzone 2020-12-27 09:00:00 Completed [facility] FluAD FluAD 2019-12-03 08:43:00 Completed [facility] FluAD FluAD 2019-12-03 08:43:00 Completed [facility] FluAD FluAD 2019-12-03 08:43:00 Completed [facility] FluAD FluAD 2019-12-03 08:43:00 Completed [facility] FluAD FluAD 2019-12-03 08:43:00 Completed [facility] FluAD FluAD 2019-12-03 08:43:00 Completed [facility] Afluria single dose Afluria single dose 11:08:00 Completed [facility] Afluria single dose Afluria single dose 11:08:00 Completed [facility] Afluria single dose Afluria single dose 11:08:00 Completed [facility] Afluria single dose Afluria single dose 11:08:00 Completed [facility] Afluria single dose Afluria single dose 11:08:00 Completed [facility] Afluria single dose Afluria single dose 11:08:00 Completed [facility] Afluria single dose Afluria single dose 00:00:00 Completed [facility] Prevnar 13 -Pneumonia Vaccine Prevnar 13 -Pneumonia Vaccine 2018-05-01 09:31:00 Completed [facility] Prevnar 13 -Pneumonia Vaccine Prevnar 13 -Pneumonia Vaccine 2018-05-01 09:31:00 Completed [facility] Prevnar 13 -Pneumonia Vaccine Prevnar 13 -Pneumonia Vaccine 2018-05-01 09:31:00 Completed [facility] Prevnar 13 -Pneumonia Vaccine Prevnar 13 -Pneumonia Vaccine 2018-05-01 09:31:00 Completed [facility] Prevnar 13 -Pneumonia Vaccine Prevnar 13 -Pneumonia Vaccine 2018-05-01 09:31:00 Completed [facility] Prevnar 13 -Pneumonia Vaccine Prevnar 13 -Pneumonia Vaccine 2018-05-01 09:31:00 Completed [facility] Prevnar 13 -Pneumonia Vaccine Prevnar 13 -Pneumonia Vaccine 2018-05-01 00:00:00 Completed [facility] Moderna COVID-19 Vaccine (Low Dose Booster) Moderna COVID-19 Vaccine (Low Dose Booster) Unknown Completed [facility] Afluria (IIV4) - 3 years and older - SDS - 0.5mL Afluria (IIV4) - 3 years and older - SDS - 0.5mL Unknown Completed [facility] FluAD FluAD Unknown Completed [facility] Fluzone Fluzone Unknown Completed [facility] Prevnar 13 -Pneumonia Vaccine Prevnar 13 -Pneumonia Vaccine Unknown Completed [facility] Prevnar 20 (PCV20) Prevnar 20 (PCV20) Unknown Completed [facility] MODERNA COVID-19 VACCINE (LOW DOSE BOOSTER) MODERNA COVID-19 VACCINE (LOW DOSE BOOSTER) Unknown Completed [facility] Afluria (IIV4) - 3 years and older - SDS - 0.5mL Afluria (IIV4) - 3 years and older - SDS - 0.5mL Unknown Completed [facility] FluAD FluAD Unknown Completed [facility] Fluzone Fluzone Unknown Completed [facility] Prevnar 13 -Pneumonia Vaccine Prevnar 13 -Pneumonia Vaccine Unknown Completed [facility] Prevnar 20 (PCV20) Prevnar 20 (PCV20) Unknown Completed [facility] MODERNA COVID-19 VACCINE (LOW DOSE BOOSTER) MODERNA COVID-19 VACCINE (LOW DOSE BOOSTER) Unknown Completed [facility] Afluria (IIV4) - 3 years and older - SDS - 0.5mL Afluria (IIV4) - 3 years and older - SDS - 0.5mL Unknown Completed [facility] FluAD FluAD Unknown Completed [facility] Fluzone Fluzone Unknown Completed [facility] Prevnar 13 -Pneumonia Vaccine Prevnar 13 -Pneumonia Vaccine Unknown Completed [facility] Prevnar 20 (PCV20) Prevnar 20 (PCV20) Unknown Completed [facility] MODERNA COVID-19 VACCINE (LOW DOSE BOOSTER) MODERNA COVID-19 VACCINE (LOW DOSE BOOSTER) Unknown Completed [facility] Afluria (IIV4) - 3 years and older - SDS - 0.5mL Afluria (IIV4) - 3 years and older - SDS - 0.5mL Unknown Completed [facility] FluAD FluAD Unknown Completed [facility] Fluzone Fluzone Unknown Completed [facility] Prevnar 13 -Pneumonia Vaccine Prevnar 13 -Pneumonia Vaccine Unknown Completed [facility] Prevnar 20 (PCV20) Prevnar 20 (PCV20) Unknown Completed [facility] MODERNA COVID-19 VACCINE (LOW DOSE BOOSTER) MODERNA COVID-19 VACCINE (LOW DOSE BOOSTER) Unknown Completed [facility] Afluria (IIV4) - 3 years and older - SDS - 0.5mL Afluria (IIV4) - 3 years and older - SDS - 0.5mL Unknown Completed [facility] FluAD FluAD Unknown Completed [facility] Fluzone Fluzone Unknown Completed [facility] Prevnar 13 -Pneumonia Vaccine Prevnar 13 -Pneumonia Vaccine Unknown Completed [facility] Prevnar 20 (PCV20) Prevnar 20 (PCV20) Unknown Completed [facility] MODERNA COVID-19 VACCINE (LOW DOSE BOOSTER) MODERNA COVID-19 VACCINE (LOW DOSE BOOSTER) Unknown Completed [facility] Afluria (IIV4) - 3 years and older - SDS - 0.5mL Afluria (IIV4) - 3 years and older - SDS - 0.5mL Unknown Completed [facility] FluAD FluAD Unknown Completed [facility] Fluzone Fluzone Unknown Completed [facility] Prevnar 13 -Pneumonia Vaccine Prevnar 13 -Pneumonia Vaccine Unknown Completed [facility] Prevnar 20 (PCV20) Prevnar 20 (PCV20) Unknown Completed [facility] MODERNA COVID-19 VACCINE (LOW DOSE BOOSTER) MODERNA COVID-19 VACCINE (LOW DOSE BOOSTER) Unknown Completed [facility] Afluria (IIV4) - 3 years and older - SDS - 0.5mL Afluria (IIV4) - 3 years and older - SDS - 0.5mL Unknown Completed [facility] FluAD FluAD Unknown Completed [facility] Fluzone Fluzone Unknown Completed [facility] Prevnar 13 -Pneumonia Vaccine Prevnar 13 -Pneumonia Vaccine Unknown Completed [facility] Prevnar 20 (PCV20) Prevnar 20 (PCV20) Unknown Completed [facility] Moderna COVID-19 Vaccine (Low Dose Booster) Moderna COVID-19 Vaccine (Low Dose Booster) Unknown Completed [facility] Afluria single dose Afluria single dose Unknown Completed [facility] FluAD FluAD Unknown Completed [facility] Fluzone Fluzone Unknown Completed [facility] Prevnar 13 -Pneumonia Vaccine Prevnar 13 -Pneumonia Vaccine Unknown Completed [facility] Prevnar 20 (PCV20) Prevnar 20 (PCV20) Unknown Completed [facility] Moderna COVID-19 Vaccine (Low Dose Booster) Moderna COVID-19 Vaccine (Low Dose Booster) Unknown Completed [facility] Afluria single dose Afluria single dose Unknown Completed [facility] FluAD FluAD Unknown Completed [facility] Fluzone Fluzone Unknown Completed [facility] Prevnar 13 -Pneumonia Vaccine Prevnar 13 -Pneumonia Vaccine Unknown Completed [facility] Prevnar 20 (PCV20) Prevnar 20 (PCV20) Unknown Completed [facility] Moderna COVID-19 Vaccine (Low Dose Booster) Moderna COVID-19 Vaccine (Low Dose Booster) Unknown Completed [facility] Afluria single dose Afluria single dose Unknown Completed [facility] FluAD FluAD Unknown Completed [facility] Fluzone Fluzone Unknown Completed [facility] Prevnar 13 -Pneumonia Vaccine Prevnar 13 -Pneumonia Vaccine Unknown Completed [facility] Prevnar 20 (PCV20) Prevnar 20 (PCV20) Unknown Completed [facility] Moderna COVID-19 Vaccine (Low Dose Booster) Moderna COVID-19 Vaccine (Low Dose Booster) Unknown Completed [facility] Afluria single dose Afluria single dose Unknown Completed [facility] FluAD FluAD Unknown Completed [facility] Fluzone Fluzone Unknown Completed [facility] Prevnar 13 -Pneumonia Vaccine Prevnar 13 -Pneumonia Vaccine Unknown Completed [facility] Prevnar 20 (PCV20) Prevnar 20 (PCV20) Unknown Completed [facility] Moderna COVID-19 Vaccine (Low Dose Booster) Moderna COVID-19 Vaccine (Low Dose Booster) Unknown Completed [facility] Afluria single dose Afluria single dose Unknown Completed [facility] FluAD FluAD Unknown Completed [facility] Fluzone Fluzone Unknown Completed [facility] Prevnar 13 -Pneumonia Vaccine Prevnar 13 -Pneumonia Vaccine Unknown Completed [facility] Prevnar 20 (PCV20) Prevnar 20 (PCV20) Unknown Completed [facility] Moderna COVID-19 Vaccine (Low Dose Booster) Moderna COVID-19 Vaccine (Low Dose Booster) Unknown Completed [facility] Afluria single dose Afluria single dose Unknown Completed [facility] Fluad (IIV) - SDS - 0.5mL Fluad (IIV) - SDS - 0.5mL Unknown Completed [facility] Fluzone Fluzone Unknown Completed [facility] Prevnar 13 -Pneumonia Vaccine Prevnar 13 -Pneumonia Vaccine Unknown Completed [facility] Prevnar 20 (PCV20) Prevnar 20 (PCV20) Unknown Completed [facility] Moderna COVID-19 Vaccine (Low Dose Booster) Moderna COVID-19 Vaccine (Low Dose Booster) Unknown Completed [facility] Afluria single dose Afluria single dose Unknown Completed [facility] FluAD FluAD Unknown Completed [facility] Fluzone Fluzone Unknown Completed [facility] Prevnar 13 -Pneumonia Vaccine Prevnar 13 -Pneumonia Vaccine Unknown Completed [facility] Prevnar 20 (PCV20) Prevnar 20 (PCV20) Unknown Completed [facility] Moderna COVID-19 Vaccine (Low Dose Booster) Moderna COVID-19 Vaccine (Low Dose Booster) Unknown Completed [facility] Afluria single dose Afluria single dose Unknown Completed [facility] FluAD FluAD Unknown Completed [facility] Fluzone Fluzone Unknown Completed [facility] Prevnar 13 -Pneumonia Vaccine Prevnar 13 -Pneumonia Vaccine Unknown Completed [facility] Prevnar 20 (PCV20) Prevnar 20 (PCV20) Unknown Completed [facility] Moderna COVID-19 Vaccine (Low Dose Booster) Moderna COVID-19 Vaccine (Low Dose Booster) Unknown Completed [facility] Afluria single dose Afluria single dose Unknown Completed [facility] FluAD FluAD Unknown Completed [facility] Fluzone Fluzone Unknown Completed [facility] Prevnar 13 -Pneumonia Vaccine Prevnar 13 -Pneumonia Vaccine Unknown Completed [facility] Prevnar 20 (PCV20) Prevnar 20 (PCV20) Unknown Completed [facility] Moderna COVID-19 Vaccine (Low Dose Booster) Moderna COVID-19 Vaccine (Low Dose Booster) Unknown Completed [facility] Afluria single dose Afluria single dose Unknown Completed [facility] FluAD FluAD Unknown Completed [facility] Fluzone Fluzone Unknown Completed [facility] Prevnar 13 -Pneumonia Vaccine Prevnar 13 -Pneumonia Vaccine Unknown Completed [facility] Prevnar 20 (PCV20) Prevnar 20 (PCV20) Unknown Completed [facility] Moderna COVID-19 Vaccine (Low Dose Booster) Moderna COVID-19 Vaccine (Low Dose Booster) Unknown Completed [facility] Afluria single dose Afluria single dose Unknown Completed [facility] FluAD FluAD Unknown Completed [facility] Fluzone Fluzone Unknown Completed [facility] Prevnar 13 -Pneumonia Vaccine Prevnar 13 -Pneumonia Vaccine Unknown Completed [facility] Prevnar 20 (PCV20) Prevnar 20 (PCV20) Unknown Completed [facility] Moderna COVID-19 Vaccine (Low Dose Booster) Moderna COVID-19 Vaccine (Low Dose Booster) Unknown Completed [facility] Afluria single dose Afluria single dose Unknown Completed [facility] FluAD FluAD Unknown Completed [facility] Fluzone Fluzone Unknown Completed [facility] Prevnar 13 -Pneumonia Vaccine Prevnar 13 -Pneumonia Vaccine Unknown Completed [facility] Prevnar 20 (PCV20) Prevnar 20 (PCV20) Unknown Completed [facility] Moderna COVID-19 Vaccine (Low Dose Booster) Moderna COVID-19 Vaccine (Low Dose Booster) Unknown Completed [facility] Afluria (IIV4) - 3 years and older - SDS - 0.5mL Afluria (IIV4) - 3 years and older - SDS - 0.5mL Unknown Completed [facility] FluAD FluAD Unknown Completed [facility] Fluzone Fluzone Unknown Completed [facility] Prevnar 13 -Pneumonia Vaccine Prevnar 13 -Pneumonia Vaccine Unknown Completed [facility] Prevnar 20 (PCV20) Prevnar 20 (PCV20) Unknown Completed [facility] Moderna COVID-19 Vaccine (Low Dose Booster) Moderna COVID-19 Vaccine (Low Dose Booster) Unknown Completed [facility] Afluria (IIV4) - 3 years and older - SDS - 0.5mL Afluria (IIV4) - 3 years and older - SDS - 0.5mL Unknown Completed [facility] FluAD FluAD Unknown Completed [facility] Fluzone Fluzone Unknown Completed [facility] Prevnar 13 -Pneumonia Vaccine Prevnar 13 -Pneumonia Vaccine Unknown Completed [facility] Prevnar 20 (PCV20) Prevnar 20 (PCV20) Unknown [facility]) Moderna COVID-19 Vaccine (Low Dose Booster) Unknown Completed [facility] Afluria (IIV4) - 3 years and older - SDS - 0.5mL Afluria (IIV4) - 3 years and older - SDS - 0.5mL Unknown Completed [facility] FluAD FluAD Unknown Completed [facility] Fluzone Fluzone Unknown Completed [facility] Prevnar 13 -Pneumonia Vaccine Prevnar 13 -Pneumonia Vaccine Unknown Completed [facility] Prevnar 20 (PCV20) Prevnar 20 (PCV20) Unknown Completed [facility] Moderna COVID-19 Vaccine (Low Dose Booster) Moderna COVID-19 Vaccine (Low Dose Booster) Unknown Completed [facility] Afluria (IIV4) - 3 years and older - SDS - 0.5mL Afluria (IIV4) - 3 years and older - SDS - 0.5mL Unknown Completed [facility] FluAD FluAD Unknown Completed [facility] Fluzone Fluzone Unknown Completed [facility] Prevnar 13 -Pneumonia Vaccine Prevnar 13 -Pneumonia Vaccine Unknown Completed [facility] Prevnar 20 (PCV20) Prevnar 20 (PCV20) Unknown Completed [facility] Moderna COVID-19 Vaccine (Low Dose Booster) Moderna COVID-19 Vaccine (Low Dose Booster) Unknown Completed [facility] Afluria (IIV4) - 3 years and older - SDS - 0.5mL Afluria (IIV4) - 3 years and older - SDS - 0.5mL Unknown Completed [facility] FluAD FluAD Unknown Completed [facility] Fluzone Fluzone Unknown Completed [facility] Prevnar 13 -Pneumonia Vaccine Prevnar 13 -Pneumonia Vaccine Unknown Completed [facility] Prevnar 20 (PCV20) Prevnar 20 (PCV20) Unknown [facility] Vacc[facility] (Low Dose Booster) Moderna COVID-19 Vaccine (Low Dose Booster) Unknown Completed [facility] Afluria (IIV4) - 3 years and older - SDS - 0.5mL Afluria (IIV4) - 3 years and older - SDS - 0.5mL Unknown Completed [facility] FluAD FluAD Unknown Completed [facility] Fluzone Fluzone Unknown Completed [facility] Prevnar 13 -Pneumonia Vaccine Prevnar 13 -Pneumonia Vaccine Unknown Completed [facility] Prevnar 20 (PCV20) Prevnar 20 (PCV20) Unknown Completed [facility] Moderna COVID-19 Vaccine (Low Dose Booster) Moderna COVID-19 Vaccine (Low Dose Booster) Unknown Completed [facility] Afluria (IIV4) - 3 years and older - SDS - 0.5mL Afluria (IIV4) - 3 years and older - SDS - 0.5mL Unknown Completed [facility] FluAD FluAD Unknown Completed [facility] Fluzone Fluzone Unknown Completed [facility] Prevnar 13 -Pneumonia Vaccine Prevnar 13 -Pneumonia Vaccine Unknown Completed [facility] Prevnar 20 (PCV20) Prevnar 20 (PCV20) Unknown Completed [facility] Moderna COVID-19 Vaccine (Low Dose Booster) Moderna COVID-19 Vaccine (Low Dose Booster) Unknown Completed [facility] Afluria (IIV4) - 3 years and older - SDS - 0.5mL Afluria (IIV4) - 3 years and older - SDS - 0.5mL Unknown Completed [facility] FluAD FluAD Unknown Completed [facility] Fluzone Fluzone Unknown Completed [facility] Prevnar 13 -Pneumonia Vaccine Prevnar 13 -Pneumonia Vaccine Unknown Completed [facility] Prevnar 20 (PCV20) Prevnar 20 (PCV20) Unknown Completed [facility] Vital Signs Vital Name Observation Time Observation Value Comments S ource height 2023-12-10 08:45:00 56 [in_i] Commo n [facility] weight 2023-12-10 08:45:00 141.8 [lb_av] Co [facility] temperature 2023-12-10 08:45:00 98 [degF] Comm on [facility] bmi 2023-12-10 08:45:00 31.79 kg/m2 Comm on [facility] oximetry 2023-12-10 08:45:00 99 % Comm n [facility] blood pressure systolic 2023-12-10 08:45:00 118 mm[Hg] Common [facility] blood pressure diastolic 2023-12-10 08:45:00 70 mm[Hg] Common [facility] height 2023-11-09 14:40:00 56 [in_i] Commo n [facility] weight 2023-11-09 14:40:00 145.0 [lb_av] Co mmon [facility] temperature 2023-11-09 14:40:00 97.0 [degF] Com mon [facility] bmi 2023-11-09 14:40:00 32.5 kg/m2 Commo n [facility] oximetry 2023-11-09 14:40:00 100 % Commo n [facility] respiratory rate 2023-11-09 14:40:00 17 /min [facility] blood pressure systolic 2023-11-09 14:40:00 137 mm[Hg] [facility] blood pressure diastolic 2023-11-09 14:40:00 67 mm[Hg] [facility] height 2023-10-01 08:40:00 56 [in_i] Commo n [facility] weight 2023-10-01 08:40:00 146.0 [lb_av] Co [facility] temperature 2023-10-01 08:40:00 97.3 [degF] Com [facility] bmi 2023-10-01 08:40:00 32.73 kg/m2 Comm on [facility] oximetry 2023-10-01 08:40:00 100 % Commo n [facility] respiratory rate 2023-10-01 08:40:00 17 /min [facility] blood pressure systolic 2023-10-01 08:40:00 132 mm[Hg] Common [facility] blood pressure diastolic 2023-10-01 08:40:00 66 mm[Hg] [facility] height 2023-09-19 08:00:00 56 [in_i] Commo n [facility] weight 2023-09-19 08:00:00 144.2 [lb_av] Co [facility] temperature 2023-09-19 08:00:00 97.5 [degF] Com [facility] bmi 2023-09-19 08:00:00 32.33 kg/m2 Comm on [facility] oximetry 2023-09-19 08:00:00 100 % Commo n [facility] respiratory rate 2023-09-19 08:00:00 18 /min Common [facility] blood pressure systolic 2023-09-19 08:00:00 140 mm[Hg] [facility] blood pressure diastolic 2023-09-19 08:00:00 72 mm[Hg] Common [facility] height 2023-08-21 11:00:00 56 [in_i] Commo n [facility] weight 2023-08-21 11:00:00 143 [lb_av] Comm on [facility] bmi 2023-08-21 11:00:00 32.06 kg/m2 Comm on [facility] height 2023-08-07 08:30:00 56 [in_i] Commo n [facility] weight 2023-08-07 08:30:00 143.8 [lb_av] Co mmon [facility] temperature 2023-08-07 08:30:00 97.4 [degF] Com [facility] bmi 2023-08-07 08:30:00 32.24 kg/m2 Comm on [facility] oximetry 2023-08-07 08:30:00 99 % Commo n [facility] blood pressure systolic 2023-08-07 08:30:00 126 mm[Hg] Common [facility] blood pressure diastolic 2023-08-07 08:30:00 68 mm[Hg] [facility] height 2023-04-06 09:40:00 56 [in_i] Commo n [facility] weight 2023-04-06 09:40:00 146.2 [lb_av] Co mmon [facility] temperature 2023-04-06 09:40:00 97.2 [degF] Com mon [facility] bmi 2023-04-06 09:40:00 32.77 kg/m2 Comm on [facility] oximetry 2023-04-06 09:40:00 99 % Commo n [facility] blood pressure systolic 2023-04-06 09:40:00 122 mm[Hg] Common [facility] blood pressure diastolic 2023-04-06 09:40:00 64 mm[Hg] [facility] height 2023-04-06 09:40:00 56 [in_i] Commo n [facility] weight 2023-04-06 09:40:00 146.2 [lb_av] Co mmon [facility] temperature 2023-04-06 09:40:00 97.2 [degF] Com mon [facility] bmi 2023-04-06 09:40:00 32.77 kg/m2 Comm on [facility] oximetry 2023-04-06 09:40:00 99 % Commo n [facility] respiratory rate 2023-04-06 09:40:00 16 /min Common [facility] blood pressure systolic 2023-04-06 09:40:00 122 mm[Hg] [facility] blood pressure diastolic 2023-04-06 09:40:00 64 mm[Hg] Common [facility] height 2023-01-09 09:30:00 56 [in_i] Commo n [facility] weight 2023-01-09 09:30:00 145.6 [lb_av] Co mmon [facility] temperature 2023-01-09 09:30:00 97.7 [degF] Com mon [facility] bmi 2023-01-09 09:30:00 32.64 kg/m2 Comm on [facility] oximetry 2023-01-09 09:30:00 99 % Commo n [facility] respiratory rate 2023-01-09 09:30:00 18 /min [facility] blood pressure systolic 2023-01-09 09:30:00 139 mm[Hg] [facility] blood pressure diastolic 2023-01-09 09:30:00 76 mm[Hg] [facility] height 2023-01-02 15:20:00 56 [in_i] Commo n [facility] weight 2023-01-02 15:20:00 143.8 [lb_av] Co mmon [facility] temperature 2023-01-02 15:20:00 98.2 [degF] Com mon [facility] bmi 2023-01-02 15:20:00 32.24 kg/m2 Comm on [facility] oximetry 2023-01-02 15:20:00 100 % Commo n [facility] respiratory rate 2023-01-02 15:20:00 17 /min [facility] blood pressure systolic 2023-01-02 15:20:00 157 mm[Hg] [facility] blood pressure diastolic 2023-01-02 15:20:00 72 mm[Hg] [facility] height 2022-12-25 15:40:00 56 [in_i] Commo n [facility] weight 2022-12-25 15:40:00 145.2 [lb_av] Co mmon [facility] temperature 2022-12-25 15:40:00 97.3 [degF] Com mon [facility] bmi 2022-12-25 15:40:00 32.55 kg/m2 Comm on [facility] oximetry 2022-12-25 15:40:00 100 % Commo n [facility] respiratory rate 2022-12-25 15:40:00 16 /min Common [facility] blood pressure systolic 2022-12-25 15:40:00 175 mm[Hg] [facility] blood pressure diastolic 2022-12-25 15:40:00 72 mm[Hg] [facility] height 2022-12-13 08:10:00 56 [in_i] Commo n [facility] weight 2022-12-13 08:10:00 146.6 [lb_av] Co mmon [facility] temperature 2022-12-13 08:10:00 98.1 [degF] Com [facility] bmi 2022-12-13 08:10:00 32.86 kg/m2 Comm on [facility] oximetry 2022-12-13 08:10:00 98 % Commo n [facility] respiratory rate 2022-12-13 08:10:00 18 /min Common [facility] blood pressure systolic 2022-12-13 08:10:00 129 mm[Hg] Common [facility] blood pressure diastolic 2022-12-13 08:10:00 74 mm[Hg] Common [facility] height 2022-08-28 09:00:00 56 [in_i] Commo n [facility] weight 2022-08-28 09:00:00 146.0 [lb_av] Co mmon [facility] temperature 2022-08-28 09:00:00 96.6 [degF] Com [facility] bmi 2022-08-28 09:00:00 32.73 kg/m2 Comm on [facility] oximetry 2022-08-28 09:00:00 99 % Commo n [facility] respiratory rate 2022-08-28 09:00:00 18 /min Common [facility] blood pressure systolic 2022-08-28 09:00:00 137 mm[Hg] Common [facility] blood pressure diastolic 2022-08-28 09:00:00 64 mm[Hg] Common [facility] height 2022-07-11 16:00:00 56 [in_i] Commo n [facility] weight 2022-07-11 16:00:00 151.0 [facility]_av[facility]-11 16:00:00 97.2 [degF] Com mon [facility] bmi 2022-07-11 16:00:00 33.85 kg/m2 Comm on [facility] oximetry 2022-07-11 16:00:00 100 % Commo n [facility] respiratory rate 2022-07-11 16:00:00 16 /min Common [facility] blood pressure systolic 2022-07-11 16:00:00 138 mm[Hg] Common [facility] blood pressure diastolic 2022-07-11 16:00:00 64 mm[Hg] Common [facility] height 2022-06-21 09:30:00 56 [in_i] Commo n [facility] weight 2022-06-21 09:30:00 154 [lb_av] Comm on [facility] bmi 2022-06-21 09:30:00 34.52 kg/m2 Comm on [facility] height 2022-04-27 08:10:00 56 [in_i] Commo n [facility] weight 2022-04-27 08:10:00 154 [lb_av] Comm on [facility] temperature 2022-04-27 08:10:00 97.2 [degF] Com mon [facility] bmi 2022-04-27 08:10:00 34.52 kg/m2 Comm on [facility] oximetry 2022-04-27 08:10:00 98 % Commo n [facility] respiratory rate 2022-04-27 08:10:00 16 /min Common [facility] blood pressure systolic 2022-04-27 08:10:00 139 mm[Hg] [facility] blood pressure diastolic 2022-04-27 08:10:00 67 mm[Hg] Common [facility] height 2022-04-27 08:00:00 56 [in_i] Commo n [facility] weight 2022-04-27 08:00:00 154 [lb_av] Comm on [facility] temperature 2022-04-27 08:00:00 97.2 [degF] Com mon [facility] bmi 2022-04-27 08:00:00 34.52 kg/m2 Comm on [facility] oximetry 2022-04-27 08:00:00 98 % Commo n [facility] respiratory rate 2022-04-27 08:00:00 16 /min Common [facility] blood pressure systolic 2022-04-27 08:00:00 139 mm[Hg] [facility] blood pressure diastolic 2022-04-27 08:00:00 67 mm[Hg] Common [facility] height 2021-12-26 09:20:00 56 [in_i] Commo n [facility] weight 2021-12-26 09:20:00 153.9 [lb_av] Co mmon [facility] temperature 2021-12-26 09:20:00 96.7 [degF] Com mon [facility] bmi 2021-12-26 09:20:00 34.5 kg/m2 Commo n [facility] oximetry 2021-12-26 09:20:00 99 % Commo n [facility] respiratory rate 2021-12-26 09:20:00 18 /min Common [facility] blood pressure systolic 2021-12-26 09:20:00 123 mm[Hg] Common [facility] blood pressure diastolic 2021-12-26 09:20:00 63 mm[Hg] Common [facility] height 2021-10-27 14:15:00 56 [in_i] Commo n [facility] weight 2021-10-27 14:15:00 156 [lb_av] Comm on [facility] temperature 2021-10-27 14:15:00 97.7 [degF] Com [facility] bmi 2021-10-27 14:15:00 34.97 kg/m2 Comm on [facility] blood pressure systolic 2021-10-27 14:15:00 134 mm[Hg] [facility] blood pressure diastolic 2021-10-27 14:15:00 84 mm[Hg] [facility] height 2021-10-03 13:00:00 56 [in_i] Commo n [facility] weight 2021-10-03 13:00:00 156.4 [facility]lb_av] [facility] 2021-10-03 13:00:00 97.5 [degF] Com [facility] bmi 2021-10-03 13:00:00 35.06 kg/m2 Comm on [facility] blood pressure systolic 2021-10-03 13:00:00 138 mm[Hg] Common [facility] blood pressure diastolic 2021-10-03 13:00:00 78 mm[Hg] [facility] height 2021-08-23 09:30:00 56 [in_i] Commo n [facility] weight 2021-08-23 09:30:00 157 [lb_av] Comm on [facility] temperature 2021-08-23 09:30:00 97.6 [degF] Com [facility] bmi 2021-08-23 09:30:00 35.19 kg/m2 Comm on [facility] oximetry 2021-08-23 09:30:00 99 % Commo n [facility] respiratory rate 2021-08-23 09:30:00 16 /min [facility] blood pressure systolic 2021-08-23 09:30:00 132 mm[Hg] Common [facility] blood pressure diastolic 2021-08-23 09:30:00 86 mm[Hg] Common [facility] height 2021-04-25 08:50:00 57 [in_i] Commo n [facility] weight 2021-04-25 08:50:00 152.2 [lb_av] Co [facility] bmi 2021-04-25 08:50:00 32.93 kg/m2 Comm on [facility] oximetry 2021-04-25 08:50:00 96 % Commo n [facility] respiratory rate 2021-04-25 08:50:00 17 /min [facility] blood pressure systolic 2021-04-25 08:50:00 130 mm[Hg] [facility] blood pressure diastolic 2021-04-25 08:50:00 61 mm[Hg] Common [facility] height 2021-04-25 09:00:00 57 [in_i] Commo n [facility] weight 2021-04-25 09:00:00 152.2 [lb_av] Co [facility] temperature 2021-04-25 09:00:00 98.2 [degF] Com mon [facility] bmi 2021-04-25 09:00:00 32.93 kg/m2 Comm on [facility] oximetry 2021-04-25 09:00:00 96 % Commo n [facility] respiratory rate 2021-04-25 09:00:00 17 /min Common [facility] blood pressure systolic 2021-04-25 09:00:00 130 mm[Hg] [facility] blood pressure diastolic 2021-04-25 09:00:00 61 mm[Hg] Common [facility] height 2021-02-09 09:40:00 57 [in_i] Commo n [facility] weight 2021-02-09 09:40:00 149.4 [lb_av] Co [facility] bmi 2021-02-09 09:40:00 32.33 kg/m2 Comm on [facility] height 2020-12-27 08:40:00 57 [in_i] Commo n [facility] weight 2020-12-27 08:40:00 149.4 [lb_av] Co mmon [facility] temperature 2020-12-27 08:40:00 97.2 [degF] Com mon [facility] bmi 2020-12-27 08:40:00 32.33 kg/m2 Comm on [facility] oximetry 2020-12-27 08:40:00 96 % Commo n [facility] respiratory rate 2020-12-27 08:40:00 16 /min [facility] blood pressure systolic 2020-12-27 08:40:00 126 mm[Hg] [facility] blood pressure diastolic 2020-12-27 08:40:00 61 mm[Hg] [facility] Systolic blood pressure 2020-08-19 23:00:00 184 mm[Hg] [facility] Diastolic blood pressure 2020-08-19 23:00:00 62 mm[Hg] [facility] Heart rate 2020-08-19 23:00:00 93 /min [facility] Respiratory rate 2020-08-19 23:00:00 19 /min [facility] Body temperature 2020-08-19 22:53:00 35.94 [place] [facility] Body weight 2020-08-19 22:53:00 76.658 kg [facility] BMI 2020-08-19 22:53:00 34.13 kg/m2 [facility] Oxygen saturation in Arterial blood by Pulse oximetry 2020-08-19 22:53:00 99 /min [facility] Procedures Procedure Date / Time Performed Performing Clinicia n Source NOTICE OF PRIVACY PRACTICES 2020-08-19 22:45:09 Doctor Unassigned, [place] [facility] NOTICE OF PRIVACY PRACTICES 2020-08-19 22:42:29 Doctor Unassigned, [place] [facility] CONSENT/REFUSAL FOR DIAGNOSIS AND TREATMENT 2020-08-19 22:41:47 Doctor Unassigned, [place] [facility] Encounters Start Date/Time End Date/Time Encounter Type Admission Type Attending [facility] Facility Care Department Encounter ID Source 2023-12-07 09:47:00 Outpatient Delgado, Kelsie STLC STLC [id number] [facility] 2023-09-20 16:27:00 Outpatient Delgado, Kelsie STLC STLMLC [id number] [facility] 2023-08-28 15:36:00 Outpatient Delgado, Kelsie STLC STLMLC [id number] [facility] 2023-08-07 09:37:00 Outpatient Delgado, Kelsie STLC STLMLC [id number] [facility] 2023-01-08 14:06:00 Outpatient Delgado, Kelsie STLC STLMLC [id number] [facility] 2022-12-25 09:31:00 Outpatient Delgado, Kelsie STLC STLMLC [id number] [facility] 2022-04-27 08:42:00 Outpatient Delgado, Kelsie STLC STLMLC [id number] [facility] 2022-04-26 08:58:00 Outpatient Delgado, Kelsie STLC STLMLC [id number] [facility] 2021-12-22 09:07:00 Outpatient Delgado, Kelsie STLC STLMLC [id number] [facility] 2021-10-11 10:18:00 Outpatient Delgado, Kelsie STLC STLMLC [id number] [facility] 2021-09-30 09:42:00 Outpatient Delgado, Kelsie STLC STLMLC [id number] [facility] 2021-09-13 10:57:00 Outpatient Delgado, Kelsie STLMLC STLMLC [id number] [facility] 2021-03-02 14:30:44 Outpatient Delgado, Kelsie STLMLC STLMLC [id number] [facility] 2021-03-02 14:19:13 Outpatient Delgado, Kelsie STLMLC STLMLC [id number] [facility] 2021-03-02 12:39:20 Outpatient Delgado, Kelsie STLMLC STLMLC [id number] [facility] 2021-03-02 12:38:18 Outpatient Delgado, Kelsie STLMLC STLMLC [id number] [facility] 2021-03-02 12:37:15 Outpatient Delgado, Kelsie STLMLC STLMLC [id number] [facility] 2021-03-02 12:35:35 Outpatient Delgado, Kelsie STLMLC STLMLC [id number] [facility] 2021-03-02 12:18:03 Outpatient Delgado, Kelsie STLMLC STLMLC [id number] [facility] 2021-03-02 12:17:22 Outpatient Delgado, Kelsie STLMLC STLMLC [id number] [facility] [facility] 2021-03-02 12:11:17 Outpatient Delgado, Kelsie STLMLC STLMLC [id number] [facility] 2021-03-02 12:10:46 Outpatient Delgado, Kelsie STLMLC STLMLC [id number] [facility] 2021-03-02 11:25:35 Outpatient Delgado, Kelsie STLMLC STLMLC [id number] [facility] 2021-03-02 11:17:13 Outpatient Delgado, Kelsie STLMLC STLMLC [id number] [facility] 2021-03-02 11:13:08 Outpatient Delgado, Kelsie STLMLC STLMLC [id number] [facility] 2021-03-02 11:12:44 Outpatient Delgado, Kelsie STLMLC STLMLC [id number] [facility] 2021-03-02 11:06:11 Outpatient Delgado, Kelsie STLMLC STLMLC [id number] [facility] 2024-03-26 00:00:00 2024-03-26 00:00:00 (TEL) STLMLC STLMLC [id number] [facility] 2024-02-22 00:00:00 2024-02-22 00:00:00 (INJ) Injection STLMLC STLMLC [id number] [facility] 2024-02-12 00:00:00 2024-02-12 00:00:00 (TEL) STLMLC STLMLC [id number] [facility] 2023-12-21 00:00:00 2023-12-21 00:00:00 (TEL) STLMLC STLMLC [id number] [facility] 2023-12-10 00:00:00 2023-12-10 00:00:00 OFFICE VISIT ESTAB PT LEVEL 4 STLMLC STLMLC [id number] [facility] 2023-11-09 00:00:00 2023-11-09 00:00:00 (HOSP F/U) Hospital Follow Up STLMLC STLMLC [id number] [facility] 2023-11-06 00:00:00 2023-11-06 00:00:00 (TEL) STLMLC STLMLC [id number] [facility] 2023-10-01 00:00:00 2023-10-01 00:00:00 OFFICE VISIT ESTAB PT LEVEL 3 STLMLC STLMLC [id number] [facility] 2023-09-20 00:00:00 2023-09-20 00:00:00 (TEL) STLMLC STLMLC [id number] [facility] 2023-09-19 00:00:00 2023-09-19 00:00:00 OFFICE VISIT ESTAB PT LEVEL 4 STLMLC STLMLC [id number] [facility] 2023-09-18 00:00:00 2023-09-18 00:00:00 (TEL) STLMLC STLMLC [id number] [facility] 2023-08-22 00:00:00 2023-08-22 00:00:00 (TEL) STLMLC STLMLC [id number] [facility] 2023-08-21 00:00:00 2023-08-21 00:00:00 (TEL) STLMLC STLMLC [id number] [facility] 2023-08-21 00:00:00 2023-08-21 00:00:00 (TEL) STLMLC STLMLC [id number] [facility] 2023-08-21 00:00:00 2023-08-21 00:00:00 OFFICE VISIT ESTAB PT LEVEL 3 STLMLC STLMLC [id number] [facility] 2023-08-07 00:00:00 2023-08-07 00:00:00 OFFICE VISIT ESTAB PT LEVEL 4 STLMLC STLMLC [id number] [facility] 2023-08-07 00:00:00 2023-08-07 00:00:00 (TEL) STLMLC STLMLC [id number] [facility] 2023-05-08 00:00:00 2023-05-08 00:00:00 (TEL) STLMLC STLMLC [id number] [facility] 2023-04-06 00:00:00 2023-04-06 00:00:00 OFFICE VISIT ESTAB PT LEVEL 4 STLMLC STLMLC [id number] [facility] 2023-04-06 00:00:00 2023-04-06 00:00:00 SUB ANNUAL [facility] VISIT STLMLC STLMLC [id number] [facility] 2023-03-30 00:00:00 2023-03-30 00:00:00 (TEL) STLMLC STLMLC [id number] [facility] 2023-02-26 00:00:00 2023-02-26 00:00:00 (TEL) STLMLC STLMLC [id number] [facility] 2023-01-09 00:00:00 2023-01-09 00:00:00 OFFICE VISIT ESTAB PT LEVEL 4 STLMLC STLMLC [id number] [facility] 2023-01-02 00:00:00 2023-01-02 00:00:00 OFFICE VISIT ESTAB PT LEVEL 4 STLMLC STLMLC [id number] [facility] 2022-12-29 00:00:00 2022-12-29 00:00:00 (TEL) STLMLC STLMLC [id number] [facility] 2022-12-25 00:00:00 2022-12-25 00:00:00 (TEL) STLMLC STLMLC [id number] [facility] 2022-12-25 00:00:00 2022-12-25 00:00:00 OFFICE VISIT ESTAB PT LEVEL 3 STLMLC STLMLC [id number] [facility] 2022-12-13 00:00:00 2022-12-13 00:00:00 OFFICE VISIT ESTAB PT LEVEL 2 STLMLC STLMLC [id number] [facility] 2022-12-07 00:00:00 2022-12-07 00:00:00 (TEL) STLMLC STLMLC [id number] [facility] 2022-09-19 00:00:00 2022-09-19 00:00:00 (TEL) STLMLC STLMLC [id number] [facility] 2022-08-30 00:00:00 2022-08-30 00:00:00 (TEL) STLMLC STLMLC [id number] [facility] 2022-08-28 00:00:00 2022-08-28 00:00:00 OFFICE VISIT ESTAB PT LEVEL 4 STLMLC STLMLC [id number] [facility] 2022-07-14 00:00:00 2022-07-14 00:00:00 (TEL) STLMLC STLMLC [id number] [facility] 2022-07-11 00:00:00 2022-07-11 00:00:00 (TEL) STLMLC STLMLC [id number] [facility] 2022-07-11 00:00:00 2022-07-11 00:00:00 OFFICE VISIT ESTAB PT LEVEL 3 STLMLC STLMLC [id number] [facility] 2022-06-28 00:00:00 2022-06-28 00:00:00 (TEL) STLMLC STLMLC [id number] [facility] 2022-06-21 00:00:00 2022-06-21 00:00:00 OFFICE VISIT ESTAB PT LEVEL 3 STLMLC STLMLC [id number] [facility] 2022-06-20 00:00:00 2022-06-20 00:00:00 (TEL) STLMLC STLMLC [id number] [facility] 2022-05-11 00:00:00 2022-05-11 00:00:00 (WEB) STLMLC STLMLC [id number] [facility] 2022-05-10 00:00:00 2022-05-10 00:00:00 (TEL) STLMLC STLMLC [id number] [facility] 2022-04-27 00:00:00 2022-04-27 00:00:00 OFFICE VISIT ESTAB PT LEVEL 4 STLMLC STLMLC [id number] [facility] 2022-04-27 00:00:00 2022-04-27 00:00:00 SUB ANNUAL [facility] VISIT STLMLC STLMLC [id number] [facility] 2022-04-27 00:00:00 2022-04-27 00:00:00 (TEL) STLMLC STLMLC [id number] [facility] 2022-01-13 08:47:00 2022-02-04 00:01:00 [id number] [facility] 2021-12-26 00:00:00 2021-12-26 00:00:00 OFFICE VISIT ESTAB PT LEVEL 4 STLMLC STLMLC [id number] [facility] 2021-10-27 00:00:00 2021-10-27 00:00:00 (IN/ASP) INJ ASP STLMLC STLMLC [id number] [facility] 2021-10-12 00:00:00 2021-10-12 00:00:00 (TEL) STLMLC STLMLC [id number] [facility] 2021-10-03 00:00:00 2021-10-03 00:00:00 OFFICE VISIT ESTAB PT LEVEL 4 STLMLC STLMLC [id number] [facility] 2021-08-23 00:00:00 2021-08-23 00:00:00 OFFICE VISIT ESTAB PT LEVEL 4 STLMLC STLMLC [id number] [facility] 2021-06-24 00:00:00 2021-06-24 00:00:00 (TEL) STLMLC STLMLC [id number] [facility] 2021-04-25 00:00:00 2021-04-25 00:00:00 (TEL) STLMLC STLMLC [id number] [facility] 2021-04-25 00:00:00 2021-04-25 00:00:00 OFFICE VISIT ESTAB PT LEVEL 4 STLMLC STLMLC [id number] [facility] 2021-04-25 00:00:00 2021-04-25 00:00:00 SUB ANNUAL [facility] VISIT STLMLC STLMLC [id number] [facility] 2021-04-25 00:00:2021-04-25 00:00:00 (TEL) STLMLC STLMLC [id number] [facility] 2021-02-09 00:00:00 2021-02-09 00:00:00 OFFICE VISIT EST PT LEVEL 3 STLMLC STLMLC [id number] [facility] 2021-02-07 00:00:00 2021-02-07 00:00:00 OFFICE VISIT ESTAB PT LEVEL 1 STLMLC STLMLC [id number] [facility] 2021-02-07 00:00:00 2021-02-07 00:00:00 (TEL) STLMLC STLMLC [id number] [facility] 2021-01-05 00:00:00 2021-01-05 00:00:00 (COVID Inj) COVID Injection STLMLC STLMLC [id number] [facility] 2021-01-03 00:00:00 2021-01-03 00:00:00 (TEL) STLMLC STLMLC [id number] [facility] 2020-12-27 00:00:00 2020-12-27 00:00:00 OFFICE VISIT ESTAB PT LEVEL 4 STLMLC STLMLC [id number] [facility] 2020-10-18 00:00:00 2020-10-18 00:00:00 Outpatient STLMLC STLMLC [id number] [facility] 2020-08-25 00:00:00 2020-08-25 00:00:00 Outpatient STLMLC STLMLC [id number] [facility] 2020-08-25 00:00:00 2020-08-25 00:00:00 Outpatient STLMLC STLMLC [id number] [facility] 2020-08-19 17:58:00 2020-08-19 19:27:00 Emergency Lazarus Molina [facility] [id number] [facility] 2020-08-19 17:40:00 2020-08-19 17:40:00 Emergency X [facility] ERT [id number] [facility] 2020-08-19 00:00:00 2020-08-19 00:00:00 Outpatient STLMLC STLMLC [id number] [facility] 2020-08-16 00:00:00 2020-08-16 00:00:00 Outpatient STLMLC STLMLC [id number] [facility] 2020-04-14 00:00:00 2020-04-14 00:00:00 Outpatient STLMLC STLMLC [id number] [facility] 2020-03-01 00:00:00 2020-03-01 00:00:00 Outpatient STLMLC STLMLC [id number] [facility] 2020-02-26 00:00:00 2020-02-26 00:00:00 Outpatient STLMLC STLMLC [id number] [facility] 2020-02-23 00:00:00 2020-02-23 00:00:00 Outpatient STLMLC STLMLC [id number] [facility] 2020-02-10 00:00:00 2020-02-10 00:00:00 Outpatient STLMLC STLMLC [id number] [facility] 2020-02-03 00:00:00 2020-02-03 00:00:00 Outpatient STLMLC STLMLC [id number] [facility] 2020-01-15 00:00:00 2020-01-15 00:00:00 Outpatient STLMLC STLMLC [id number] [facility] 2020-01-12 00:00:00 2020-01-12 00:00:00 Outpatient STLMLC STLMLC [id number] [facility] 2019-12-25 00:00:00 2019-12-25 00:00:00 Outpatient STLMLC STLMLC [id number] [facility] 2019-12-23 00:00:2019-12-23 00:00:00 Outpatient STLMLC STLMLC [id number] [facility] 2019-10-16 09:30:00 2019-10-16 09:30:[address] [facility] [id number] [facility] 2019-08-01 09:50:00 2019-08-01 09:50:[address] [facility] [id number] [facility] 2019-07-17 10:00:00 2019-07-17 10:00:[address] [facility] [id number] [facility] 2019-07-11 13:24:00 2019-07-11 13:24:[address] [facility] [id number] [facility] 2019-04-16 09:00:00 2019-04-16 09:00:[address] [facility] [id number] [facility] 2019-04-16 08:30:00 2019-04-16 08:30:[address] [facility] [id number] [facility] 2019-03-17 10:00:00 2019-03-17 10:00:[address] [facility] [id number] [facility] 2019-02-14 00:00:00 2019-02-16 00:00:00 Inpatient REBECCA MCCULLOUGH [facility] [id number] 754 [facility] 2019-01-23 11:21:00 2019-01-23 11:21:[address] [facility] [id number] [facility] 2019-01-09 08:15:00 2019-01-09 08:15:[address] [facility] [id number] [facility] 2018-12-31 16:44:00 2018-12-31 16:44:[address] [facility] [id number] [facility] 2018-12-19 10:45:00 2018-12-19 10:45:[address] [facility] [id number] [facility] 2018-10-28 09:30:00 2018-10-28 09:30:[address] [facility] [id number] [facility] 2018-10-21 09:46:00 2018-10-21 09:46:[address] [facility] [id number] [facility] 2018-10-09 14:15:00 2018-10-09 14:15:[address] [facility] [id number] [facility] 2018-10-09 08:30:00 2018-10-09 08:30:[address] [facility] [id number] [facility] 2018-07-19 10:04:00 2018-07-19 10:04:[address] [facility] [id number] [facility] 2018-06-03 09:20:00 2018-06-03 09:20:[address] [facility] [id number] [facility] 2018-05-30 13:00:00 2018-05-30 13:00:[address] [facility] [id number] [facility] 2018-05-01 09:15:00 2018-05-01 09:15:[address] [facility] [id number] [facility] 2018-04-17 10:04:00 2018-04-17 10:04:[address] [facility] [id number] [facility] 2018-04-11 09:45:00 2018-04-11 09:45:00 [facility] [id number] [facility] 2018 08:30:00 2018 08:30:00 [facility] [id number] [facility] 2017-10-02 09:00:00 2017-10-02 09:00:00 [facility] [id number] [facility] 2017-07-19 09:00:00 2017-07-19 09:00:00 Outpatient [facility] [id number] [facility] Results Test Description Test Time Test Comments Results Result Co mments Source CBC W/AUTO [id number] 00:00:00* Test Item Value Reference Range Interpretation Comme nts NUCLEATED RBCS (test code = 24759-3) 0.0 /100 WBC'S See_Comment [Automated messa ge] The system which generated this result transmitted reference range: 0.0 /100 WBC'S. The reference range was not used to interpret this result as normal/abnormal. ABSOLUTE EOSINOPHILS (test code = 90096-8) 0.13 K/UL See_Comment [Automated messa ge] The system which generated this result transmitted reference range: 0.00-0.50 K/UL. The reference range was not used to interpret this result as normal/abnormal. ABSOLUTE LYMPHOCYTES (test code = 93660-8) 1.26 K/UL See_Comment [Automated messa ge] The system which generated this result transmitted reference range: 1.00-4.00 K/UL. The reference range was not used to interpret this result as normal/abnormal. ABSOLUTE MONOCYTES (test code = 54010-0) 0.52 K/UL See_Comment [Automated messa ge] The system which generated this result transmitted reference range: 0.20-1.00 K/UL. The reference range was not used to interpret this result as normal/abnormal. ABSOLUTE NEUTROPHILS (test code = 83416-1) 3.21 K/UL See_Comment [Automated messa ge] The system which generated this result transmitted reference range: 1.50-7.50 K/UL. The reference range was not used to interpret this result as normal/abnormal. BASOPHILS (test code = 33908-5) 1.3 % EOSINOPHILS (test code = 94153-2) 2.5 % HEMATOCRIT (test code = 31450-9) 39.9 % See_Comment [Automated messa ge] The system which generated this result transmitted reference range: 34.0-45.0 %. The reference range was not used to interpret this result as normal/abnormal. HEMOGLOBIN (test code = 718-7) 12.8 G/DL See_Comment [Automated messa ge] The system which generated this result transmitted reference range: 11.5-15.5 G/DL. The reference range was not used to interpret this result as normal/abnormal. LYMPHOCYTES (test code = 54895-5) 24.2 % MCH (test code = 53723-2) 31.0 PG See_Comment [Automated messa ge] The system which generated this result transmitted reference range: 25.0-33.0 PG. The reference range was not used to interpret this result as normal/abnormal. MCHC (test code = 82485-8) 32.1 G/DL See_Comment [Automated messa ge] The system which generated this result transmitted reference range: 31.0-36.0 G/DL. The reference range was not used to interpret this result as normal/abnormal. MCV (test code = 51967-6) 96.6 fL See_Comment [Automated messa ge] The system which generated this result transmitted reference range: 80.0-99.0 fL. The reference range was not used to interpret this result as normal/abnormal. MONOCYTES (test code = 86260-4) 10.0 % NEUTROPHILS (test code = 12862-6) 61.6 % PLATELET COUNT (test code = 71969-8) 189 K/UL See_Comment [Automated messa ge] The system which generated this result transmitted reference range: 130-400 K/UL. The reference range was not used to interpret this result as normal/abnormal. RBC (test code = 15763-7) 4.13 M/UL See_Comment [Automated messa ge] The system which generated this result transmitted reference range: 3.80-5.40 M/UL. The reference range was not used to interpret this result as normal/abnormal. RDW (test code = 28120-9) 13.0 % See_Comment [Automated [employer]] The system which generated this result transmitted reference range: 11.5-15.0 %. The reference range was not used to interpret this result as normal/abnormal. WBC (test code = 07896-4) 5.2 K/UL See_Comment [Automated [employer]] The system which generated this result transmitted reference range: 3.5-11.0 K/UL. The reference range was not used to interpret this result as normal/abnormal. DEXA, BONE DENSITY AXIAL SKELEDEXA, BONE DENSITY AXIAL SKELE
[2024-04-03] MEDS ORDERED: IBUPROFEN 200 MG TAB PO ONE (22:08)
[2024-04-03] MEDS ORDERED: methocarbamoL 500 MG TAB ONE (22:08)
[2024-04-03] MEDS ORDERED: METOCLOPRAMIDE 5 MG TAB ONE (22:08)
[2024-04-03] MEDS ORDERED: IBUPROFEN 400 MG TAB ONE (22:08)
[2024-04-03] MEDS ORDERED: HYDROCODONE/APAP 5/325 MG TAB ONE (22:09)
--- NOTE | 2024-04-03 22:45 | RAD REPORT ---
EXAMINATION: CT HEAD WITHOUT CONTRAST CT CERVICAL SPINE WITHOUT CONTRAST CLINICAL INDICATION: Female, 73 years old. acute fall and head injury TECHNIQUE: Axial CT images from the skull base to the vertex without intravenous contrast. Axial CT i mages through the cervical spine were obtained without intravenous contrast. Sagittal and coronal reformatted images were created from the data set. Coronal and sagittal reformatted images were creat ed from the data set. One or more of the following dose reduction techniques were used: Automated exposure control, adjustment of the mA and/or kV according to patient size, and/or iterative reconstr uction. Unless otherwise specified, incidental findings do not require dedicated imaging follow-up. [id number]. COMPARISON: 10/04/2018 FINDINGS: Head: INTRACRANIAL: No acute intracranial hemorrhage. No hydrocephalus. No mass effect or midline shift. No significant white matter disease. VASCULATURE: No visualized abnormalities in the arteries or dural venous sinuses. SCALP/SKULL: No calvarial fracture identified. Left frontal scalp hematoma. SINUSES: Mucous retention cyst left maxillary sinus. Trace right maxillary sinus. No significant mast oid fluid. Cervical spine: ALIGNMENT: The cervical spine has normal alignment without scoliosis or spondylolisthesis. BONE: Vertebral body heights are maintained. No aggressive osseous lesions. DEGENERATIVE: Multilevel cervical spondylosis with evidence of bilateral neural foraminal narrowing. No high grade central spinal stenosis. SOFT TISSUE: No significant abnormalities in the soft tissue of the neck. The visualized lung apices are clear. IMPRESSION: No acute intracranial abnormality. No acute fracture or traumatic malalignment of the cervical spine.
--- NOTE | 2024-04-03 23:19 | ER ---
Nurse's Notes [facility] Name: Elisabeth Law Age: 73 yrs Sex: Female : 1950 Arrival Date: 04/03/2024 Time: 21:22 Bed 4 Private MD: Diagnosis: Acute left periorbital hematoma, acute left periorbital contusion, Parkinson's disease with gait instability, acute fall at home, closed head injury Presentation: 04/03 21:29 Chief complaint: EMS states: Pt has Parkinson's disease and tripped over her feet bm8 walking in the kitchen. Tripped and fell striking the left side of her face. pt has medium sized hematoma over left eye. Coronavirus screen: At this time, the client does not indicate any symptoms associated with coronavirus-19. Ebola Screen: Patient negative for fever greater than or equal to 101.5 degrees Fahrenheit, and additional compatible Ebola Virus Disease symptoms Patient denies exposure to infectious person. Patient denies travel to an Ebola-affected area in the 21 days before illness onset. No symptoms or risks identified at this time. Initial Sepsis Screen: Does the patient meet any 2 criteria? No. Patient's initial sepsis screen is negative. Does the patient have a suspected source of infection? No. Patient's initial sepsis screen is negative. Risk Assessment: Do you want to hurt yourself or someone else? Patient reports no desire to harm self or others. Onset of symptoms was April 03, 2024 at 20:30. 21:29 Method Of Arrival: EMS: [facility] bm8 21:29 Acuity: SHANA 3 bm8 Triage Assessment: 21:32 General: Appears in no apparent distress. uncomfortable, Behavior is calm, cooperative, bm8 appropriate for age. Pain: Complains of pain in forehead and left yazdanism Pain currently is 7 out of 10 on a pain scale. EENT: No deficits noted. No signs and/or symptoms were reported regarding the EENT system. Neuro: No deficits noted. Level of Consciousness is awake, alert, obeys commands, Oriented to person, place, time, situation, Appropriate for age. Cardiovascular: Denies chest pain, lightheadedness, shortness of breath, Heart tones S1 S2 present Capillary refill < 3 seconds in bilateral fingers Patient's skin is warm and dry. Respiratory: Airway is patent Respiratory effort is even, unlabored, Respiratory pattern is regular, symmetrical, Breath sounds are clear bilaterally. GI: No signs and/or symptoms were reported involving the gastrointestinal system. : No signs and/or symptoms were reported regarding the genitourinary system. Derm: Wound noted forehead and left yazdanism Wound is hematoma Bruising that is dark purple, Reports pain that is 7 out of 10 on a pain scale. Musculoskeletal: Reports pain in face Pain is 7 out of 10 on a pain scale. Historical: - Allergies: 21:32 Codeine; bm8 21:32 Morphine; bm8 - Home Meds: 21:32 Unable to obtain [Active]; bm8 - PMHx: 21:32 diabetes mellitus; Hypertensive disorder; Parkinson's disease; Arthritis; bm8 - PSHx: 21:32 Cholecystectomy; colon resection; bm8 - Immunization history:: Adult Immunizations up to date. - Infectious Disease History:: Denies. - Social history:: Smoking status: Patient denies any tobacco usage or history of. - Family history:: not pertinent. Screenin:[address] [facility] ED Fall Risk Assessment (Adult) History of falling in the last 3 months, dd2 including since admission Yes- fall prone (multiple falls) (3 pts) Confusion or Disorientation No (0 pts) Intoxicated or Sedated No (0 pts) Impaired Gait No (0 pts) Mobility Assist Device Used Yes (1 pt) Altered Elimination No (0 pt) Score/Fall Risk Level 3 or more points = High Risk Oriented to surroundings, Maintained a safe environment, Educated pt \T\ family on fall prevention, incl call for assistance when getting out of bed, Assessed \T\ reinforced patient's understanding of fall precautions, Hourly rounding (assess needs \T\ fall precautionary measures) done, Used ambulatory aids as needed (educated on \T\ assisted with). Abuse screen: Denies threats or abuse. Denies injuries from another. Nutritional screening: No deficits noted. Tuberculosis screening: No symptoms or risk factors identified. Assessment: 22:45 Reassessment: Patient and/or family updated on plan of care and expected duration. Pain dd2 level reassessed. Patient is alert, oriented x 3, equal unlabored respirations, skin warm/dry/pink. Patient states feeling better. Vital Signs: 21:29 BP 162 / 56; Pulse 72; Resp 18; Temp 97.6; Pulse Ox 99% ; Weight 62 kg; Height 5 ft. 3 bm8 in. ; Pain 7/10; 22:02 BP 141 / 43; Pulse 69; Resp 16; Pulse Ox 100% on R/A; Pain 7/10; dd2 23:30 BP 155 / 55; Pulse 72; Resp 16; Temp 97.9(O); Pulse Ox 100% on R/A; Pain 2/10; dd2 21:29 Body Mass Index 24.21 (62.00 kg, 160.02 cm) bm8 21:29 Pain Scale: Adult bm8 22:02 Pain Scale: Adult dd2 23:30 Pain Scale: Adult dd2 [place] Coma Score: 04/04 04:41 Eye Response: spontaneous(4). Motor Response: obeys commands(6). Verbal Response: sp4 oriented(5). Total: 15. ED Course: 04/03 21:25 Patient arrived in ED. jj6 21:29 Bebeto Hoskins, RN is Primary Nurse. bm8 21:32 Triage completed. bm8 21:32 Arm band placed on right wrist. bm8 21:36 Dm Mckeon MD is Attending Physician. sp4 22:18 Patient has correct armband on for positive identification. Bed in low position. Call dd2 light in reach. Side rails up X2. Client placed on continuous cardiac and pulse oximetry monitoring. NIBP monitoring applied. Door closed. Noise minimized. Warm blanket given. Pillow given. Verbal reassurance given. 22:18 No provider procedures requiring assistance completed. Patient did not have IV access dd2 during this emergency room visit. Patient maintains SpO2 saturation greater than 95% on room air. 22:27 CT Head C Spine In Process Unspecified. EDMS 23:30 Provided Education on: D/C EDUCATION. dd2 Administered Medications: 22:17 Drug: HYDROcodone-acetaminophen PO 5 mg-325 mg 1 tabs PO once Route: PO; dd2 22:47 Follow up: Response: No adverse reaction dd2 22:17 Drug: Ibuprofen PO 600 mg PO once Route: PO; dd2 22:47 Follow up: Response: No adverse reaction dd2 22:17 Drug: MetoCLOPramide PO 10 mg PO once Route: PO; dd2 22:47 Follow up: Response: No adverse reaction dd2 22:17 Drug: Methocarbamol PO 500 mg PO once Route: PO; dd2 22:47 Follow up: Response: No adverse reaction dd2 Medication: 23:30 VIS not applicable for this client. dd2 Outcome: 23:18 Discharge ordered by . dominguez 23:30 Discharged to home via wheelchair, with family, dd2 23:30 Condition: stable 23:30 Discharge instructions given to patient, family, Instructed on discharge instructions, follow up and referral plans. medication usage, safety practices, Demonstrated understanding of instructions, follow-up care, Prescriptions given X 2, 23:32 Patient left the ED. dd2 Signatures: Dispatcher [employer] EDMS Sangeeta Garcia jj6 Dm Mckeon MD MD sp4 Beebto Hoskins, REJI RN bm8 DAVI BRITO RN RN dd2
--- NOTE | 2024-04-03 23:19 | EDPHYS ---
Physician Documentation [facility] Name: Elisabeth Law Age: 73 yrs Sex: Female : 1950 Arrival Date: 04/03/2024 Time: 21:22 Bed 4 Private MD: ED Physician Dm Mckeon HPI: 04/03 21:36 This 73 yrs old Female presents to ER via EMS with complaints of Fall Injury, sp4 Head Injury Without LOC-Adult. 04/04 04:41 Patient presents with acute left forehead injury secondary to fall at home. Patient has sp4 history of Parkinson's disease and has history of unsteady gait. Patient stumbled at home fell and injured left forehead left periorbital area. Patient takes p.o. Plavix daily. Historical: - Allergies: 04/03 21:32 Codeine; bm8 21:32 Morphine; bm8 - Home Meds: 21:32 Unable to obtain [Active]; bm8 - PMHx: 21:32 diabetes mellitus; Hypertensive disorder; Parkinson's disease; Arthritis; bm8 - PSHx: 21:32 Cholecystectomy; colon resection; bm8 - Immunization history:: Adult Immunizations up to date. - Infectious Disease History:: Denies. - Social history:: Smoking status: Patient denies any tobacco usage or history of. - Family history:: not pertinent. ROS: 04/04 04:41 Constitutional: Negative for fever, chills, and weight loss, positive head injury, sp4 positive for left periorbital and positive left forehead contusion All other systems are negative, Exam: 04:41 Constitutional: This is a well developed, well nourished patient who is awake, alert, sp4 and in no acute distress. Head/Face: Normocephalic, positive left periorbital contusion, positive left forehead hematoma and contusion, positive small abrasion left forehead Eyes: Pupils equal round and reactive to light, extra-ocular motions intact. Lids and lashes normal. Conjunctiva and sclera are not injected. Cornea within normal limits. Periorbital areas with no swelling, redness, or edema. ENT: Nares patent. No nasal discharge, no septal abnormalities noted. Tympanic membranes are normal and external auditory canals are clear. Oropharynx with no redness, swelling, or masses, exudates, or evidence of obstruction, uvula midline. Mucous membranes moist. Neck: Trachea midline, no thyromegaly or masses palpated, and no cervical lymphadenopathy. Supple, full range of motion without nuchal rigidity, or vertebral point tenderness. Chest/axilla: Normal chest wall appearance and motion. Nontender with no deformity. No lesions are appreciated. Cardiovascular: Regular rate and rhythm with a normal S1 and S2. No gallops, murmurs, or rubs. Normal PMI, no JVD. No pulse deficits. Respiratory: Lungs have equal breath sounds bilaterally, clear to auscultation and percussion. No rales, rhonchi or wheezes noted. No increased work of breathing, no retractions or nasal flaring. Abdomen/GI: Soft, with normal bowel sounds. No distension or tympany. No guarding or rebound. No evidence of tenderness throughout. Back: No spinal tenderness. No costovertebral tenderness. Skin: Warm, dry with normal turgor. Normal color with no rashes, no lesions, and no evidence of cellulitis. MS/ Extremity: Pulses equal, no cyanosis. Neurovascular intact. Full, normal range of motion. Neuro: Awake and alert, GCS 15, oriented to person, place, time, and situation. Cranial nerves II-XII grossly intact. Motor strength 5/5 in all extremities. Sensory grossly intact. Psych: Awake, alert, with orientation to person, place and time. Behavior, mood, and affect are within normal limits Vital Signs: 04/03 21:29 BP 162 / 56; Pulse 72; Resp 18; Temp 97.6; Pulse Ox 99% ; Weight 62 kg; Height 5 ft. 3 bm8 in. ; Pain 7/10; 22:02 BP 141 / 43; Pulse 69; Resp 16; Pulse Ox 100% on R/A; Pain 7/10; dd2 23:30 BP 155 / 55; Pulse 72; Resp 16; Temp 97.9(O); Pulse Ox 100% on R/A; Pain 2/10; dd2 21:29 Body Mass Index 24.21 (62.00 kg, 160.02 cm) bm8 21:29 Pain Scale: Adult bm8 22:02 Pain Scale: Adult dd2 23:30 Pain Scale: Adult dd2 [place] Coma Score: 04/04 04:41 Eye Response: spontaneous(4). Motor Response: obeys commands(6). Verbal Response: sp4 oriented(5). Total: 15. MDM: 04/03 23:16 ED course: EXAMINATION: CT HEAD WITHOUT CONTRAST CT CERVICAL SPINE WITHOUT CONTRAST sp4 CLINICAL INDICATION: Female, 73 years old. acute fall and head injury TECHNIQUE: Axial CT images from the skull base to the vertex without intravenous contrast. Axial CT images through the cervical spine were obtained without intravenous contrast. Sagittal and coronal reformatted images were created from the data set. Coronal and sagittal reformatted images were created from the data set. One or more of the following dose reduction techniques were used: Automated exposure control, adjustment of the mA and/or kV according to patient size, and/or iterative reconstruction. Unless otherwise specified, incidental findings do not require dedicated imaging follow-up. [id number]. COMPARISON: 10/04/2018 FINDINGS: Head: INTRACRANIAL: No acute intracranial hemorrhage. No hydrocephalus. No mass effect or midline shift. No significant white matter disease. VASCULATURE: No visualized abnormalities in the arteries or dural venous sinuses. SCALP/SKULL: No calvarial fracture identified. Left frontal scalp hematoma. SINUSES: Mucous retention cyst left maxillary sinus. Trace right maxillary sinus. No significant mastoid fluid. Cervical spine: ALIGNMENT: The cervical spine has normal alignment without scoliosis or spondylolisthesis. BONE: Vertebral body heights are maintained. No aggressive osseous lesions. DEGENERATIVE: Multilevel cervical spondylosis with evidence of bilateral neural foraminal narrowing. No high grade central spinal stenosis. SOFT TISSUE: No significant abnormalities in the soft tissue of the neck. The visualized lung apices are clear. IMPRESSION: No acute intracranial abnormality. No acute fracture or traumatic malalignment of the cervical spine. . 23:18 Medical Screening Exam initiated sp4 04/04 04:40 Differential diagnosis: abrasion, closed head injury, contusion, fracture, laceration, sp4 multiple trauma, sprain, strain. Data reviewed: vital signs, nurses notes, EMS record, radiologic studies, CT scan. Consideration of Admission/Observation Escalation of care including admission/observation considered. ED course: Patient is ambulatory with assistance. Patient stable for discharge home.. 04/03 21:38 Order name: CT Head C Spine sp4 Administered Medications: 04/03 22:17 Drug: HYDROcodone-acetaminophen PO 5 mg-325 mg 1 tabs PO once Route: PO; dd2 22:47 Follow up: Response: No adverse reaction dd2 22:17 Drug: Ibuprofen PO 600 mg PO once Route: PO; dd2 22:47 Follow up: Response: No adverse reaction dd2 22:17 Drug: MetoCLOPramide PO 10 mg PO once Route: PO; dd2 22:47 Follow up: Response: No adverse reaction dd2 22:17 Drug: Methocarbamol PO 500 mg PO once Route: PO; dd2 22:47 Follow up: Response: No adverse reaction dd2 Disposition: 04/04 04:42 Chart complete. sp4 Disposition Summary: 04/03/24 23:18 Discharge Ordered Notes: Location: Home sp4 Problem: new sp4 Symptoms: have improved sp4 Condition: Stable sp4 Diagnosis - Acute left periorbital hematoma, acute left periorbital contusion, Parkinson's sp4 disease with gait instability, acute fall at home, closed head injury Followup: sp4 - With: Private Physician - When: 7 - 10 days - Reason: Recheck today's complaints Discharge Instructions: - Discharge Summary Sheet sp4 - Head Injury, Adult, [id number] sp4 Forms: - Patient Portal Instructions sp4 Prescriptions: - Tramadol 50 mg Oral tablet - take 1 tablet ORAL route every 8 hours PRN headache; 20 tablet; Refills: 0, sp4 Product Selection Permitted - ondansetron 8 mg Oral Tablet,disintegrating - take 1 tablet ORAL route every 8 hours RPN nausea; 30 tablet; Refills: 0, sp4 Product Selection Permitted Signatures: Dispatcher [employer] Dm Porras MD MD sp4 Bebeto Hoskins RN RN bm8 DAVI BRITO RN RN dd2
[2024-04-03 23:38] VITALS: O2SAT 100
[2024-04-03 23:40] VITALS: BP 155/55; TEMP 97.9
== END 2024-04-03 23:32 | disposition home or self-care (01) ==
LOC: ER 21:22
DX: S00.83XA Contusion of other part of head, initial encounter (principal); G20.B1 Parkinson's disease with dyskinesia, without mention of fluctuations; W18.30XA Fall on same level, unspecified, initial encounter; Y92.009 Unspecified place in unspecified non-institutional (private) residence as the place of occurrence of the external cause; Z79.01 Long term (current) use of anticoagulants
CPT/HCPCS: 70450; 72125; 99284

== ENCOUNTER 2024-04-05 18:35 | Emergency (ER) | payer OTHER ==
--- NOTE | 2024-04-05 19:46 | RAD REPORT ---
EXAMINATION: Head Brain Wo Cont CLINICAL INDICATION: Female, 74 years old.Dizziness;Headache TECHNIQUE: Axial CT images from the skull base to the vertex without intravenous contrast. Coronal an d sagittal reformatted images were created from the data set. One or more of the following dose reduction techniques were used: Automated exposure control, adjustment of the mA and/or kV according to patient size, and/or iterative reconstruction. Unless otherwise specified, incidental findings do not require dedicated imaging follow-up. [id number]. COMPARISON: No prior exam. FINDINGS: INTRACRANIAL: No acute intracranial hemorrhage. No hydrocephalus. No mass effect or midline shift. No significant white matter disease. VASCULATURE: No visualized abnormalities in the arteries or dural venous sinuses. SCALP/SKULL: No calvarial fracture identified. Left forehead hematoma. SINUSES: The visualized paranasal sinuses are mostly clear. No significant mastoid fluid. IMPRESSION: No acute intracranial abnormality.
--- NOTE | 2024-04-05 19:55 | RAD REPORT ---
EXAM: Hand Right 3 View HISTORY: PAIN COMPARISON: None FINDINGS: Bones: No acute fracture identified. Alignment:No significant malalignment. Degenerative changes:Interphalangeal joint space narrowing. Mild MCP joint space narrowing as well. N o erosions identified. Mild degenerative changes are present at the base of the thumb. Other: n/a IMPRESSION: No evidence of acute osseous abnormality involving the imaged hand. Chronic findings.
--- NOTE | 2024-04-05 19:55 | RAD REPORT ---
EXAM: Hand Left 3 View HISTORY: PAIN COMPARISON: None FINDINGS: Bones: No acute fracture identified. Alignment:No significant malalignment. Degenerative changes:Interphalangeal joint space narrowing. Mild MCP joint space narrowing as well. N o erosions identified. Other: n/a IMPRESSION: No evidence of acute osseous abnormality involving the imaged hand. Chronic findings.
[2024-04-05 20:18] LABS: Absolute Basophils 0.1 K/uL (0-0.5); Absolute Eosinophils 0.2 K/uL (0-0.5); Absolute Lymphocytes (CBC) 1.5 K/uL (0.7-4.9); Absolute Monocytes 0.4 K/uL (0.1-1.3); Absolute Neutrophil 3.2 K/uL (1.8-8.0); Basophils % 1.1 % (0-1.3); Eosinophils % 3.5 % (0-4.4); Hemoglobin 13.8 g/dL (12.0-15.0); Lymphocytes % 27.9 % (15.3-44.8); MCH 32.8 pg (27.0-35.0); MCHC 33.6 g/dL (32.0-36.0); MCV 97.6 fL (80-100); Monocytes % 6.9 % (3.3-12.3); Neutrophils % 60.6 % (41.7-73.7); Nucleated Red Blood Cells % 0.4 % (0-0); Platelets 160 thou/uL (152-406); Red Cell Distribution Width 13.6 % (12.1-15.2)
[2024-04-05 20:26] LABS: PT Prothrombin Time 11.9 SECONDS (10.0-13.0); PTT, Activated Partial Thromb 32.4 SECONDS (24.3-36.9); Protime INR 1.05
[2024-04-05 20:34] LABS: Influenza A Ag Negative; Influenza B Ag Negative; SARS-CoV-2 Antigen Rapid Res Negative (Negative)
[2024-04-05 20:37] LABS: AST/SGOT 18 U/L (15-37); Albumin 3.7 g/dL (3.4-5.0); Albumin/Globulin Ratio 0.9 (1.1-1.8); Alkaline Phosphatase 54 U/L (45-117); BUN Blood Urea Nitrogen 15 mg/dL (7-18); Bicarbonate 28 mEq/L (21-32); Bilirubin Direct 0.2 mg/dL (0-0.2); Bilirubin Indirect, Calculated 0.6 mg/dL (0.2-0.8); Bilirubin Total 0.8 mg/dL (0.2-1.0); Globulin 4.2 g/dL (2.3-3.5); Glomerular Filtration Rate 66 ml/min (=/>90); Glucose Level 178 mg/dL (74-106); Magnesium 2.2 mg/dL (1.6-2.4); Protein, Total 7.9 g/dL (6.4-8.2); Sodium Level 138 mEq/L (136-145); Troponin High Sensitivity 6.9 pg/mL (<58.9)
[2024-04-05 20:41] LABS: ALT/SGPT < 14 U/L (13-56)
[2024-04-05] MEDS ORDERED: ONDANSETRON 4 MG/2 ML VIAL ONE (21:22)
[2024-04-05] MEDS ORDERED: NA CHLORIDE 0.9% 500 ML ONE (21:23)
--- NOTE | 2024-04-05 21:31 | ER ---
Nurse's Notes [facility] Name: Elisabeth Law Age: 74 yrs Sex: Female : 1950 Arrival Date: 04/05/2024 Time: 18:35 Bed 20 Private MD: Diagnosis: Dizziness and giddiness Presentation: 04/05 19:01 Chief complaint: Patient's son or daughter states: She fell on the and we came jb4 here. Her scans were fine then but tonight she is saying the back of her head is numb, she feels nauseous, dizzy, like she is going to pass out, and her finger tips are numb. Coronavirus screen: At this time, the client does not indicate any symptoms associated with coronavirus-19. Ebola Screen: No symptoms or risks identified at this time. Initial Sepsis Screen: Does the patient meet any 2 criteria? No. Patient's initial sepsis screen is negative. Does the patient have a suspected source of infection? No. Patient's initial sepsis screen is negative. Risk Assessment: Do you want to hurt yourself or someone else? Patient reports no desire to harm self or others. Onset of symptoms was April 05, 2024. Transition of care: patient was not received from another setting of care. 19:01 Method Of Arrival: Ambulatory jb4 19:01 Acuity: SHANA 3 jb4 Historical: - Allergies: 19:03 Codeine; jb4 19:03 Morphine; jb4 - PMHx: 19:03 Hypertensive disorder; Arthritis; diabetes mellitus; Parkinson's disease; jb4 - PSHx: 19:03 Cholecystectomy; colon resection; Neck (colon resection); Hysterectomy (colon jb4 resection); - Immunization history:: Adult Immunizations up to date. - Infectious Disease History:: Denies. - Social history:: Smoking status: Patient denies any tobacco usage or history of. Screenin:05 [facility] ED Fall Risk Assessment (Adult) History of falling in the last 3 months, ay including since admission Yes- fall prone (multiple falls) (3 pts) Confusion or Disorientation No (0 pts) Intoxicated or Sedated No (0 pts) Impaired Gait No (0 pts) Mobility Assist Device Used Yes (1 pt) Altered Elimination No (0 pt) Score/Fall Risk Level 3 or more points = High Risk Oriented to surroundings, Maintained a safe environment, Educated pt \T\ family on fall prevention, incl call for assistance when getting out of bed. Abuse screen: Denies threats or abuse. Denies injuries from another. Nutritional screening: No deficits noted. Tuberculosis screening: No symptoms or risk factors identified. Assessment: 19:05 General: Appears in no apparent distress. comfortable, Behavior is calm, cooperative. ay Pain: Denies pain. Neuro: Level of Consciousness is awake, alert, obeys commands, Oriented to person, place, time, situation, Adult Ministries Director are equal bilaterally Speech is normal. Cardiovascular: Capillary refill < 3 seconds. Respiratory: Airway is patent Respiratory effort is even, unlabored, Respiratory pattern is regular, symmetrical. GI: Bowel sounds present X 4 quads. Reports nausea. : No signs and/or symptoms were reported regarding the genitourinary system. Vital Signs: 19:00 BP 176 / 52; Pulse 73; Resp 19; Pulse Ox 100% on R/A; ay 19:01 BP 176 / 52; Pulse 74; Resp 16; Temp 97.9(O); Pulse Ox 99% on R/A; Weight 65.77 kg (R); jb4 Height 4 ft. 9 in. ; 19:30 BP 157 / 61; Pulse 75; Resp 16; Pulse Ox 100% on R/A; ay 20:00 BP 156 / 48; Pulse 74; Resp 17; Pulse Ox 96% ; ay 20:25 BP 156 / 50 Supine; ay 20:28 BP 145 / 63 Standing; ay 20:50 BP 167 / 55; Pulse 74; Resp 19; Pulse Ox 97% on R/A; ay 21:45 BP 168 / 54; Pulse 79; Resp 16; Pulse Ox 98% ; ay 19:01 Body Mass Index 31.38 (65.77 kg, 144.78 cm) jb4 [place] Coma Score: 19:05 Eye Response: spontaneous(4). Motor Response: obeys commands(6). Verbal Response: ay oriented(5). Total: 15. ED Course: 18:38 Patient arrived in ED. ts1 18:38 Falgun[facility] Ortiz [facility] kb 18:38 Philipp Dunne MD is Attending Physician. kb 19:03 Triage completed. jb4 19:03 Arm band placed on right wrist. jb4 19:05 Inserted saline lock: 22 gauge in left antecubital area, using aseptic technique. ay 19:10 CT Head Brain wo Cont In Process Unspecified. EDMS 19:49 Hand Right 3 View XRAY In Process Unspecified. EDMS 19:49 Hand Left 3 View XRAY In Process Unspecified. EDMS 20:16 Fitz Tran, RN is Primary Nurse. ay 21:45 IV discontinued, intact, bleeding controlled, No redness/swelling at site. Pressure ay dressing applied. Administered Medications: 21:28 Drug: NS 0.9% IV 500 ml 500 ml IV at 1 bolus once; to be given as a bolus over 30 ay minutes Volume: 500 ml; Route: IV; Rate: 1 bolus; Site: left antecubital; 22:03 Follow up: Response: No adverse reaction; IV Status: Completed infusion ay 21:28 Drug: Ondansetron IVP 4 mg IVP once; over 2 minutes Route: IVP; Site: left antecubital; ay 22:02 Follow up: Response: No adverse reaction ay Outcome: 21:31 Discharge ordered by . kb 21:45 Discharged to home ambulatory, ay 21:45 Condition: stable 21:45 Discharge instructions given to patient, Instructed on discharge instructions, follow up and referral plans. Demonstrated understanding of instructions, follow-up care, 22:03 Patient left the ED. ay Signatures: Dispatcher [employer] EDMS Falguni Ortiz, TRANSPLANT REGISTERED NURSE-C TRANSPLANT REGISTERED NURSE-CkTerence Wang, RN RN Lilly King PAS PAS ts1 Fitz Tran RN RN ay Corrections: (The following items were deleted from the chart) 19:04 19:03 PMHx: Neck (colon resection); sally zavala
--- NOTE | 2024-04-05 21:31 | EDPHYS ---
Physician Documentation [facility] Name: Elisabeth Law Age: 74 yrs Sex: Female : 1950 Arrival Date: 04/05/2024 Time: 18:35 Bed 20 Private MD: ED Physician Philipp Dunne HPI: 04/05 18:43 This 74 yrs old Female presents to ER via Unassigned with complaints of kb Nausea/Vomiting, Dizziness. 18:43 Pt is a 74 year old female who presents for nausea and dizziness that started today. kb States she fell 2 days ago and hit her head, felt ok yesterday, but had the symptoms today. States she hasn't been able to sleep since the fall. Denies vomiting. . Historical: - Allergies: 19:03 Codeine; jb4 19:03 Morphine; jb4 - PMHx: 19:03 Hypertensive disorder; Arthritis; diabetes mellitus; Parkinson's disease; jb4 - PSHx: 19:03 Cholecystectomy; colon resection; Neck (colon resection); Hysterectomy (colon jb4 resection); - Immunization history:: Adult Immunizations up to date. - Infectious Disease History:: Denies. - Social history:: Smoking status: Patient denies any tobacco usage or history of. ROS: 18:43 Constitutional: As per HPI kb Exam: 18:43 Constitutional: This is a well developed, well nourished patient who is awake, alert, kb and in no acute distress. ENT: Moist Mucous membranes Cardiovascular: Regular rate Respiratory: Respirations even and unlabored. No increased work of breathing. Talking in full sentences Abdomen/GI: Soft, non-tender. No distention Skin: Warm, dry with normal turgor. Normal color. Neuro: Awake and alert, GCS 15, oriented to person, place, time, and situation. 18:43 Head/face: Noted is no obvious of injury or deformity except ecchymosis, that is moderate, of the left eye, left side of forehead and left temporal area, 18:51 Musculoskeletal/extremity: Extremities: grossly normal except: noted in the right hand: kb ecchymosis, pain, noted in the left hand: ecchymosis, pain, ROM: intact in all extremities, 21:28 ECG was reviewed by the Attending Physician. kb Vital Signs: 19:00 BP 176 / 52; Pulse 73; Resp 19; Pulse Ox 100% on R/A; ay 19:01 BP 176 / 52; Pulse 74; Resp 16; Temp 97.9(O); Pulse Ox 99% on R/A; Weight 65.77 kg (R); jb4 Height 4 ft. 9 in. ; 19:30 BP 157 / 61; Pulse 75; Resp 16; Pulse Ox 100% on R/A; ay 20:00 BP 156 / 48; Pulse 74; Resp 17; Pulse Ox 96% ; ay 20:25 BP 156 / 50 Supine; ay 20:28 BP 145 / 63 Standing; ay 20:50 BP 167 / 55; Pulse 74; Resp 19; Pulse Ox 97% on R/A; ay 21:45 BP 168 / 54; Pulse 79; Resp 16; Pulse Ox 98% ; ay 19:01 Body Mass Index 31.38 (65.77 kg, 144.78 cm) jb4 [place] Coma Score: 19:05 Eye Response: spontaneous(4). Motor Response: obeys commands(6). Verbal Response: ay oriented(5). Total: 15. MDM: 18:38 Medical Screening Exam initiated kb 21:30 Differential diagnosis: HEAD INJURY, CONCUSSION, ABNORMAL ELECTROLYTES, ARRHYTHMIA, kb DEHYDRATION. Data reviewed: vital signs, nurses notes. Historians other than the Patient: Daughter/Son: daughter. Counseling: I had a detailed discussion with the patient and/or guardian regarding the historical points, exam findings, and any diagnostic results supporting the discharge/admit diagnosis, lab results, radiology results, the need for outpatient follow up, a family practitioner, to return to the emergency department if symptoms worsen or persist or if there are any questions or concerns that arise at home. 04/05 18:49 Order name: Basic Metabolic Panel; Complete Time: 20:53 kb 04/05 18:49 Order name: CBC with Diff; Complete Time: 20:25 kb 04/05 18:49 Order name: Hepatic Function; Complete Time: 20:53 kb 04/05 18:49 Order name: Magnesium; Complete Time: 20:53 kb 04/05 18:49 Order name: Protime (+inr); Complete Time: 20:28 kb 04/05 18:49 Order name: Ptt, Activated; Complete Time: 20:28 kb 04/05 18:49 Order name: Troponin High Sensitivity; Complete Time: 20:53 kb 04/05 18:51 Order name: COVID-19 Ag + Flu A+B Ag; Complete Time: 20:36 kb 04/05 18:51 Order name: Group A Streptococcus Rapid; Complete Time: 20:32 kb 04/05 20:35 Order name: Throat Culture EDOH 04/05 18:49 Order name: CT Head Brain wo Cont; Complete Time: 20:01 kb 04/05 18:51 Order name: Hand Right 3 View XRAY; Complete Time: 20:01 kb 04/05 18:51 Order name: Hand Left 3 View XRAY; Complete Time: 20:01 kb 04/05 18:49 Order name: Cardiac monitoring; Complete Time: 20:17 kb 04/05 18:49 Order name: EKG - Nurse/Tech; Complete Time: 21:28 kb 04/05 18:49 Order name: IV Saline Lock; Complete Time: 20:18 kb 04/05 18:49 Order name: Labs collected and sent; Complete Time: 20:18 kb 04/05 18:49 Order name: NPO; Complete Time: 21:28 kb 04/05 18:49 Order name: O2 Per Protocol; Complete Time: 21:00 kb 04/05 18:49 Order name: O2 Sat Monitoring; Complete Time: 20:18 kb 04/05 18:49 Order name: Orthostatics; Complete Time: 21:27 kb EC:28 Rate is 77 beats/min. Rhythm is regular. QRS [place] is Normal. [place] interval is normal at kb 144 msec. QRS interval is normal at 76 msec. QT interval is normal at 439 msec. Administered Medications: :28 Drug: NS 0.9% IV 500 ml 500 ml IV at 1 bolus once; to be given as a bolus over 30 ay minutes Volume: 500 ml; Route: IV; Rate: 1 bolus; Site: left antecubital; 22:03 Follow up: Response: No adverse reaction; IV Status: Completed infusion ay :28 Drug: Ondansetron IVP 4 mg IVP once; over 2 minutes Route: IVP; Site: left antecubital; ay 22:02 Follow up: Response: No adverse reaction ay Disposition Summary: 04/05/24 21:31 Discharge Ordered Notes: Location: Home kb Condition: Stable kb Diagnosis - Dizziness and giddiness kb Followup: kb - With: Emergency Department - When: As needed - Reason: Worsening of condition Followup: kb - With: Private Physician - When: 2 - 3 days - Reason: Recheck today's complaints, Continuance of care, Re-evaluation by your physician Discharge Instructions: - Discharge Summary Sheet kb - Concussion, Adult, [id number] kb - Dizziness, [id number] kb Forms: - Medication Reconciliation Form kb - Antibiotic Education kb - Prescription Opioid Use kb - Patient Portal Instructions kb - Leadership Thank You Letter kb Signatures: Dispatcher [employer] EDMS Falguni Ortiz, INVESTIGATOR CASH SHORTAGE-C INVESTIGATOR CASH SHORTAGE-Ckb Terence Soliz, RN RN jb4 Fitz Tran, RN RN ay Corrections: (The following items were deleted from the chart) 18:50 18:50 BASIC METABOLIC PANEL+C.LAB.BRZ ordered. EDMS EDMS 18:50 18:50 CBC+H.LAB.BRZ ordered. EDMS EDMS 18:50 18:50 HEPATIC FUNCTION+C.LAB.BRZ ordered. EDMS EDMS 18:50 18:50 MAGNESIUM+C.LAB.BRZ ordered. EDMS EDMS 18:50 18:50 PROTIME (+INR)+COAG.LAB.BRZ ordered. EDMS EDMS 18:50 18:50 PTT, ACTIVATED+COAG.LAB.BRZ ordered. EDMS EDMS 18:50 18:50 Troponin High Sensitivity+C.LAB.BRZ ordered. EDMS EDMS 18:50 18:50 Head Brain Wo Cont+CT.RAD.BRZ ordered. EDMS EDMS 18:51 18:51 Hand Left 3 View+RAD.RAD.BRZ ordered. EDMS EDMS 18:52 18:43 Constitutional: This is a well developed, well nourished patient who is awake, kb alert, and in no acute distress. ENT: Moist Mucous membranes Cardiovascular: Regular rate Respiratory: Respirations even and unlabored. No increased work of breathing. Talking in full sentences Abdomen/GI: Soft, non-tender. No distention Skin: Warm, dry with normal turgor. Normal color. MS/ Extremity: Pulses equal, no cyanosis. Neurovascular intact. Full, normal range of motion. Neuro: Awake and alert, GCS 15, oriented to person, place, time, and situation. kb 19:04 19:03 PMHx: Neck (colon resection); jb4 jb4
[2024-04-05 22:09] VITALS: TEMP 97.9
[2024-04-05 22:19] VITALS: BP 168/54; O2SAT 98
--- NOTE | 2024-04-07 12:08 | EKG ---
Test Date: 2024-04-05 Test Time: 21:14:31 Auto Transmission Mechanic: ROSEY MEASUREMENT RESULTS: Intervals: Rate: 77 WI: 144 QRSD: 76 QT: 388 QTc: 439 [place]: P: 33 WI: 144 QRS: 54 T: 67 INTERPRETIVE STATEMENTS: Normal sinus rhythm Compared to ECG 10/04/2018 13:02:28 ST (T wave) deviation now present T-wave abnormality no longer present Electronically Signed On 04-07-24 12:04:15 DIRECTOR OF LAND ACQUISITION by Chauncey Porras
== END 2024-04-05 22:03 | disposition home or self-care (01) ==
LOC: ER 18:35
DX: R42 Dizziness and giddiness (principal); R11.0 Nausea; I10 Essential (primary) hypertension; G20.A1 Parkinson's disease without dyskinesia, without mention of fluctuations; Z11.52 Encounter for screening for COVID-19
CPT/HCPCS: 96361; 87070; 85025; 80048; 36415; 83735; 85610; 80076; 85730; 84484; 70450; 73130 ×2; 96374; 99284; 87428; J2405; J7040; 93005

== ENCOUNTER 2024-06-19 20:23 | Emergency (ER) | payer OTHER ==
--- NOTE | 2024-06-19 22:31 | RAD REPORT ---
EXAM: CT Head Brain Wo Cont HISTORY: TRAUMA COMPARISON: None TECHNIQUE: Multiple contiguous axial images were obtained for a CT of the brain without contrast. Sag ittal and coronal reformats were performed. One or more of the following dose reduction techniques were used: Automated exposure control, adjus tment of the mA and kV according to patient size, and iterative reconstruction. Unless otherwise specified, incidental findings do not require dedicated imaging follow-up. FINDINGS: No evidence of hydrocephalus, intracranial hemorrhage, or extra-axial fluid collection. The brain is normal in morphology. The calvarium is intact. Mild right frontal scalp swelling. The visualized paranasal sinuses and mast oid air cells are essentially clear. IMPRESSION: No evidence of acute intracranial abnormality. Mild right frontal scalp swelling.
--- NOTE | 2024-06-19 22:35 | EDPHYS ---
Physician Documentation [facility] Name: Elisabeth Law Age: 74 yrs Sex: Female : 1950 Arrival Date: 06/19/2024 Time: 20:23 Bed 16 Private MD: ED Physician Anjelica Olsen HPI: 06/19 21:07 This 74 yrs old Female presents to ER via Wheelchair with complaints of Head gb1 Injury-Adult. 21:40 I have a video I have any help with practice she 74-year-old female that was walking gb1 from her garage into her laundry room tripped and had a mechanical fall and fell. She did not lose consciousness or faints. She is on Plavix. She has history of arthritis, diabetes, hypertension and Parkinson disease. She has a small abrasion on her right front forehead. She denies any pain elsewhere.. Historical: - Allergies: 20:53 Codeine; cm10 20:53 Morphine; cm10 - Home Meds: 20:53 amlodipine 10 mg oral tablet [Active]; rosuvastatin 10 mg oral tablet [Active]; cm10 carvedilol 12.5 mg oral tablet [Active]; ranolazine 500 mg oral Tablet, Extended Release 12 hr [Active]; carbidopa-levodopa 25-100 mg Oral tablet [Active]; amantadine HCl 100 mg Oral tablet [Active]; memantine 10 mg oral tablet [Active]; pramipexole 0.5 mg oral tablet [Active]; aspirin 81 mg Oral tablet [Active]; - PMHx: 20:53 Arthritis; diabetes mellitus; Hypertensive disorder; Parkinson's disease; cm10 - PSHx: 20:53 Cholecystectomy; colon resection; hysterectomy (re); neck (re); cm10 - Immunization history:: Adult Immunizations up to date. - Infectious Disease History:: Denies. - Social history:: Smoking status: Patient denies any tobacco usage or history of. Exam: 21:40 Constitutional: This is a well developed, well nourished patient who is awake, alert, gb1 and in no acute distress. Head/Face: Normocephalic, right-sided frontal hematoma, mildly tender to touch. Eyes: Pupils equal round and reactive to light, extra-ocular motions intact. Lids and lashes normal. Conjunctiva and sclera are non-icteric and not injected. Cornea within normal limits. Periorbital areas with no swelling, redness, or edema. ENT: Nares patent. No nasal discharge, no septal abnormalities noted. Tympanic membranes are normal and external auditory canals are clear. Oropharynx with no redness, swelling, or masses, exudates, or evidence of obstruction, uvula midline. Mucous membranes moist. Neck: Trachea midline, no thyromegaly or masses palpated, and no cervical lymphadenopathy. Supple, full range of motion without nuchal rigidity, or vertebral point tenderness. No Meningismus. Chest/axilla: Normal chest wall appearance and motion. Nontender with no deformity. No lesions are appreciated. Cardiovascular: Regular rate and rhythm with a normal S1 and S2. No gallops, murmurs, or rubs. Normal PMI, no JVD. No pulse deficits. Respiratory: Lungs have equal breath sounds bilaterally, clear to auscultation and percussion. No rales, rhonchi or wheezes noted. No increased work of breathing, no retractions or nasal flaring. Abdomen/GI: Soft, non-tender, with normal bowel sounds. No distension or tympany. No guarding or rebound. No evidence of tenderness throughout. Skin: Warm, dry with normal turgor. Normal color with no rashes, no lesions, and no evidence of cellulitis. MS/ Extremity: Pulses equal, no cyanosis. Neurovascular intact. Full, normal range of motion. Neuro: Awake and alert, GCS 15, oriented to person, place, time, and situation. Cranial nerves II-XII grossly intact. Motor strength 5/5 in all extremities. Sensory grossly intact. Cerebellar exam normal. Normal gait. Vital Signs: 20:52 BP 135 / 47; Pulse 65; Resp 16; Temp 97.8(O); Pulse Ox 99% on R/A; Weight 66.68 kg; cm10 Height 4 ft. 9 in. ; Pain 0/10; 21:00 BP 135 / 49; Pulse 98; Resp 18; Temp 98; Pulse Ox 99% on R/A; Pain 0/10; rg5 22:30 BP 123 / 58; Pulse 69; Resp 18; Pulse Ox 99% on R/A; Pain 0/10; rg5 23:00 BP 123 / 57; Pulse 65; Resp 18; Pulse Ox 100% on R/A; rg5 20:52 Body Mass Index 31.81 (66.68 kg, 144.78 cm) cm10 20:52 Pain Scale: Adult cm10 21:00 Pain Scale: Adult rg5 22:30 Pain Scale: Adult rg5 [place] Coma Score: 21:00 Eye Response: spontaneous(4). Motor Response: obeys commands(6). Verbal Response: rg5 oriented(5). Total: 15. MDM: 20:52 Medical Screening Exam initiated gb1 21:40 Data reviewed: vital signs, nurses notes, radiologic studies, CT scan. gb1 22:32 ED course: CT brain shows no acute intracranial findings other than the right frontal gb1 hematoma that is on physical exam. Plan to discharge her home with return precautions upon discharge.. 06/19 21:06 Order name: CT Head Brain wo Cont; Complete Time: 22:32 gb1 Administered Medications: No medications were administered Disposition Summary: 06/19/24 23:28 Discharge Ordered Notes: Location: Home(06/19/24 23:28) gb1 Condition: Stable(06/19/24 23:28) gb1 Diagnosis - Fall on same level, unspecified(06/19/24 23:28) gb1 Followup: gb1 - With: Private Physician - When: - Reason: Recheck today's complaints Discharge Instructions: - Discharge Summary Sheet gb1 - Fall Prevention in the Home, Adult, [id number] gb1 Forms: - Medication Reconciliation Form gb1 - Antibiotic Education gb1 - Prescription Opioid Use gb1 - Patient Portal Instructions gb1 - Leadership Thank You Letter gb1 Signatures: Dispatcher [employer] Jayne Son, RN RN cm10 Anjelica Olsen MD MD gb1 Corrections: (The following items were deleted from the chart) 21:06 21:06 Head Brain Wo Cont+CT.RAD.BRZ ordered. EDMS EDMS 22:50 22:34 Home gb1 gb1 22:50 22:34 new gb1 gb1 22:50 22:34 are unchanged gb1 gb1 22:50 22:34 Stable gb1 gb1 22:50 22:34 Fall on same level, unspecified gb1 gb1 22:50 22:34 Abrasion of unspecified part of head gb1 gb1 23:27 22:51 Law Enforcement gb1 gb1 22:51 Stable gb1 gb1 22:51 Alcohol abuse with intoxication, unspecified gb1 gb1
--- NOTE | 2024-06-19 22:35 | ER ---
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 PT states that she was cm10 walking and fell forward. Pt reports hitting head on concrete floor. NO LOC. Coronavirus screen: Client denies travel out of the [place] in the last 14 days. Ebola Screen: Patient denies travel to an Ebola-affected area in the 21 days before illness onset. Initial Sepsis Screen: Does the patient meet any 2 criteria? No. Patient's initial sepsis screen is negative. Does the patient have a suspected source of infection? No. Patient's initial sepsis screen is negative. Risk Assessment: Do you want to hurt yourself or someone else? Patient reports no desire to harm self or others. Onset of symptoms was June 19, 2024. 20:52 Method Of Arrival: Wheelchair cm10 20:52 Acuity: SHANA 3 cm10 21:00 Mechanism of Injury: resulted from a fall, from a standing position. 5 Triage Assessment: 20:56 General: Appears in no apparent distress. comfortable, Behavior is calm, cooperative. cm10 Pain: Denies pain. Neuro: No deficits noted. Level of Consciousness is awake, alert, obeys commands, Oriented to person, place, time, situation, Appropriate for age. Respiratory: No deficits noted. Airway is patent Respiratory effort is even, unlabored, Respiratory pattern is regular, symmetrical. 21:00 Neuro: Reports headache. rg5 Historical: - Allergies: 20:53 Codeine; cm10 20:53 Morphine; cm10 - Home Meds: 20:53 amlodipine 10 mg oral tablet [Active]; rosuvastatin 10 mg oral tablet [Active]; cm10 carvedilol 12.5 mg oral tablet [Active]; ranolazine 500 mg oral Tablet, Extended Release 12 hr [Active]; carbidopa-levodopa 25-100 mg Oral tablet [Active]; amantadine HCl 100 mg Oral tablet [Active]; memantine 10 mg oral tablet [Active]; pramipexole 0.5 mg oral tablet [Active]; aspirin 81 mg Oral tablet [Active]; - PMHx: 20:53 Arthritis; diabetes mellitus; Hypertensive disorder; Parkinson's disease; cm10 - PSHx: 20:53 Cholecystectomy; colon resection; hysterectomy (re); neck (re); cm10 - Immunization history:: Adult Immunizations up to date. - Infectious Disease History:: Denies. - Social history:: Smoking status: Patient denies any tobacco usage or history of. Screenin:00 [facility] ED Fall Risk Assessment (Adult) History of falling in the last 3 months, rg5 including since admission Yes- single mechanical fall (1 pt) Confusion or Disorientation No (0 pts) Intoxicated or Sedated No (0 pts) Impaired Gait Yes (1 pt) Mobility Assist Device Used Yes (1 pt) Altered Elimination No (0 pt) Score/Fall Risk Level 3 or more points = High Risk Oriented to surroundings, Maintained a safe environment, Hourly rounding (assess needs \T\ fall precautionary measures) done. 21:00 Abuse screen: Denies threats or abuse. Nutritional screening: No deficits noted. rg5 Tuberculosis screening: No symptoms or risk factors identified. Assessment: 21:00 General: Appears in no apparent distress. comfortable, Behavior is calm, cooperative, rg5 appropriate for age. Pain: Denies pain. Neuro: Level of Consciousness is awake, alert, obeys commands, Oriented to person, place, time, situation. Cardiovascular: Denies chest pain, Patient's skin is warm and dry. Respiratory: Airway is patent Trachea midline. GI: No signs and/or symptoms were reported involving the gastrointestinal system. : No signs and/or symptoms were reported regarding the genitourinary system. EENT: No signs and/or symptoms were reported regarding the EENT system. Derm: Skin is intact, Skin is dry, Skin is normal, Skin temperature is warm. Musculoskeletal: Circulation, motion, and sensation intact. Range of motion: intact in all extremities. 22:00 Reassessment: No changes from previously documented assessment. Patient and/or family rg5 updated on plan of care and expected duration. Pain level reassessed. Patient is alert, oriented x 3, equal unlabored respirations, skin warm/dry/pink. 23:00 Reassessment: No changes from previously documented assessment. Patient and/or family rg5 updated on plan of care and expected duration. Pain level reassessed. Patient is alert, oriented x 3, equal unlabored respirations, skin warm/dry/pink. Vital Signs: 20:52 BP 135 / 47; Pulse 65; Resp 16; Temp 97.8(O); Pulse Ox 99% on R/A; Weight 66.68 kg; cm10 Height 4 ft. 9 in. ; Pain 0/10; 21:00 BP 135 / 49; Pulse 98; Resp 18; Temp 98; Pulse Ox 99% on R/A; Pain 0/10; rg5 22:30 BP 123 / 58; Pulse 69; Resp 18; Pulse Ox 99% on R/A; Pain 0/10; rg5 23:00 BP 123 / 57; Pulse 65; Resp 18; Pulse Ox 100% on R/A; rg5 20:52 Body Mass Index 31.81 (66.68 kg, 144.78 cm) cm10 20:52 Pain Scale: Adult cm10 21:00 Pain Scale: Adult rg5 22:30 Pain Scale: Adult rg5 [place] Coma Score: 21:00 Eye Response: spontaneous(4). Motor Response: obeys commands(6). Verbal Response: rg5 oriented(5). Total: 15. ED Course: 20:25 Patient arrived in ED. im 20:43 Anjelica Olsen MD is Attending Physician. gb1 20:53 Triage completed. cm10 20:56 Arm band placed on right wrist. Patient placed in waiting room, Patient notified of cm10 wait time. 21:00 Patient has correct armband on for positive identification. rg5 21:00 No provider procedures requiring assistance completed. Patient did not have IV access rg5 during this emergency room visit. 21:06 Boy Flynn, REJI is Primary Nurse. rg5 22:11 CT Head Brain wo Cont In Process Unspecified. EDMS 23:00 Provided Education on: post er care. rg5 Administered Medications: No medications were administered Medication: 21:00 VIS not applicable for this client. rg5 Outcome: 22:34 Discharge ordered by . gb1 22:51 Discharge ordered by . gb1 23:28 Discharge ordered by MD. gb1 23:34 Discharged to home rg5 23:34 Condition: stable rg5 23:34 Instructed on discharge instructions, Demonstrated understanding of instructions, 23:36 Patient left the ED. rg5 Signatures: Dispatcher [employer] EDMS Svetlana Mcgrath Clarissa RN RN cm10 Anjelica Olsen MD MD gb1 Boy Flynn RN RN rg5
[2024-06-19 23:57] VITALS: TEMP 98
[2024-06-20 00:16] VITALS: BP 123/57; O2SAT 100
== END 2024-06-19 23:36 | disposition home or self-care (01) ==
LOC: ER 20:23
DX: S00.81XA Abrasion of other part of head, initial encounter (principal); W18.30XA Fall on same level, unspecified, initial encounter; E11.9 Type 2 diabetes mellitus without complications; I10 Essential (primary) hypertension; G20.A1 Parkinson's disease without dyskinesia, without mention of fluctuations; Z79.01 Long term (current) use of anticoagulants; Z79.82 Long term (current) use of aspirin
CPT/HCPCS: 70450; 99283

== ENCOUNTER 2024-10-03 03:17 | Emergency (ER) | payer OTHER ==
[2024-10-03] MEDS ORDERED: ONDANSETRON 4 MG/2 ML VIAL ONE (03:42)
[2024-10-03] MEDS ORDERED: NA CHLORIDE 0.9% 500 ML ONE (03:43)
[2024-10-03] MEDS ORDERED: FENTANYL CITR 100 MCG/2 ML ONE ×2 (03:43→04:47)
[2024-10-03 04:06] LABS: Absolute Lymphocytes (CBC) 1.3 K/uL (0.7-4.9); Hematocrit 41.4 % (36.0-45.0); Hemoglobin 14.0 g/dL (12.0-15.0); MCH 32.8 pg (27.0-35.0); MCHC 33.7 g/dL (32.0-36.0); MCV 97.2 fL (80-100); MPV 7.9 fL (7.6-11.3); Nucleated RBC Absolute Count 0.0 (0-0); Nucleated Red Blood Cells % 0.2 % (0-0); RBC Red Blood Cell Count 4.26 M/uL (3.86-4.86); White Blood Count 8.00 thou/uL (4.3-10.9)
[2024-10-03 04:07] LABS: PT Prothrombin Time 11.7 SECONDS (10-13.0); Protime INR 1.04
[2024-10-03 04:21] LABS: ALT/SGPT 28 U/L (13-56); Albumin 4.1 g/dL (3.4-5.0); Albumin/Globulin Ratio 1.1 (1.1-1.8); Alkaline Phosphatase 57 U/L (45-117); Anion Gap 10.1 mEq/L (5.0-15.0); BUN Blood Urea Nitrogen 31 mg/dL (7-18); Bilirubin Indirect, Calculated 0.4 mg/dL (0.2-0.8); Globulin 3.6 g/dL (2.3-3.5); Glucose Level 138 mg/dL (74-106); Magnesium 2.2 mg/dL (1.6-2.4); NT PRO-BNP 242 pg/mL (<450); Potassium 4.1 mEq/L (3.5-5.1); Troponin High Sensitivity 10.9 pg/mL (<58.9)
[2024-10-03 04:26] LABS: AST/SGOT < 10 U/L (15-37)
[2024-10-03 04:30] LABS: Thyroid Stimulating Hormone 4.98 uIU/mL (0.358-3.740)
[2024-10-03] MEDS ORDERED: PROMETHAZINE 25 MG TABLET ONE (04:47)
--- NOTE | 2024-10-03 06:07 | RAD REPORT ---
EXAM: XR Chest 1 View AP HISTORY: chest pain COMPARISON: Chest 1 View AP 11/03/2023 report without image TECHNIQUE: Chest 1 View AP FINDINGS: Trachea midline. Mild, calcified, aortic arch atherosclerotic plaque. Heart size and pulmonary vessels within normal limits. Lungs clear without evidence of consolidation, mass, or significant pulmonary edema. No significant pleural effusion or pneumothorax. Thoracic spine degenerative disease. Mild bilateral acromioclavicular DJD. IMPRESSION: Unremarkable chest radiograph for patient's age. Electronically signed by: Bobby Smith MD 10/03/2024 04:56 AM CDT RP Due to temporary technical issues with the PACS[employer] reporting system, reports are being dustin d by the in-house radiologist without review as a courtesy to ensure prompt reporting the interpreting radiologist is fully responsible for the content of the report. Transcribed Date/Time: 10/03/2024 6:07 AM
--- NOTE | 2024-10-03 07:02 | RAD REPORT ---
CLINICAL HISTORY: Confusion. COMPARISON: CT Head 06/19/2024. TECHNIQUE: CT HEAD WITHOUT IV CONTRAST on 10/03/2024 3:33 AM CDT This exam was performed according to our departmental dose-optimization program, which includes autom ated exposure control, adjustment of the mA and/or kV according to patient size and/or use of iterative reconstruction technique. FINDINGS: There is no acute hemorrhage, mass effect or midline shift. [place]coran-white differentiation is preserved. There is no hydrocephalus. There is no significant volume loss for age. The calvarium is intact. Orbits and globes are unremarkable. The paranasal sinuses are clear. Mastoid air cells are clear. IMPRESSION: No acute intracranial findings. Electronically signed by: Yariel Davidson MD 10/03/2024 06:58 AM CDT Due to temporary technical issues with the PACS/[employer] reporting system, reports are being dustin d by the in-house radiologist without review as a courtesy to ensure prompt reporting the interpreting radiologist is fully responsible for the content of the report. Transcribed Date/Time: 10/03/2024 7:02 AM
--- NOTE | 2024-10-03 07:04 | RAD REPORT ---
CLINICAL HISTORY: Chest pain. COMPARISON: XR Chest 10/03/2024. TECHNIQUE: CT CHEST ANGIOGRAPHY WITH IV CONTRAST on 10/03/2024 3:34 AM CDT. MIPS reconstructions were generated. This exam was performed according to our departmental dose-optimization program, which includes autom ated exposure control, adjustment of the mA and/or kV according to patient size and/or use of iterative reconstruction technique. MIP images were generated. FINDINGS: Thoracic aorta is normal in course and caliber without aneurysm or dissection. Pulmonary arteries are adequately opacified without acute or chronic filling defects. The heart is normal in size. There is no pericardial effusion. Intrathoracic lymph nodes are not enla rged. There is no pleural effusion, pleural thickening or pneumothorax. Central airways are patent. Lungs a re clear with no consolidation, mass or interstitial lung disease. There are no acute abnormalities within the limited images of the upper abdomen. There are no acute osseous findings. No suspicious bony lesions. IMPRESSION: No aortic dissection or aneurysm. No pulmonary embolus. No pneumonia. Electronically signed by: Yariel Davidson MD 10/03/2024 07:00 AM CDT RP Due to temporary technical issues with the [email or web address] reporting system, reports are being dustin d by the in-house radiologist without review as a courtesy to ensure prompt reporting the interpreting radiologist is fully responsible for the content of the report. Transcribed Date/Time: 10/03/2024 7:04 AM
--- NOTE | 2024-10-03 07:53 | ER ---
Nurse's Notes [facility] Name: Elisabeth Law Age: 74 yrs Sex: Female : 1950 Arrival Date: 10/03/2024 Time: 03:17 Bed 5 Private MD: Domenic Delgado Diagnosis: Chest pain, unspecified Presentation: 10/03 03:29 Chief complaint: Patient states: chest pain, right shoulder/arm pain, and neck pain cp4 that has been getting worse over the last month. 03:29 Method Of Arrival: Ambulatory cp4 03:30 Acuity: SHANA 3 zm 03:30 Coronavirus screen: Client denies travel out of the [place] in the last 14 days. At this zm time, the client does not indicate any symptoms associated with coronavirus-19. Ebola Screen: No symptoms or risks identified at this time. Initial Sepsis Screen: Does the patient meet any 2 criteria? No. Patient's initial sepsis screen is negative. Does the patient have a suspected source of infection? No. Patient's initial sepsis screen is negative. Risk Assessment: Do you want to hurt yourself or someone else? Patient reports no desire to harm self or others. Onset of symptoms is unknown. Triage Assessment: 03:31 General: Appears in no apparent distress. uncomfortable, Behavior is calm, cooperative, cp4 appropriate for age. Pain: Complains of pain in chest and right arm Historical: - Allergies: 03:31 Codeine; cp4 03:31 Morphine; cp4 - Home Meds: 03:31 amantadine HCl 100 mg Oral tablet [Active]; amlodipine 10 mg tablet [Active]; aspirin cp4 81 mg Oral tablet [Active]; carbidopa-levodopa 25-100 mg Oral tablet [Active]; carvedilol 12.5 mg Oral tablet [Active]; clopidogrel 75 mg Oral tablet 1 tab daily [Active]; memantine 10 mg Oral tablet [Active]; pramipexole 0.5 mg Oral tablet [Active]; ranolazine 500 mg Oral tablet [Active]; rosuvastatin 10 mg Oral tablet [Active]; - PMHx: 03:31 Arthritis; diabetes mellitus; Hypertensive disorder; Parkinson's disease; cp4 - PSHx: 03:31 Cholecystectomy; colon resection; hysterectomy; neck; cp4 - Immunization history:: Adult Immunizations up to date. - Infectious Disease History:: Denies. - Social history:: Smoking status: Patient denies any tobacco usage or history of. - Family history:: not pertinent. Screenin:59 [facility] ED Fall Risk Assessment (Adult) History of falling in the last 3 months, zm including since admission No falls in past 3 months (0 pts) Confusion or Disorientation No (0 pts) Intoxicated or Sedated No (0 pts) Impaired Gait No (0 pts) Mobility Assist Device Used No (0 pt) Altered Elimination No (0 pt) Score/Fall Risk Level 0 - 2 = Low Risk Oriented to surroundings, Maintained a safe environment, Educated pt \T\ family on fall prevention, incl call for assistance when getting out of bed, Assessed \T\ reinforced patient's understanding of fall precautions, Hourly rounding (assess needs \T\ fall precautionary measures) done, Used ambulatory aids as needed (educated on \T\ assisted with), Used gait belt as appropriate. Abuse screen: Denies threats or abuse. Nutritional screening: No deficits noted. Tuberculosis screening: No symptoms or risk factors identified. Assessment: 03:59 General: Appears in no apparent distress. uncomfortable, Behavior is calm, cooperative. zm Pain: Complains of pain in base of the skull Pain currently is 8 out of 10 on a pain scale. Neuro: No deficits noted. Level of Consciousness is awake, alert, obeys commands, Oriented to person, place, time, situation. Cardiovascular: No deficits noted. Capillary refill < 3 seconds in bilateral fingers. Respiratory: No deficits noted. Airway is patent Respiratory effort is even, unlabored, Respiratory pattern is regular, symmetrical. GI: No deficits noted. No signs and/or symptoms were reported involving the gastrointestinal system. : No deficits noted. No signs and/or symptoms were reported regarding the genitourinary system. EENT: No deficits noted. No signs and/or symptoms were reported regarding the EENT system. Derm: No deficits noted. No signs and/or symptoms reported regarding the dermatologic system. Musculoskeletal: Capillary refill < 3 seconds, in bilateral fingers. 04:56 Reassessment: Patient appears in no apparent distress at this time. Patient and/or zm family updated on plan of care and expected duration. Pain level reassessed. Patient is alert, oriented x 3, equal unlabored respirations, skin warm/dry/pink. Pain: Pain currently is 7 out of 10 on a pain scale. 06:00 Reassessment: pt up to restroom. bm8 06:40 Reassessment: Patient appears in no apparent distress at this time. Patient and/or bm8 family updated on plan of care and expected duration. Pain level reassessed. Patient is alert, oriented x 3, equal unlabored respirations, skin warm/dry/pink. Patient states feeling better. Patient states symptoms have improved. Vital Signs: 03:31 BP 184 / 59; Pulse 72; Resp 18; Temp 98; Pulse Ox 98% ; Weight 68.04 kg; Height 4 ft. 9 cp4 in. ; Pain 6/10; 04:56 BP 165 / 60; Pulse 71; Resp 16; Pulse Ox 99% on R/A; Pain 7/10; zm 06:40 BP 155 / 68; Pulse 78; Resp 17; Temp 98; Pulse Ox 100% ; Pain 2/10; bm8 07:27 BP 158 / 63; Pulse 76; Resp 16 S; Pulse Ox 99% on R/A; aa5 08:16 BP 159 / 61; Pulse 75; Resp 16; Pulse Ox 99% ; nh2 03:31 Body Mass Index 32.46 (68.04 kg, 144.78 cm) cp4 03:31 Pain Scale: Adult cp4 04:56 Pain Scale: Adult zm 06:40 Pain Scale: Adult bm8 [place] Coma Score: 03:35 Eye Response: spontaneous(4). Motor Response: obeys commands(6). Verbal Response: sp4 oriented(5). Total: 15. 03:59 Eye Response: spontaneous(4). Motor Response: obeys commands(6). Verbal Response: zm oriented(5). Total: 15. 04:56 Eye Response: spontaneous(4). Motor Response: obeys commands(6). Verbal Response: zm oriented(5). Total: 15. 06:40 Eye Response: spontaneous(4). Motor Response: obeys commands(6). Verbal Response: bm8 oriented(5). Total: 15. NIH Stroke Scale Scores: 03:38 NIHSS Score: 0 sp4 ED Course: 03:19 Patient arrived in ED. jj6 03:19 Domenic Delgado DO is Private Physician. jj6 03:21 Dm Mckeon MD is Attending Physician. sp4 03:31 Arm band placed on right wrist. Patient placed in waiting room. cp4 03:39 Cande Acuña, RN is Primary Nurse. zm 03:50 T4 Free Sent. cc6 03:50 TSH Sent. cc6 03:50 Basic Metabolic Panel Sent. cc6 03:50 CBC with Diff Sent. cc6 03:50 LFT's Sent. cc6 03:50 Magnesium Sent. cc6 03:50 NT PRO-BNP Sent. cc6 03:50 PT-INR Sent. cc6 03:50 Troponin HS Sent. cc6 03:50 Inserted saline lock: 22 gauge in right antecubital area, using aseptic technique. cc6 Blood collected. Flushed with 10 mL NS. 03:59 Patient has correct armband on for positive identification. Bed in low position. Call zm light in reach. Side rails up X2. Client placed on continuous cardiac and pulse oximetry monitoring. NIBP monitoring applied. color television console monitor on. Pulse ox on. NIBP on. Door closed. Noise minimized. Lights dimmed. Warm blanket given. Pillow given. Verbal reassurance given. Head of bed lowered. 03:59 EKG done, by ED staff, reviewed by Dm Mckeon MD. zm 04:05 XRAY Chest (1 view) In Process Unspecified. EDMS 05:04 Triage completed. zm 05:45 CT Head Brain wo Cont In Process Unspecified. EDMS 05:45 CT Chest For PE Angio In Process Unspecified. EDMS 07:07 Report given to Tiffanie Hernandez and REJI Stone. bm8 07:52 Yesenia Dodd MD is Referral Physician. sp4 08:15 No provider procedures requiring assistance completed. IV discontinued, intact, nh2 bleeding controlled, No redness/swelling at site. Pressure dressing applied. 08:16 Provided Education on: following up with width stripper. nh2 Administered Medications: 03:53 Drug: Ondansetron IVP 4 mg IVP once; over 2 minutes Route: IVP; Site: right antecubital;zm 04:55 Follow up: Response: No adverse reaction zm 03:53 Drug: NS 0.9% IV 500 ml 500 ml IV at 1 bolus once; to be given as a bolus over 30 zm minutes Volume: 500 ml; Route: IV; Rate: 1 bolus; Site: right antecubital; 04:55 Follow up: Response: No adverse reaction; IV Status: Completed infusion zm 03:54 Drug: fentaNYL (PF) IVP 25 mcg IVP once Route: IVP; Site: right antecubital; zm 04:55 Follow up: Response: No adverse reaction zm 04:55 Drug: fentaNYL (PF) IVP 25 mcg IVP once Route: IVP; Site: right antecubital; zm 06:43 Follow up: Response: No adverse reaction bm8 04:55 Drug: Promethazine PO 25 mg PO once Route: PO; zm 06:43 Follow up: Response: No adverse reaction bm8 Medication: 03:59 VIS not applicable for this client. zm Outcome: 07:52 Discharge ordered by MD. mix 08:15 Discharged to home ambulatory, with significant other, [facility] 08:15 Condition: good 08:15 Discharge instructions given to patient, significant other, Instructed on discharge instructions, follow up and referral plans. Demonstrated understanding of instructions, follow-up care, 08:16 Patient left the ED. nh2 NIH Stroke Scale - NIH Stroke Score Date: 10/03/2024 Time: 03:38 Total Score = 0 10. Dysarthria (speech clarity - read or repeat words) - 0(Normal) 11. Extinction and Inattention (visual/tactile/auditory/spatial/personal) - 0(No abnormality) 1a. Level of Consciousness (LOC) - 0(Alert) 1b. Level of Consciousness (LOC) (Month \T\ Age) - 0(Both) 1c. LOC Commands (Open \T\ Closes Eyes/[place]) - 0(Both) 2. Best Gaze (Lateral Gaze Paresis) - 0(Normal) 3. Visual Field Loss - 0(No visual loss) 4. Facial Palsy - 0(Normal) 5a. Left Arm: Motor (10-second hold) - 0(No drift) 5b. Right Arm: Motor (10-second hold) - 0(No drift) 6a. Left Leg: Motor (5-second hold - always test supine) - 0(No drift) 6b. Right Leg: Motor (5-second hold - always test supine) - 0(No drift) 7. Limb Ataxia (finger/nose \T\ heel/godoy - test with eyes open) - 0(Absent) 8. Sensory Loss (pinprick arms/legs/face) - 0(Normal) 9. Best Language: Aphasia (description/naming/reading) - 0(No aphasia) Initials: sp4 Signatures: Dispatcher [employer] Mary Mckoy, RN RN aa5 Sangeeta Garcia6 Cande Acuña, RN RN zm Dm Mckeon MD MD sp4 Lynda Carter cp4 Bebeto Hoskins RN RN bm8 Vale Dueñas RN RN cc6 Kadeem Hollins, Chase, RN RN nh2
--- NOTE | 2024-10-03 07:53 | EDPHYS ---
Physician Documentation [facility] Name: Elisabeth Law Age: 74 yrs Sex: Female : 1950 Arrival Date: 10/03/2024 Time: 03:17 Bed 5 Private MD: [facility] ED Physician Dm Mckeon HPI: 10/03 03:21 This 74 yrs old Female presents to ER via Unassigned with complaints of Neck sp4 and Upper Back Pain, Shoulder Pain, Weakness. 03:35 74-year-old female presents with complaint of acute midsternal chest pain onset last sp4 night. Patient also complains of persistent neck and right shoulder pain for the past 3 months. Associated generalized weakness. History of coronary artery disease managed by Dr. Roman at [facility]. Patient's medications include amlodipine 10 mg daily, rosuvastatin 10 mg daily, carvedilol 12.5 mg twice daily, Plavix 75 mg daily, Ranexa 500 mg daily, carbidopa levodopa 25 100 mg, amantadine 100 mg daily, memantine 10 mg daily, pramipexole 0.5 mg daily, Ecotrin 81 mg daily, additional prescription medications include amitriptyline and trazodone for anxiety and insomnia. Historical: - Allergies: 03:31 Codeine; cp4 03:31 Morphine; cp4 - Home Meds: 03:31 amantadine HCl 100 mg Oral tablet [Active]; amlodipine 10 mg tablet [Active]; aspirin cp4 81 mg Oral tablet [Active]; carbidopa-levodopa 25-100 mg Oral tablet [Active]; carvedilol 12.5 mg Oral tablet [Active]; clopidogrel 75 mg Oral tablet 1 tab daily [Active]; memantine 10 mg Oral tablet [Active]; pramipexole 0.5 mg Oral tablet [Active]; ranolazine 500 mg Oral tablet [Active]; rosuvastatin 10 mg Oral tablet [Active]; - PMHx: 03:31 Arthritis; diabetes mellitus; Hypertensive disorder; Parkinson's disease; cp4 - PSHx: 03:31 Cholecystectomy; colon resection; hysterectomy; neck; cp4 - Immunization history:: Adult Immunizations up to date. - Infectious Disease History:: Denies. - Social history:: Smoking status: Patient denies any tobacco usage or history of. - Family history:: not pertinent. ROS: 03:35 Constitutional: Negative for fever, chills, and weight loss, positive for chest pain sp4 and generalized weakness. 03:35 All other systems are negative, Exam: 03:35 Constitutional: This is a well developed, well nourished patient who is awake, alert, sp4 and in no acute distress. Head/Face: Normocephalic, atraumatic. Eyes: Pupils equal round and reactive to light, extra-ocular motions intact. Lids and lashes normal. Conjunctiva and sclera are not injected. Cornea within normal limits. Periorbital areas with no swelling, redness, or edema. ENT: Nares patent. No nasal discharge, no septal abnormalities noted. Tympanic membranes are normal and external auditory canals are clear. Oropharynx with no redness, swelling, or masses, exudates, or evidence of obstruction, uvula midline. Mucous membranes moist. Neck: Trachea midline, no thyromegaly or masses palpated, and no cervical lymphadenopathy. Supple, full range of motion without nuchal rigidity, or vertebral point tenderness. Chest/axilla: Normal chest wall appearance and motion. Nontender with no deformity. No lesions are appreciated. Cardiovascular: Regular rate and rhythm with a normal S1 and S2. No gallops, murmurs, or rubs. No pulse deficits. Respiratory: Lungs have equal breath sounds bilaterally, clear to auscultation and percussion. No rales, rhonchi or wheezes noted. No increased work of breathing, no retractions or nasal flaring. Abdomen/GI: Soft, with normal bowel sounds. No distension or tympany. No guarding or rebound. No evidence of tenderness throughout. Back: No spinal tenderness. No costovertebral tenderness. Skin: Warm, dry with normal turgor. Normal color with no rashes, no lesions, and no evidence of cellulitis. MS/ Extremity: Pulses equal, no cyanosis. Neurovascular intact. Full, normal range of motion. Neuro: Awake and alert, GCS 15, oriented to person, place, time, and situation. Cranial nerves II-XII grossly intact. Motor strength 5/5 in all extremities. Sensory grossly intact. Psych: Awake, alert, with orientation to person, place and time. Behavior, mood, and affect are within normal limits 03:35 ECG was reviewed by the Attending Physician. EKG 0 335 normal sinus rhythm normal EKG rate #68 Vital Signs: 03:31 BP 184 / 59; Pulse 72; Resp 18; Temp 98; Pulse Ox 98% ; Weight 68.04 kg; Height 4 ft. 9 cp4 in. ; Pain 6/10; 04:56 BP 165 / 60; Pulse 71; Resp 16; Pulse Ox 99% on R/A; Pain 7/10; zm 06:40 BP 155 / 68; Pulse 78; Resp 17; Temp 98; Pulse Ox 100% ; Pain 2/10; bm8 07:27 BP 158 / 63; Pulse 76; Resp 16 S; Pulse Ox 99% on R/A; aa5 08:16 BP 159 / 61; Pulse 75; Resp 16; Pulse Ox 99% ; nh2 03:31 Body Mass Index 32.46 (68.04 kg, 144.78 cm) cp4 03:31 Pain Scale: Adult cp4 04:56 Pain Scale: Adult zm 06:40 Pain Scale: Adult bm8 NIH Stroke Scale Scores: 03:38 NIHSS Score: 0 sp4 [place] Coma Score: 03:35 Eye Response: spontaneous(4). Motor Response: obeys commands(6). Verbal Response: sp4 oriented(5). Total: 15. 03:59 Eye Response: spontaneous(4). Motor Response: obeys commands(6). Verbal Response: zm oriented(5). Total: 15. 04:56 Eye Response: spontaneous(4). Motor Response: obeys commands(6). Verbal Response: zm oriented(5). Total: 15. 06:40 Eye Response: spontaneous(4). Motor Response: obeys commands(6). Verbal Response: bm8 oriented(5). Total: 15. MDM: 03:21 Medical Screening Exam initiated sp4 07:26 ED course: CLINICAL HISTORY: Confusion. COMPARISON: CT Head 06/19/2024. TECHNIQUE: CT sp4 HEAD WITHOUT IV CONTRAST on 10/03/2024 3:33 AM CDT This exam was performed according to our departmental dose-optimization program, which includes automated exposure control, adjustment of the mA and/or kV according to patient size and/or use of iterative reconstruction technique. FINDINGS: There is no acute hemorrhage, mass effect or midline shift. Corcoran-white differentiation is preserved. There is no hydrocephalus. There is no significant volume loss for age. The calvarium is intact. Orbits and globes are unremarkable. The paranasal sinuses are clear. Mastoid air cells are clear. IMPRESSION: No acute intracranial findings. Electronically signed by: Yariel Davidson MD 10/03/2024 06:58 AM. ED course: CLINICAL HISTORY: Chest pain. COMPARISON: XR Chest 10/03/2024. TECHNIQUE: CT CHESTANGIOGRAPHYWITH IV CONTRAST on 10/03/2024 3:34 AM CDT. MIPS reconstructions were generated. This exam was performed according to our departmental dose-optimization program, which includes automated exposure control, adjustment of the mA and/or kV according to patient size and/or use of iterative reconstruction technique. MIP images were generated. FINDINGS: Thoracic aorta is normal in course and caliber without aneurysm or dissection. Pulmonary arteries are adequately opacified without acute or chronic filling defects. The heart is normal in size. There is no pericardial effusion. Intrathoracic lymph nodes are not enlarged. There is no pleural effusion, pleural thickening or pneumothorax. Central airways are patent. Lungs are clear with no consolidation, mass or interstitial lung disease. There are no acute abnormalities within the limited images of the upper abdomen. There are no acute osseous findings. No suspicious bony lesions. IMPRESSION: No aortic dissection or aneurysm. No pulmonary embolus. No pneumonia. . 21:24 Differential diagnosis: arthritis, cervical strain, Degenerative Disc Disease Diabetic sp4 Neuropathy fracture, torticollis. Data reviewed: vital signs, nurses notes, lab test result(s), EKG, radiologic studies, CT scan, plain films. Consideration of Admission/Observation Escalation of care including admission/observation considered. ED course: Patient was offered admission for further evaluation of chest pain. She has declined admission. 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 Dodd was contacted and requested the patient to come into his office this morning. Patient stable for discharge. All the reports were provided to the patient.. 10/03 03:21 Order name: Basic Metabolic Panel; Complete Time: 06:42 sp4 10/03 03:21 Order name: CBC with Diff; Complete Time: 06:42 sp4 10/03 03:21 Order name: LFT's; Complete Time: 06:42 sp4 10/03 03:21 Order name: Magnesium; Complete Time: 06:42 sp4 10/03 03:21 Order name: NT PRO-BNP; Complete Time: 06:42 sp4 10/03 03:21 Order name: PT-INR; Complete Time: 06:42 sp4 10/03 03:21 Order name: Troponin HS; Complete Time: 06:42 sp4 10/03 03:33 Order name: TSH; Complete Time: 06:42 sp4 10/03 03:33 Order name: T4 Free; Complete Time: 06:42 sp4 10/03 03:21 Order name: XRAY Chest (1 view); Complete Time: 07:50 sp4 10/03 03:33 Order name: CT Head Brain wo Cont; Complete Time: 07:50 sp4 10/03 03:34 Order name: CT Chest For PE Angio; Complete Time: 07:50 sp4 10/03 03:21 Order name: Cardiac monitoring; Complete Time: 03:38 sp4 10/03 03:21 Order name: EKG - Nurse/Tech; Complete Time: 03:38 sp4 10/03 03:21 Order name: IV Saline Lock; Complete Time: 03:50 sp4 10/03 03:21 Order name: Labs collected and sent; Complete Time: 03:50 sp4 10/03 03:21 Order name: O2 Per Protocol; Complete Time: 03:39 sp4 10/03 03:21 Order name: O2 Sat Monitoring; Complete Time: 03:39 sp4 EC:35 Rate is 68 beats/min. Rhythm is regular, Normal Sinus Rhythm. QRS Jackson is Normal. CT sp4 interval is normal. QRS interval is normal. QT interval is normal. No Q waves. T waves are Normal. No ST changes noted. Clinical impression: Normal ECG. Interpreted by me. Reviewed by me. Administered Medications: 03:53 Drug: Ondansetron IVP 4 mg IVP once; over 2 minutes Route: IVP; Site: right antecubital;zm 04:55 Follow up: Response: No adverse reaction zm 03:53 Drug: NS 0.9% IV 500 ml 500 ml IV at 1 bolus once; to be given as a bolus over 30 zm minutes Volume: 500 ml; Route: IV; Rate: 1 bolus; Site: right antecubital; 04:55 Follow up: Response: No adverse reaction; IV Status: Completed infusion zm 03:54 Drug: fentaNYL (PF) IVP 25 mcg IVP once Route: IVP; Site: right antecubital; zm 04:55 Follow up: Response: No adverse reaction zm 04:55 Drug: fentaNYL (PF) IVP 25 mcg IVP once Route: IVP; Site: right antecubital; zm 06:43 Follow up: Response: No adverse reaction bm8 04:55 Drug: Promethazine PO 25 mg PO once Route: PO; zm 06:43 Follow up: Response: No adverse reaction bm8 Disposition Summary: 10/03/24 07:52 Discharge Ordered Problem: new sp4 Symptoms: have improved sp4 Condition: Stable sp4 Diagnosis - Chest pain, unspecified sp4 Followup: sp4 - With: Yesenia Dodd MD - When: Today - Reason: Continuance of care Discharge Instructions: - Discharge Summary Sheet sp4 - Nonspecific Chest Pain, Adult, [id number] sp4 Forms: - Patient Portal Instructions sp4 NIH Stroke Scale - NIH Stroke Score Date: 10/03/2024 Time: 03:38 Total Score = 0 10. Dysarthria (speech clarity - read or repeat words) - 0(Normal) 11. Extinction and Inattention (visual/tactile/auditory/spatial/personal) - 0(No abnormality) 1a. Level of Consciousness (LOC) - 0(Alert) 1b. Level of Consciousness (LOC) (Month \T\ Age) - 0(Both) 1c. LOC Commands (Open \T\ Closes Eyes/High School Chemistry Teacher) - 0(Both) 2. Best Gaze (Lateral Gaze Paresis) - 0(Normal) 3. Visual Field Loss - 0(No visual loss) 4. Facial Palsy - 0(Normal) 5a. Left Arm: Motor (10-second hold) - 0(No drift) 5b. Right Arm: Motor (10-second hold) - 0(No drift) 6a. Left Leg: Motor (5-second hold - always test supine) - 0(No drift) 6b. Right Leg: Motor (5-second hold - always test supine) - 0(No drift) 7. Limb Ataxia (finger/nose \T\ heel/godoy - test with eyes open) - 0(Absent) 8. Sensory Loss (pinprick arms/legs/face) - 0(Normal) 9. Best Language: Aphasia (description/naming/reading) - 0(No aphasia) Initials: sp4 Signatures: Dispatcher [employer] EDMS Cande Acuña, RN RN zm Dm Mckeon MD MD sp4 Lynda Carter cp4 Bebeto Hoskins RN bm8 Corrections: (The following items were deleted from the chart) 03:21 03:21 BASIC METABOLIC PANEL+C.LAB.BRZ ordered. EDMS EDMS 03:21 03:21 CBC+H.LAB.BRZ ordered. EDMS EDMS 03:21 03:21 HEPATIC FUNCTION+C.LAB.BRZ ordered. EDMS EDMS 03:21 03:21 MAGNESIUM+C.LAB.BRZ ordered. EDMS EDMS 03:21 03:21 PROBNP+C.LAB.BRZ ordered. EDMS EDMS 03:21 03:21 PROTIME (+INR)+COAG.LAB.BRZ ordered. EDMS EDMS 03:21 03:21 Troponin High Sensitivity+C.LAB.BRZ ordered. EDMS EDMS 03:22 03:22 Chest Single View+RAD.RAD.BRZ ordered. EDMS EDMS 03:33 03:33 Head Brain Wo Cont+CT.RAD.BRZ ordered. EDMS EDMS 03:34 03:34 Chest For PE Angio+CT.RAD.BRZ ordered. EDMS EDMS
[2024-10-03 09:04] VITALS: TEMP 98
[2024-10-03 09:09] VITALS: O2SAT 99
[2024-10-03 09:11] VITALS: BP 159/61
== END 2024-10-03 08:16 | disposition home or self-care (01) ==
LOC: ER 03:17
DX: R07.9 Chest pain, unspecified (principal); M54.2 Cervicalgia; R53.1 Weakness; M25.511 Pain in right shoulder; I10 Essential (primary) hypertension; I25.10 Atherosclerotic heart disease of native coronary artery without angina pectoris; G20.A1 Parkinson's disease without dyskinesia, without mention of fluctuations; Z79.01 Long term (current) use of anticoagulants
CPT/HCPCS: 96361; 93005; 85025; 80048; 36415; 83735; 85610; 80076; 84443; 84484; 84439; 83880; 70450; 71275; 71045; 96375; 96374; 99285; Q9967; Q0169; J3010 ×2; J2405; J7040